=== PATIENT | male | born 1955 | race Caucasian/White ===

== ENCOUNTER 2017-08-10 14:45 | Inpatient (IN) | payer MEDICARE, MEDICAID ==
[2017-08-10 16:18] LABS: #Lymphocytes 0.5 thou/uL (1.20-3.40); #Monocytes 0.1 thou/uL (0.11-0.59); #Neutrophils 8.2 thou/uL (1.40-6.50); %Eosinophils 0.2 % (0.0-10.0); %Lymphocytes 5.6 % (21.0-51.0); %Monocytes 1.1 % (0.0-10.0); Hemoglobin 14.2 g/dL (14.0-18.0); Mean Corpuscular HGB CONC 32.6 g/dL (32.0-36.0); Mean Corpuscular Hemoglobin 26.7 pg (27.0-31.0); Mean Corpuscular Volume 81.9 fl (80.0-94.0); Mean Platelet Volume 8.1 fL (7.4-10.4); Platelet Count 175 thou/uL (130-400); RBC Distribution Width 17.2 % (11.5-14.5); Red Blood Cell (RBC) Count 5.34 mill/uL (4.70-6.10); White Blood Cell (WBC) Count 8.8 thou/uL (4.8-10.8)
--- NOTE | 2017-08-10 16:28 | RAD ---
PORTABLE AP CHEST X-RAY 08/10/17 HISTORY: Dyspnea. Chest wall pain that started yesterday at work. Pain is increased with deep breathing and ar m movement. COMPARISON: 04/23/17. FINDINGS: A loop recorder again overlies the left mid chest. The cardiac silhouette and pulmonary vasculature a re within normal limits. The lungs are clear. there has been no interval change from the prior exam. IMPRESSION: No acute cardiopulmonary process. POS: [facility]
[2017-08-10 16:37] LABS: ALT (SGPT) 23 U/L (8-55); AST (SGOT) 17 U/L (5-34); Alkaline Phosphatase 78 U/L (40-150); Anion Gap 17 mmol/L (10-20); BUN (Urea Nitrogen) 22 mg/dL (8.4-25.7); Bilirubin, Total 0.4 mg/dL (0.2-1.2); Calc. Creatinine Clearance 0 mL/min (70-130); Calcium 9.5 mg/dL (7.8-10.44); Carbon Dioxide 21 mmol/L (23-31); Chloride 103 mmol/L (98-107); Estimated GFR-MDRD 44; Globulin 2.7 g/dL (2.4-3.5); Glucose 314 mg/dL (80-115); Lipase 25 U/L (8-78); Potassium 3.7 mmol/L (3.5-5.1); Protein, Total 6.7 g/dL (5.8-8.1); Sodium 137 mmol/L (136-145)
[2017-08-10 16:42] LABS: CKMB 2.4 ng/mL (0-6.6); Troponin I 0.019 ng/mL (< 0.028)
[2017-08-10] MEDS ORDERED: HYDROcodone/Acetaminophen 10/325 mg Tablet ONE (17:46)
[2017-08-10] MEDS ORDERED: Dextrose 5% in Water 1,000 ML IV PRN (18:38)
[2017-08-10] MEDS ORDERED: Dextrose 50% Abboject 50 ML SYRINGE SLOW IVP PRN (18:38)
[2017-08-10] MEDS ORDERED: Guaifenesin DM 100-10/5 ML UDCUP PO PRN (18:38)
[2017-08-10] MEDS ORDERED: HumaLOG 300 UNITS/3 ML VIAL SC PRN (18:38)
[2017-08-10] MEDS ORDERED: cefTRIAXone\\ROCEPHIN 1 GM in Sodium Chloride 0.9% 100 ML IVPB SCH (18:38)
[2017-08-10] MEDS ORDERED: Acetaminophen 325 MG TAB PO PRN (18:38)
[2017-08-10] MEDS ORDERED: Potassium Chloride 20 MEQ TAB PO SCH (20:15)
[2017-08-10] MEDS ORDERED: Theophyllin SR 24HR 100 MG CAP PO SCH (21:00)
[2017-08-10] MEDS ORDERED: traZODone HCl 50 MG TAB PO SCH (21:00)
[2017-08-10 21:50] VITALS: BMI 51.5
[2017-08-10] MEDS: cefTRIAXone\\ROCEPHIN 1 GM, Syringe 0.4 ML in Sterile Water 9.6 ML SLOW IVP SCH (22:03)
[2017-08-10] MEDS: Furosemide 40 MG TAB PO SCH (22:07)
[2017-08-10] MEDS: Benzonatate 100 MG CAP PO SCH (22:07)
[2017-08-10] MEDS: Docusate 100 MG CAP PO SCH (22:07)
[2017-08-10] MEDS: busPIRone HCl 5 MG TAB PO SCH (22:07)
[2017-08-10] MEDS: Famotidine 20 MG TAB PO SCH (22:07)
[2017-08-10] MEDS: Sucralfate 1 GM TAB PO SCH (22:08)
[2017-08-10] MEDS: Montelukast Sodium 10 mg Tablet PO SCH (22:08)
[2017-08-10] MEDS: Polyethylene Glycol 3350 17 GM Packet PO SCH (22:08)
[2017-08-10] MEDS: Gabapentin 300 MG CAP PO SCH (22:08)
[2017-08-10] MEDS: Heparin 5,000 UNITS/ML VIAL SC SCH (22:09)
[2017-08-10] MEDS: Insulin Detemir 100 UNITS/ML 40 UNITS in Pre-Filled Syringe 1 EACH SC SCH (22:09)
[2017-08-10] MEDS: Azithromycin 500 MG in Sodium Chloride 0.9% 250 ML 250 ML IVPB SCH (22:10)
[2017-08-10] MEDS: HYDROcodone/Acetaminophen 5/325 mg Tablet PO PRN (22:37)
--- NOTE | 2017-08-10 23:08 | HP ---
REASON FOR ADMISSION: COPD exacerbation, acute respiratory failure with hypoxia. HISTORY OF PRESENTING ILLNESS: The patient gives history of having worsening cough with wheezing from last 2 days. This morning, it got worse. The home health nurse came to check on him and told him to call his qa tester, Dr. Werner. Dr. Werner was on vacation and the office told him to come to the Emergency Room. He is normally on 2 L oxygen at home. He uses CPAP at night. He has cough with expectoration of white phlegm. He has not had any fever at home. He has taken his flu shot for this year. He uses electric chair and walks with a rolling walker for minimal distences inside the house. He stays with his . He has had some chest discomfort due to coughing episodes. PAST MEDICAL AND SURGICAL HISTORY: History of chronic respiratory failure with COPD, on home oxygen; CHF with diastolic dysfunction, morbid obesity, obstructive sleep apnea, on CPAP, has a LINQ recorder, history of toxoid in the past, coronary artery disease with prior stent and PTCA done to LAD in 03/2016, diabetes mellitus type 2 requiring insulin; chronic back pain, on narcotics; severe peripheral neuropathy, the reason for him to be wheelchair bound; hypertension, history of CO in 1996, sinus surgery, cardiac cath x2. CURRENT MEDICATIONS: The patient takes Norvasc 10 mg p.o. daily, Singulair 10 mg p.o. at bedtime, DuoNebs 4 times daily, hydralazine 25 mg twice daily, aspirin 81 mg daily, glipizide 10 mg twice daily, alendronate 70 mg p.o. once weekly, MiraLax 17 g daily, Lasix 40 mg twice daily, Prozac 40 mg q.a.m., lisinopril 10 mg daily, buspirone 5 mg twice daily, potassium chloride 20 mEq twice daily, spironolactone 12.5 mg twice daily, Restoril 30 mg p.o. at bedtime , Protonix 40 mg daily, Zyrtec 10 mg p.o. daily, fluticasone nasal spray, Tessalon 100 mg 3 times daily, Lantus 27 units subcu daily, gabapentin 300 mg 3 times daily, theophylline extended release 200 mg twice daily, Ultram p.r.n. twice dairy, Advair Diskus 500/50 mcg one puff twice daily. ALLERGIES: FLOMAX AND LEVAQUIN. PERSONAL HISTORY: Quit smoking in 1996. Does not abuse alcohol or drugs. He lives with his . FAMILY HISTORY: Mom in her 70s, she of stroke and its complications. She has also had coronary artery disease. Father in his 60s, he has had COPD, heart failure, and hypertension. Had older brother who of COPD and its complications at the age of 63 years. REVIEW OF SYSTEMS: The following complete review of systems was negative, unless otherwise mentioned in the HPI or below: Constitutional: Weight loss or gain, ability to conduct usual activities. Skin: Rash, itching. Eyes: Double vision, pain. ENT/Mouth: Nose bleeding, neck stiffness, pain, tenderness. Cardiovascular: Palpitations, dyspnea on exertion, orthopnea. Respiratory: Shortness of breath, wheezing, cough, hemoptysis, fever or night sweats. Gastrointestinal: Poor appetite, abdominal pain, heartburn, nausea, vomiting, constipation, or diarrhea. Genitourinary: Urgency, frequency, dysuria, nocturia. Musculoskeletal: Pain, swelling. Neurologic/Psychiatric: Anxiety, depression. Allergy/Immunologic: Skin rash, bleeding tendency. PHYSICAL EXAMINATION: GENERAL: The patient is a 61-year-old male who is currently wheezing. VITAL SIGNS: Blood pressure 156/90, pulse 100 per minute, respiratory rate 24 per minute, temperature 98.5 degrees Fahrenheit, and saturating 96% on 3 L nasal cannula. NECK: Supple. No elevated JVD. EYES: Extraocular muscles are intact. Pupils are reacting to light. Oral cavity, mucous membranes are moist. No exudate or congestion. CARDIOVASCULAR SYSTEM: S1, S2 heard. Regular rhythm. RESPIRATORY SYSTEM: Air entry 1+ bilateral. Scattered wheezes plus bilateral. ABDOMEN: Soft, bowel sounds heard. No tenderness, rigidity or guarding. EXTREMITIES: There is 2+ peripheral edema. No calf tenderness. VASCULAR SYSTEM: Peripheral pulses 1+ bilateral. No ischemic ulcerations or gangrene. CENTRAL NERVOUS SYSTEM: No gross focal deficits seen. The patient is alert, awake, oriented well. PSYCHIATRIC SYSTEM: The patient's mood is euthymic. No hallucinations or delusions. LABORATORY DATA AND X-RAY FINDINGS: EKG done shows normal sinus rhythm at 98 beats per minute with nonspecific ST-T wave changes. White count of 8, hemoglobin and hematocrit 14 and 43, platelet count is 175, MCV is 81 with 93% neutrophils. BUN 22, creatinine 1.6, glucose 314. Serum bicarbonate 21. Liver enzymes within normal limits. BNP is 70 and troponin I is within normal limits. Lipase is 25. Influenza A and B antigens are negative. Chest x-ray done shows no acute infiltrate. CLINICAL IMPRESSION AND PLAN: The patient will be admitted to telemetry for acute on chronic obstructive pulmonary disease exacerbation, acute on chronic respiratory failure with hypoxia. He will be placed on ceftriaxone and Zithromax as the patient is allergic to LEVAQUIN. He will also be on Solu- Medrol 40 mg IV q.6 hourly and DuoNebs q.6 hourly. We will continue theophylline extended release as before. We will continue aspirin, Plavix, Lipitor, Norvasc, buspirone, Lasix with potassium, gabapentin, Singulair, MiraLax as before. His Restoril will be held in view of his lung condition at present. We will place him on Levemir 40 units subcu at bedtime for now as the patient will be on steroids. We will consult Dr. Torres who is bond trader for Dr. Werner for Pulmonology. [facility]
[2017-08-11 06:11] LABS: #Eosinphils 0.1 thou/uL (0.0-0.7); #Lymphocytes 0.6 thou/uL (1.20-3.40); #Monocytes 0.1 thou/uL (0.11-0.59); %Eosinophils 1.3 % (0.0-10.0); %Lymphocytes 6.6 % (21.0-51.0); %Monocytes 1.2 % (0.0-10.0); %Neutrophils 90.9 % (42.0-75.0); Hemoglobin 13.9 g/dL (14.0-18.0); Mean Corpuscular HGB CONC 30.4 g/dL (32.0-36.0); Mean Corpuscular Hemoglobin 25.6 pg (27.0-31.0); Mean Corpuscular Volume 84.4 fl (80.0-94.0); Mean Platelet Volume 9.4 fL (7.4-10.4); Platelet Count 218 thou/uL (130-400); RBC Distribution Width 17.5 % (11.5-14.5); Red Blood Cell (RBC) Count 5.41 mill/uL (4.70-6.10); White Blood Cell (WBC) Count 8.8 thou/uL (4.8-10.8)
[2017-08-11 06:21] LABS: ALT (SGPT) 22 U/L (8-55); AST (SGOT) 25 U/L (5-34); Albumin 3.9 g/dL (3.4-4.8); Alkaline Phosphatase 76 U/L (40-150); Anion Gap 22 mmol/L (10-20); BUN (Urea Nitrogen) 25 mg/dL (8.4-25.7); Bilirubin, Total 0.4 mg/dL (0.2-1.2); Calc. Creatinine Clearance 95 mL/min (70-130); Calcium 9.3 mg/dL (7.8-10.44); Carbon Dioxide 16 mmol/L (23-31); Chloride 104 mmol/L (98-107); Estimated GFR-MDRD 41; Globulin 3.3 g/dL (2.4-3.5); Glucose 339 mg/dL (80-115); Potassium 4.6 mmol/L (3.5-5.1); Protein, Total 7.2 g/dL (5.8-8.1); Sodium 137 mmol/L (136-145)
[2017-08-11] MEDS: Potassium Chloride 20 MEQ TAB PO SCH ×2 (07:59→17:21)
[2017-08-11] MEDS: busPIRone HCl 5 MG TAB PO SCH ×2 (08:01→21:26)
[2017-08-11] MEDS: Benzonatate 100 MG CAP PO SCH ×3 (08:01→21:24)
[2017-08-11] MEDS: Atorvastatin Calcium 20 MG TAB PO SCH (08:01)
[2017-08-11] MEDS: Amlodipine 10 MG TAB PO SCH (08:01)
[2017-08-11] MEDS: Clopidogrel Bisulfate 75 MG TAB PO SCH (08:01)
[2017-08-11] MEDS: Heparin 5,000 UNITS/ML VIAL SC SCH ×3 (08:02→22:40)
[2017-08-11] MEDS: Furosemide 40 MG TAB PO SCH ×2 (08:02→21:25)
[2017-08-11] MEDS: Docusate 100 MG CAP PO SCH ×2 (08:02→21:26)
[2017-08-11] MEDS: Famotidine 20 MG TAB PO SCH ×2 (08:02→21:26)
[2017-08-11] MEDS: FLUoxetine HCl 20 MG CAP PO SCH (08:02)
[2017-08-11] MEDS: Gabapentin 300 MG CAP PO SCH ×3 (08:02→21:26)
[2017-08-11] MEDS: HumaLOG 300 UNITS/3 ML VIAL SC PRN ×3 (08:03→17:21)
[2017-08-11] MEDS: Sucralfate 1 GM TAB PO SCH ×2 (08:03→21:25)
[2017-08-11] MEDS: THEOPHYLLINE 80 MG/15 ML PO SCH ×2 (10:13→22:40)
[2017-08-11] MEDS: UDCUP PO SCH ×2 (10:13→22:40)
[2017-08-11] MEDS: HYDROcodone/Acetaminophen 5/325 mg Tablet PO PRN (11:21)
--- NOTE | 2017-08-11 12:01 | PDOC.PN ---
- Subjective Encounter Start Date: 08/11/17 Encounter Start Time: 12:00 Mr. Hernandez says he feels much better. He says he is breathing easier, and his cough has improved. He says he had trouble sleeping, and would like his sleeping medication tonight. - Objective Resuscitation Status: Resuscitation Status FULL:Full Resuscitation MAR Reviewed: Yes Vital Signs & Weight: Vital Signs (12 hours) Temp Pulse Resp BP Pulse Ox 08/11/17 08:01 103 H 08/11/17 07:54 97.7 F 103 H 20 177/91 H 90 L 08/11/17 07:10 97 08/11/17 07:07 95 20 97 08/11/17 04:00 97.8 F 103 H 16 172/105 H 91 L 08/11/17 00:02 100 20 97 Weight Weight 329 lb I&O: 08/10/17 08/11/17 08/12/17 06:59 06:59 06:59 Intake Total 240 Output Total 1500 Balance -1260 Result Diagrams: 08/11/17 04:06 08/11/17 04:06 Additional Labs: Accuchecks 08/11/17 08/10/17 05:59 21:52 POC Glucose 276 H 385 H Phys Exam - Physical Examination HEENT: PERRLA Respiratory: no wheezing decreased air movement Cardiovascular: RRR, no significant murmur Gastrointestinal: soft, non-tender, positive bowel sounds Musculoskeletal: edema present 2+ edema, bilaterally with chronic venous stasis changes Dx/Plan (1) Acute and chronic respiratory failure with hypoxia Code(s): J96.21 - ACUTE AND CHRONIC RESPIRATORY FAILURE WITH HYPOXIA Status: Acute Comment: Continue pulmonary support, Duonebs, Spiriva, Symbicort, Solumedrol, O2, Rocephin d/c'd, Doxycycline 100mg BID (2) COPD exacerbation Code(s): J44.1 - CHRONIC OBSTRUCTIVE PULMONARY DISEASE W (ACUTE) EXACERBATION Status: Chronic Comment: See #1 (3) DM type 2 (diabetes mellitus, type 2) Status: Chronic (4) Hypertension Code(s): I10 - ESSENTIAL (PRIMARY) HYPERTENSION Status: Chronic Qualifiers: (5) Morbid obesity Code(s): E66.01 - MORBID (SEVERE) OBESITY DUE TO EXCESS CALORIES Status: Chronic - Plan * Acute on chronic respiratory failure with hypoxemia due to COPD exacerbation- improved overnight * Will change to oral steroids, and re-assess in the AM * Continue Rocephin and Azithromycin, as well as Duonebs * DM- blood glucose is elevated- likely from steroids- will re-start Glyburide * HTN- blood pressure is elevated- will re-start Hydralazine and monitor.
[2017-08-11] MEDS ORDERED: hydrALAZINE 25 MG TAB PO PRN (12:04)
--- NOTE | 2017-08-11 15:39 | EKG ---
Test Reason : Blood Pressure : / mmHG Vent. Rate : 098 BPM Atrial Rate : 098 BPM P-R Int : 122 ms QRS Dur : 092 ms QT Int : 394 ms P-R-T Axes : 033 002 024 degrees QTc Int : 503 ms Sinus rhythm with Premature atrial complexes Possible Left atrial enlargement Prolonged QT Abnormal ECG Confirmed by PEPE CROWDER, DENNY ([id number]), editor newspaper LATRICIA SWARTZ ([id number]) on 08/11/2017 3:39:04 PM Referred By: Confirmed By:DENNY CANTU MD
[2017-08-11] MEDS ORDERED: clonazePAM 1 MG TAB PO SCH (21:00)
[2017-08-11] MEDS ORDERED: traZODone HCl 50 MG TAB PO SCH (21:00)
[2017-08-11] MEDS: Montelukast Sodium 10 mg Tablet PO SCH (21:25)
[2017-08-11] MEDS: hydrALAZINE 25 MG TAB PO SCH (21:25)
[2017-08-11] MEDS: glipiZIDE 10 MG TAB PO SCH (21:25)
[2017-08-11] MEDS: Polyethylene Glycol 3350 17 GM Packet PO SCH (21:29)
[2017-08-11] MEDS: cefTRIAXone\\ROCEPHIN 1 GM, Syringe 0.4 ML in Sterile Water 9.6 ML SLOW IVP SCH (22:39)
[2017-08-11] MEDS: Azithromycin 500 MG in Sodium Chloride 0.9% 250 ML 250 ML IVPB SCH (22:40)
[2017-08-11] MEDS: Insulin Detemir 100 UNITS/ML 40 UNITS in Pre-Filled Syringe 1 EACH SC SCH (22:41)
[2017-08-12 04:42] LABS: #Lymphocytes 1.5 thou/uL (1.20-3.40); #Neutrophils 10.6 thou/uL (1.40-6.50); %Basophils 0.1 % (0.0-1.0); %Eosinophils 0.1 % (0.0-10.0); %Lymphocytes 11.6 % (21.0-51.0); %Monocytes 7.7 % (0.0-10.0); %Neutrophils 80.5 % (42.0-75.0); Hemoglobin 13.1 g/dL (14.0-18.0); Mean Corpuscular HGB CONC 31.5 g/dL (32.0-36.0); Mean Corpuscular Hemoglobin 25.9 pg (27.0-31.0); Mean Corpuscular Volume 82.4 fl (80.0-94.0); Mean Platelet Volume 7.8 fL (7.4-10.4); Platelet Count 200 thou/uL (130-400); RBC Distribution Width 17.2 % (11.5-14.5); Red Blood Cell (RBC) Count 5.05 mill/uL (4.70-6.10); White Blood Cell (WBC) Count 13.2 thou/uL (4.8-10.8)
[2017-08-12 05:01] LABS: Anion Gap 14 mmol/L (10-20); BUN (Urea Nitrogen) 30 mg/dL (8.4-25.7); Calc. Creatinine Clearance 99 mL/min (70-130); Carbon Dioxide 24 mmol/L (23-31); Chloride 106 mmol/L (98-107); Estimated GFR-MDRD 43; Glucose 142 mg/dL (80-115); Potassium 3.2 mmol/L (3.5-5.1); Sodium 141 mmol/L (136-145)
[2017-08-12 06:35] VITALS: TEMP 97.9
[2017-08-12] MEDS ORDERED: predniSONE 20 MG TAB PO SCH (08:00)
[2017-08-12] MEDS: Amlodipine 10 MG TAB PO SCH (09:26)
[2017-08-12 09:27] VITALS: BP 167/93
[2017-08-12] MEDS: Potassium Chloride 20 MEQ TAB PO SCH (09:27)
[2017-08-12] MEDS: Famotidine 20 MG TAB PO SCH (09:27)
[2017-08-12] MEDS: Furosemide 40 MG TAB PO SCH (09:27)
[2017-08-12] MEDS: Sucralfate 1 GM TAB PO SCH (09:27)
[2017-08-12] MEDS: hydrALAZINE 25 MG TAB PO SCH (09:27)
[2017-08-12] MEDS: Benzonatate 100 MG CAP PO SCH ×2 (09:28→14:31)
[2017-08-12] MEDS: Atorvastatin Calcium 20 MG TAB PO SCH (09:28)
[2017-08-12] MEDS: glipiZIDE 10 MG TAB PO SCH (09:28)
[2017-08-12] MEDS: FLUoxetine HCl 20 MG CAP PO SCH (09:28)
[2017-08-12] MEDS: Gabapentin 300 MG CAP PO SCH ×2 (09:28→14:31)
[2017-08-12] MEDS: Clopidogrel Bisulfate 75 MG TAB PO SCH (09:28)
[2017-08-12] MEDS: Docusate 100 MG CAP PO SCH (09:29)
[2017-08-12] MEDS: busPIRone HCl 5 MG TAB PO SCH (09:29)
[2017-08-12] MEDS: Heparin 5,000 UNITS/ML VIAL SC SCH ×2 (09:29→14:31)
--- NOTE | 2017-08-12 14:00 | PDOC.PN ---
- Subjective Encounter Start Date: 08/12/17 Encounter Start Time: 13:59 was seen today in follow-up of Acute on chronic respiratory failure. He says he feels much better. He feels he is at his baseline. - Objective Resuscitation Status: Resuscitation Status FULL:Full Resuscitation MAR Reviewed: Yes Vital Signs & Weight: Vital Signs (12 hours) Temp Pulse Resp BP BP Pulse Ox 08/12/17 09:27 87 167/93 H 08/12/17 09:26 87 167/93 H 08/12/17 08:00 97.9 F 87 22 H 167/93 H 96 08/12/17 04:35 97.9 F 87 20 164/102 H 94 L Weight Weight 329 lb I&O: 08/11/17 08/12/17 08/13/17 06:59 06:59 06:59 Intake Total 1720 Output Total 2200 Balance -480 Result Diagrams: 08/12/17 03:55 08/12/17 03:55 Additional Labs: Accuchecks 08/12/17 08/12/17 08/11/17 12:25 04:34 16:57 POC Glucose 117 H 130 H 280 H Phys Exam - Physical Examination HEENT: PERRLA Respiratory: no rales, wheezing present Cardiovascular: RRR, no significant murmur, no rub Gastrointestinal: soft, non-tender, positive bowel sounds Musculoskeletal: edema present trace pedal edema Dx/Plan (1) Acute and chronic respiratory failure with hypoxia Code(s): J96.21 - ACUTE AND CHRONIC RESPIRATORY FAILURE WITH HYPOXIA Status: Acute Comment: Continue pulmonary support, Duonebs, Spiriva, Symbicort, Solumedrol, O2, Rocephin d/c'd, Doxycycline 100mg BID (2) COPD exacerbation Code(s): J44.1 - CHRONIC OBSTRUCTIVE PULMONARY DISEASE W (ACUTE) EXACERBATION Status: Chronic Comment: See #1 (3) DM type 2 (diabetes mellitus, type 2) Status: Chronic (4) Hypertension Code(s): I10 - ESSENTIAL (PRIMARY) HYPERTENSION Status: Chronic Qualifiers: (5) Morbid obesity Code(s): E66.01 - MORBID (SEVERE) OBESITY DUE TO EXCESS CALORIES Status: Chronic - Plan * Acute on chronic respiratory failure- improving * DM- blood glucose is stable * He can be transitioned to oral antibiotics, and plan on discharge home today with close Outpatient Follow-up..
[2017-08-12] MEDS: THEOPHYLLINE 80 MG/15 ML PO SCH (14:29)
[2017-08-12] MEDS: UDCUP PO SCH (14:29)
--- NOTE | 2017-08-12 23:02 | DIS ---
PRIMARY CARE PHYSICIAN: Kashmir Edwards D.O. DATE OF ADMISSION: 08/10/2017 DATE OF DISCHARGE: 08/12/2017 DISCHARGE DISPOSITION: Home. PRIMARY DISCHARGE DIAGNOSES: 1. Chronic obstructive pulmonary disease exacerbation. 2. Diabetes mellitus, type 2. 3. Obstructive sleep apnea on CPAP. 4. History of coronary artery disease with stent. 5. Severe peripheral neuropathy. 6. Chronic diastolic heart failure and the patient also has history of chronic respiratory failure w ith hypoxemia on home O2. 7. Morbid obesity. CODE STATUS: FULL CODE. ALLERGIES: LEVAQUIN and FLOMAX. HOSPITAL COURSE: Mr. Hernandez is a pleasant 61-year-old gentleman who came to the emergency room with c omplaints of shortness of breath. He was found to be hypoxic. He had been trying to treat himself a t home without relief. As a result, he came to the emergency room where he was admitted with a COPD exacerbation. Chest x-ray showed no acute pulmonary process such as pneumonia. He was treated with empiric IV antibiotics as well as IV steroids and DuoNebs and cough suppressants. He was improved af ter a few days in the hospital and was subsequently able to be discharged home; however, he will need close outpatient follow up hopefully within the week as he does have a history of severe COPD and to follow up again within 1-2 days with his primary care physician.
== END 2017-08-12 16:14 | disposition home or self-care (01) | DRG 189 ==
LOC: ERS 14:45 → ERHOLD 16:51 → 2NO 21:27 → T4-A 08-11 20:40
PROVIDERS: ADMIT Internal Medicine; ATTEND Internal Medicine
DX: J96.21 Acute and chronic respiratory failure with hypoxia (principal); I11.0 Hypertensive heart disease with heart failure; I50.32 Chronic diastolic (congestive) heart failure; E66.01 Morbid (severe) obesity due to excess calories; Z99.81 Dependence on supplemental oxygen; J44.1 Chronic obstructive pulmonary disease with (acute) exacerbation; Z68.43 Body mass index [BMI] 50.0-59.9, adult; E87.5 Hyperkalemia; G62.9 Polyneuropathy, unspecified; E11.9 Type 2 diabetes mellitus without complications; G47.33 Obstructive sleep apnea (adult) (pediatric); I25.10 Atherosclerotic heart disease of native coronary artery without angina pectoris; Z95.5 Presence of coronary angioplasty implant and graft; F17.210 Nicotine dependence, cigarettes, uncomplicated
CPT/HCPCS: 36415; 36416; 71045; 80048; 80053; 82553; 83690; 83880; 84484; 85025; 87040; 87804; 93005; 94640; 99406; A4216; G8978-GP-CJ; G8979-GP-CI; J0456; J0696; J1644; J1815; J2920; J7050; J7506; J7620

== ENCOUNTER 2017-09-05 16:39 | Inpatient (IN) | payer MEDICARE, MEDICAID ==
[2017-09-05 17:14] LABS: #Basophils 0.1 thou/uL (0.0-0.2); #Eosinphils 0.1 thou/uL (0.0-0.7); #Lymphocytes 1.7 thou/uL (1.20-3.40); #Neutrophils 15.8 thou/uL (1.40-6.50); %Basophils 0.4 % (0.0-1.0); %Eosinophils 0.3 % (0.0-10.0); %Lymphocytes 9.2 % (21.0-51.0); %Monocytes 5.3 % (0.0-10.0); %Neutrophils 84.9 % (42.0-75.0); Hemoglobin 14.6 g/dL (14.0-18.0); Mean Corpuscular HGB CONC 32.5 g/dL (32.0-36.0); Mean Corpuscular Hemoglobin 27.2 pg (27.0-31.0); Mean Corpuscular Volume 83.6 fl (80.0-94.0); Mean Platelet Volume 7.7 fL (7.4-10.4); Platelet Count 195 thou/uL (130-400); RBC Distribution Width 17.8 % (11.5-14.5); Red Blood Cell (RBC) Count 5.36 mill/uL (4.70-6.10); White Blood Cell (WBC) Count 18.6 thou/uL (4.8-10.8)
[2017-09-05 17:17] LABS: PTT 30.4 SEC (22.9-36.1)
[2017-09-05 17:18] LABS: Prothrombin Time 12.9 SEC (12.0-14.7)
[2017-09-05 17:20] LABS: Actual Bicarbonate (HCO3a) 24.2 mEq/L (22-26); Base Excess (BEa) 0.1 mEq/L (0 (+/-) 2.5); CO2 Tension 37.6 mmHg (35.0-45.0); Hematocrit-ABG 47.8 % (42.0-52.0); Hemoglobin (Hb) 14.3 g/dL (14.0-18.0); O2 Tension (PaO2) 85.3 mmHg (80.0-100.0); pH, Arterial 7.43 (7.35-7.45)
[2017-09-05 17:21] LABS: Calcium, Ionized 1.2 mmol/L (1.12-1.30); Puncture Site LRA
[2017-09-05] MEDS ORDERED: Dexamethasone 4 mg/ml Vial ONE (17:23)
[2017-09-05] MEDS ORDERED: Albuterol Sulfate 2.5 mg/0.5 ml Neb ONE ×2 (17:24)
[2017-09-05] MEDS ORDERED: Magnesium 2 GM/NS 0.9% 100 ML 2 GM in Premix Bag 1 BAG IVPB SCH (17:30)
[2017-09-05 17:32] LABS: ALT (SGPT) 16 U/L (8-55); AST (SGOT) 13 U/L (5-34); Albumin 3.9 g/dL (3.4-4.8); Alkaline Phosphatase 80 U/L (40-150); Anion Gap 17 mmol/L (10-20); BUN (Urea Nitrogen) 19 mg/dL (8.4-25.7); Bilirubin, Total 0.6 mg/dL (0.2-1.2); Calc. Creatinine Clearance 0 mL/min (70-130); Calcium 9.2 mg/dL (7.8-10.44); Carbon Dioxide 23 mmol/L (23-31); Chloride 99 mmol/L (98-107); Estimated GFR-MDRD 40; Globulin 2.9 g/dL (2.4-3.5); Glucose 371 mg/dL (80-115); Potassium 3.9 mmol/L (3.5-5.1); Protein, Total 6.8 g/dL (5.8-8.1); Sodium 135 mmol/L (136-145)
[2017-09-05] MEDS ORDERED: Ondansetron HCl/PF 4 MG/2 ML Vial ONE (17:32)
[2017-09-05 17:36] LABS: CK (CPK) 255 U/L (30-200); Lipase 27 U/L (8-78)
[2017-09-05 17:38] LABS: CKMB 1.6 ng/mL (0-6.6); Troponin I 0.036 ng/mL (< 0.028)
--- NOTE | 2017-09-05 17:44 | RAD ---
PORTABLE CHEST: 09/05/17 COMPARISON: 08/10/17 study. HISTORY: Shortness of breath. FINDINGS: Heart size is within normal limits. There is some atherosclerotic changes of the aorta. The lungs dave w some chronic change without focal infiltrates. Some questionable slight blunting to the left costop hrenic angle. This could be technique related. IMPRESSION: Slight blunting to the left costophrenic angle. This could indicate a small effusion. PA and lateral chest film would be suggested if indicated. This could just be related to technique and overlap of ri bs and soft tissues. POS: [facility]
[2017-09-05] MEDS ORDERED: Azithromycin 500 MG in Sodium Chloride 0.9% 250 ML 250 ML IVPB ONE (17:45)
[2017-09-05 18:32] LABS: Bilirubin Negative (Negative); Blood, Urine Negative (Negative); Clarity CLEAR (Clear); Glucose, Urine (Dipstick) 500 mg/dL (Negative); Leukocyte Negative (Negative); Nitrite Negative (Negative); Protein, Urine (Dipstick) 30 mg/dL (Neg-Trace); Specific Gravity, Urine 1.014 (1.002-1.036); Urobilinogen 0.2 mg/dL (0.2-1.0)
[2017-09-05 18:35] LABS: Bacteria/HPF 2+ HPF (None Seen); Hyaline Casts/LPF 0-3 HYALINE CAST LPF (0-3 Hyaline); RBC/HPF None Seen HPF (0-3); Squamous Epithelial None Seen HPF (0-3); WBC/HPF 0-3 HPF (0-3)
[2017-09-05] MEDS ORDERED: Nitroglycerin 2% Ointment 1 INCH/1 GM Packet ONE (19:01)
[2017-09-05] MEDS ORDERED: Dextrose 50% Abboject 50 ML SYRINGE SLOW IVP PRN (20:28)
[2017-09-05] MEDS ORDERED: Dextrose 5% in Water 1,000 ML IV PRN (20:28)
[2017-09-05] MEDS ORDERED: Nitroglycerin 0.4 MG TAB (25 Tab Bottle) PO PRN (20:29)
[2017-09-05] MEDS ORDERED: Furosemide 100 MG in Sodium Chloride 0.9% 100 ML IVPB SCH (20:30)
[2017-09-05] MEDS ORDERED: Calcium Carbonate 500 MG ChewTAB PO PRN (20:31)
[2017-09-05] MEDS ORDERED: Ondansetron ODT 4 MG TAB PO PRN (20:31)
[2017-09-05] MEDS ORDERED: Ondansetron HCl/PF 4 MG/2 ML Vial IVP PRN (20:31)
[2017-09-05] MEDS ORDERED: Acetaminophen 325 MG TAB PO PRN (20:31)
[2017-09-05] MEDS ORDERED: Senokot 8.6 MG TAB PO PRN (20:31)
[2017-09-05] MEDS ORDERED: Bisacodyl 10 MG SUPP PR PRN (20:31)
--- NOTE | 2017-09-05 20:49 | HP ---
DATE OF ADMISSION: 09/05/2017 PRIMARY CARE PHYSICIAN: Dr. Kashmir Edwards. PRIMARY RADIO COMMUNICATION COORDINATOR: The patient has seen Dr. Katz in the past. CHIEF COMPLAINT: Shortness of breath. HISTORY OF PRESENT ILLNESS: The patient is a 61-year-old male with morbid obesity; COPD; chronic shital stolic heart failure; obstructive sleep apnea, on CPAP; chronic respiratory failure, on home O2; rubi nary artery disease, status post stent; and diabetes mellitus, type 2; presented to the emergency [facility] with above complaints. The patient was discharged from this facility approximately 3 weeks ago wit h a diagnosis of COPD exacerbation. Over the last one week, the patient has gradual worsening shortness of breath along with wheezing and productive cough. He has gained around 11 pounds in the last 10 days or so. He states that he is c ompliant with fluid restriction and his medications. He was short of breath on minimal exertion. He denies any fevers, chills, or sick contacts. No chest pain, palpitations, diaphoresis, nausea or vo miting reported. In the emergency room, his initial vital signs showed temperature 98.6, respiration of 22, pulse rate of 108 with a blood pressure of 199/106 with O2 saturation of 100% on nonrebreather. His chest x-ra y was negative for infiltrate. It showed small bilateral pleural effusion. His EKG showed sinus tac hycardia with left axis deviation and PVCs. He received IV fluids, aspirin, ceftriaxone, Decadron, D uoNebs, and nebulizer treatment along with nitro patch in the emergency room. PAST MEDICAL HISTORY: 1. Chronic diastolic heart failure. 2. Obstructive sleep apnea, on CPAP. 3. Chronic respiratory failure, on home oxygen. 4. Morbid obesity. 5. Diabetes mellitus, type 2. 6. Hypertension. 7. Dyslipidemia. 8. Coronary artery disease, status post myocardial infarction and stent placement. 9. Pulmonary hypertension. 10. Chronic obstructive pulmonary disease. 11. Peripheral neuropathy. 12. Chronic low back pain. PAST SURGICAL HISTORY: 1. Cardiac catheterization. 2. Sinus surgery. 3. Coronary stent placement in 2016. ALLERGIES: The patient is allergic to FLOMAX that causes nausea and LEVAQUIN that causes cardiac pro blems. SOCIAL HISTORY: The patient is a former smoker, quit in 1996. He is disabled, lives at home, FULL C ODE, makes his own decisions with the help of his family. FAMILY HISTORY: Positive for father with heart disease and mother with stroke. REVIEW OF SYSTEMS: The following complete review of systems was negative, unless otherwise mentioned in the HPI or below: Constitutional: Weight loss or gain, ability to conduct usual activities. Skin: Rash, itching. Eyes: Double vision, pain. ENT/Mouth: Nose bleeding, neck stiffness, pain, tenderness. Cardiovascular: Palpitations, dyspnea on exertion, orthopnea. Respiratory: Shortness of breath, wheezing, cough, hemoptysis, fever or night sweats. Gastrointestinal: Poor appetite, abdominal pain, heartburn, nausea, vomiting, constipation, or diarr hea. Genitourinary: Urgency, frequency, dysuria, nocturia. Musculoskeletal: Pain, swelling. Neurologic/Psychiatric: Anxiety, depression. Allergy/Immunologic: Skin rash, bleeding tendency. HOME MEDICATIONS: The patient is unable to recall any of his home medications. Family to bring accu rate list of medications later today. PHYSICAL EXAMINATION: VITAL SIGNS: As discussed above. GENERAL: A 61-year-old male, morbidly obese, in mild respiratory distress, able to complete short ph rases. HEENT: Head atraumatic, normocephalic. Sclerae are anicteric. Moist mucous membrane, no oral lesio n. NECK: Supple. JVD cannot be appreciated due to body habitus. LUNGS: Showed scattered wheezing with bibasilar rales. HEART: S1, S2 present. Regular rate and rhythm, tachycardic, no heaves or pulsation. ABDOMEN: Obese, soft. Bowel sounds present. EXTREMITIES: 4+ edema in bilateral lower extremities with some calf tenderness. SKIN: Warm and dry. LYMPH NODES: No palpable lymph nodes in the neck. PERIPHERAL VASCULAR: Radial pulses palpable bilaterally. MUSCULOSKELETAL: No joint swelling or tenderness. NEUROLOGIC: Grossly nonfocal, moves all four extremities. PSYCHIATRY: Alert, awake, oriented x3. LABORATORY AND X-RAY FINDINGS: 1. CBC showed WBC 18.6 with a platelet count of 195, hemoglobin 14.6. 2. PT, INR, PTT are in normal range. 3. Blood gases showed pH 7.43 with pCO2 of 37.6, pO2 85.3. 4. Chemistries showed sodium 135, potassium 3.9, chloride 99, bicarbonate 23, BUN 19, creatinine 1.7 5, glucose 371. Lactic acid 3.2. 5. Troponin of 0.036. 6. CK was 255, lipase was normal. 7. Influenza testing was negative. 8. Chest x-ray and EKG by my review as discussed above. IMPRESSION: 1. Acute on chronic diastolic heart failure. 2. Chronic obstructive pulmonary disease exacerbation. 3. Sepsis secondary to suspected pneumonia, questionable pneumococcal. 4. Hypertension. 5. Obstructive sleep apnea, on CPAP. 6. Morbid obesity. 7. Diabetes mellitus, type 2. 8. Chronic respiratory failure, on home oxygen. 9. Coronary artery disease, status post stent placement. 10. Diabetic neuropathy. 11. Chronic pain syndrome. 12. Hyponatremia. 13. Chronic kidney disease, stage 3. 14. Elevated troponins, probably secondary to congestive heart failure. PLAN: The patient will be monitored in the telemetry unit. The patient has elevated lactic acid. H e is intravascularly depleted and has third spacing. He will probably benefit from gentle diuresis w ith Lasix drip. We will also continue nebulizer treatment with low dose steroids. Cardiology will b e consulted. His last echocardiogram was in March of last year. His last cardiac catheterization w as in 03/2016. He had LAD stent placement at that time. We will get serial cardiac enzymes. Repeat lactic acid in a.m. Due to bilateral lower extremity swelling and pain, we will rule out deep venou s thrombosis. We will continue aspirin and Plavix. Insulin sliding scale. Resume home CPAP. Monit or renal function closely. Resume his home pain regimen once confirmed. Plan of care was discussed with the patient in detail. He stated understanding.
[2017-09-05] MEDS ORDERED: Sodium Chloride 0.9% 10 ML ONE (21:29)
[2017-09-05] MEDS ORDERED: Furosemide 20 MG/2 ML VIAL SLOW IVP SCH (21:30)
[2017-09-05] MEDS: Insulin Detemir 100 UNITS/ML 15 UNITS in Pre-Filled Syringe SC SCH (21:39)
[2017-09-05] MEDS: Docusate 100 MG CAP PO SCH (21:39)
[2017-09-05] MEDS: Famotidine 20 MG TAB PO SCH (21:39)
[2017-09-05] MEDS: Insulin Regular 300 UNITS/3 ML VIAL SC PRN (22:01)
[2017-09-05 22:06] LABS: Lactic Acid 2.6 mmol/L (0.5-2.2)
[2017-09-05 22:15] LABS: Troponin I 0.039 ng/mL (< 0.028)
[2017-09-05 22:57] VITALS: BMI 52.2
[2017-09-06 00:01] LABS: Troponin I 0.033 ng/mL (< 0.028)
[2017-09-06] MEDS: Insulin Regular 300 UNITS/3 ML VIAL SC PRN ×5 (02:46→20:43)
[2017-09-06 05:06] LABS: #Lymphocytes 0.7 thou/uL (1.20-3.40); #Monocytes 0.3 thou/uL (0.11-0.59); #Neutrophils 15.4 thou/uL (1.40-6.50); %Eosinophils 0.2 % (0.0-10.0); %Lymphocytes 4.4 % (21.0-51.0); %Monocytes 1.9 % (0.0-10.0); %Neutrophils 93.5 % (42.0-75.0); Hemoglobin 13.7 g/dL (14.0-18.0); Mean Corpuscular Volume 84.4 fl (80.0-94.0); Mean Platelet Volume 8.1 fL (7.4-10.4); Platelet Count 174 thou/uL (130-400); RBC Distribution Width 17.4 % (11.5-14.5); Red Blood Cell (RBC) Count 5.06 mill/uL (4.70-6.10); White Blood Cell (WBC) Count 16.5 thou/uL (4.8-10.8)
[2017-09-06 05:29] LABS: Albumin 3.7 g/dL (3.4-4.8); Anion Gap 16 mmol/L (10-20); BUN (Urea Nitrogen) 21 mg/dL (8.4-25.7); Calc. Creatinine Clearance 92 mL/min (70-130); Calcium 8.9 mg/dL (7.8-10.44); Carbon Dioxide 22 mmol/L (23-31); Chloride 102 mmol/L (98-107); Estimated GFR-MDRD 39; Glucose 422 mg/dL (80-115); Magnesium 2.2 mg/dL (1.6-2.6); Phosphorus 3.2 mg/dL (2.3-4.7); Sodium 136 mmol/L (136-145)
--- NOTE | 2017-09-06 07:52 | ULT ---
BILATERAL LOWER EXTREMITY VENOUS DOPPLER ULTRASOUND: Date: 09/06/17 HISTORY: Bilateral lower extremity edema, pain, and redness. TECHNIQUE: Katz scale ultrasound with color flow and spectral Doppler imaging of the deep venous systems of the lower extremities was performed bilaterally. FINDINGS: There is good flow, compression, and augmentation noted in the common femoral, femoral, deep femoral, popliteal, posterior tibial, and greater saphenous veins on either side. IMPRESSION: No evidence of deep venous thrombosis in either lower extremity. POS: [facility]
[2017-09-06] MEDS ORDERED: predniSONE 20 MG TAB PO SCH (08:00)
[2017-09-06] MEDS: Aspirin 81 mg Enteric Coated Tablet PO SCH (08:09)
[2017-09-06] MEDS: Enoxaparin Sodium 40 MG/0.4 ML SYRINGE SC SCH (08:10)
[2017-09-06] MEDS: Cefdinir 300 MG CAP PO SCH (08:10)
[2017-09-06] MEDS: Docusate 100 MG CAP PO SCH ×2 (08:10→20:41)
[2017-09-06] MEDS: Clopidogrel Bisulfate 75 MG TAB PO SCH (08:10)
[2017-09-06] MEDS ORDERED: Insulin Detemir 100 UNITS/ML 15 UNITS in Pre-Filled Syringe SC SCH (09:00)
[2017-09-06] MEDS: Insulin Detemir 100 UNITS/ML 25 UNITS in Pre-Filled Syringe 1 EACH SC SCH (10:08)
[2017-09-06] MEDS ORDERED: Furosemide 100 MG/10 ML VIAL SLOW IVP SCH (14:00)
--- NOTE | 2017-09-06 14:19 | CON ---
DATE OF CONSULTATION: 09/06/2017 REASON FOR CONSULTATION: Shortness of breath. HISTORY OF PRESENT ILLNESS: Mr. Hernandez is a pleasant 61-year-old white gentleman who comes to the [facility] for increased shortness of breath. He has a history of COPD and he is on chronic home O2 at 2 liters. He had been followed by Dr. Katz in the past for diastolic heart failure. He also has coron tia artery disease status post stenting to his LAD. He has got 2 stents there, placed in 2014. He c omes in for the last 1-2 weeks he has been noticing increased shortness of breath, slowly getting wor se. He also noticed increased leg swelling as well as abdominal distention, now slowly getting worse . He got to the point where he could not lay down on his back and he felt really short of breath wit h doing any activity. He decided to come in for evaluation. Here, he was admitted and started on IV Lasix. He is actually on Lasix drip right now at 5 mg per hour and has diuresed some and he already feels much better. He was discharged about 3 weeks ago from this facility for COPD exacerbation. PAST MEDICAL HISTORY: 1. Chronic diastolic heart failure. 2. Obstructive sleep apnea, on CPAP at home. 3. Chronic respiratory insufficiency, on home O2. 4. Chronic obstructive pulmonary disease. 5. Morbid obesity. 6. Type 2 diabetes. 7. Hypertension. 8. Hyperlipidemia. 9. Coronary artery disease, status post stenting to the LAD. 10. Pulmonary hypertension. 11. Peripheral neuropathy. 12. Chronic low back pain. PAST SURGICAL HISTORY: 1. Cardiac catheterization with stenting as above. 2. Sinus surgery. ALLERGIES: FLOMAX, causes nausea; LEVAQUIN, causes heart issues in the past. OUTPATIENT MEDICATIONS: Include, 1. Albuterol inhaler. 2. DuoNeb. 3. Advair. 4. Tessalon Perles. 5. Trazodone 100 mg at bedtime. 6. Tramadol p.r.n. 7. Levemir 42 units subcutaneously at bedtime. 8. Insulin Humalog KwikPen 14 units subcu before each meal. 9. Ferrous sulfate. 10. Singulair. 11. Hydralazine 25 mg p.o. b.i.d. 12. Glipizide 10 mg b.i.d. 13. Gabapentin 300 mg t.i.d. 14. Lasix 40 mg p.o. b.i.d. 15. Prozac 50 mg daily. 16. Potassium chloride 40 mEq t.i.d. 17. Protonix 40 mg a day. 18. Klonopin 1 mg at bedtime. 19. BuSpar 5 mg b.i.d. 20. Plavix 75 mg a day. 21. Benzonatate. 22. Atorvastatin 20 mg at bedtime. 23. Aspirin 81 daily. 24. Amlodipine 10 mg daily. 25. Theophylline 1 capsule b.i.d. 26. Aldactone 12.5 mg p.o. b.i.d. 27. Prednisone 20 mg q.a.m. SOCIAL HISTORY: Former smoker, quit in 1996. No alcohol, tobacco, or drugs currently. FAMILY HISTORY: Positive for heart disease in father, mother with a stroke, otherwise noncontributor y. REVIEW OF SYSTEMS: A 12-point review of systems was done and is all negative unless stated in the h istory of present illness. PHYSICAL EXAMINATION: VITAL SIGNS: Temperature 98.2, pulse 91, respiratory rate 18, satting 91% on 2 liters, blood pressur e 158/86. GENERAL: Awake, alert, oriented x3, in no distress. HEENT: Normocephalic and atraumatic. NECK: Supple, JVD cannot be assessed due to patient's body habitus. LUNGS: Have reduced breath sounds bilaterally. CARDIOVASCULAR: Distant heart sounds, but S1, S2, no S3 or S4, regular. ABDOMEN: Distended but nontender. He states it is better than yesterday. EXTREMITIES: 2+ edema. SKIN: Warm and dry. LABORATORY WORK: Reviewed. White count of 18,000 on arrival, down to 16; hemoglobin 14; hematocrit 44; platelet count 195. Coags were normal. ABG was unremarkable. Chemistry was reviewed. Creatini ne 1.7, GFR 39, glucose in the 300. Lactic acid was 2.6, troponin has been indeterminate range 0.03, 0.03, 0.03 and normal CK-MB. BNP was 26, lipase of 27. UA with 2+ bacteria and 500 glucose, 30 pro tein, no nitrites. EKG is reviewed. Chest x-ray was reviewed and shows slight blunting of the left costophrenic angle, which could indica te a small effusion, atherosclerotic changes of the aorta and chronic lung changes without focal infi ltrates. Lower extremity venous ultrasound shows no evidence of DVT. ASSESSMENT AND PLAN: 1. Acute on chronic diastolic heart failure. 2. Right ventricular dysfunction. 3. Pulmonary hypertension. 4. Chronic obstructive pulmonary disease. 5. Severe sleep apnea. 6. Coronary artery disease, stable. No acute coronary syndrome at this time. PLAN: Agreed with diuresis. I think he has accumulated fluid both in his abdomen and his lower extr emities. He is already feeling much better after diuresis and his creatinine has remained stable. W e will switch him to Lasix just 2 doses a day instead of his drip, but we will do this tomorrow. We will stop the drip sometime later this evening. We will put him on 60 IV b.i.d. starting tomorrow mo rning. Otherwise, he is most likely intravascularly depleted with most of the fluid stuck on the rig ht side of his heart and hopefully will be able to get it moved on to the other side and diurese. Thank you for letting us to participate in the care of your patient. We will follow.
[2017-09-06 17:34] LABS: Anion Gap 16 mmol/L (10-20); BUN (Urea Nitrogen) 24 mg/dL (8.4-25.7); Calc. Creatinine Clearance 97 mL/min (70-130); Carbon Dioxide 27 mmol/L (23-31); Chloride 100 mmol/L (98-107); Estimated GFR-MDRD 41; Glucose 314 mg/dL (80-115); Potassium 3.5 mmol/L (3.5-5.1); Sodium 139 mmol/L (136-145)
[2017-09-06] MEDS: HYDROcodone/Acetaminophen 5/325 mg Tablet PO PRN (18:01)
[2017-09-06] MEDS: Famotidine 20 MG TAB PO SCH (20:41)
[2017-09-06] MEDS: Insulin Detemir 100 UNITS/ML 15 UNITS in Pre-Filled Syringe SC SCH (20:41)
--- NOTE | 2017-09-06 21:22 | PDOC.PN ---
- Subjective Encounter Start Date: 09/06/17 Encounter Start Time: 11:00 Patient seen and examined. SOB improving. Dry cough. No fever. No overnight events - Objective Resuscitation Status: Resuscitation Status FULL:Full Resuscitation MAR Reviewed: Yes Vital Signs & Weight: Vital Signs (12 hours) Temp Pulse Resp BP Pulse Ox 09/06/17 20:00 98.9 F 102 H 18 139/78 95 09/06/17 18:51 99 09/06/17 18:49 99 16 95 09/06/17 16:00 98.2 F 95 20 167/103 H 94 L 09/06/17 14:16 88 16 96 09/06/17 12:00 97.5 F L 89 18 165/90 H 98 09/06/17 10:35 91 18 91 L Weight Weight 332 lb 4.8 oz I&O: 09/05/17 09/06/17 09/07/17 06:59 06:59 06:59 Intake Total 694.5 1030 Output Total 2425 2700 Balance -1730.5 -1670 Result Diagrams: 09/06/17 04:44 09/06/17 17:05 Additional Labs: Accuchecks 09/06/17 09/06/17 09/06/17 20:03 18:05 11:32 POC Glucose 236 H 282 H 307 H 09/06/17 09/06/17 09/05/17 05:39 02:12 21:15 POC Glucose 389 H 373 H 301 H EKG Reviewed by me: Yes (Tele SR) Phys Exam - Physical Examination Constitutional: NAD Respiratory: no wheezing, no rhonchi Scat rales at bases, No accessory muscle use, Trachea midline Cardiovascular: RRR, no rub no heaves/pulsations Gastrointestinal: soft, non-tender, no distention, positive bowel sounds Musculoskeletal: edema present (improving) Neurological: moves all 4 limbs Psychiatric: A&O x 3 Dx/Plan - Plan continue antibiotics, out of bed/ambulate, DVT proph w/lovenox, DVT proph w/SCDs IMPRESSION: 1. Acute on chronic diastolic heart failure. 2. Chronic obstructive pulmonary disease exacerbation. 3. Sepsis secondary to suspected pneumonia, questionable pneumococcal. 4. Hypertension. 5. Obstructive sleep apnea, on CPAP. 6. Morbid obesity BMI 52 7. Diabetes mellitus, type 2. 8. Chronic respiratory failure, on home oxygen. 9. Coronary artery disease, status post stent placement. 10. Diabetic neuropathy. 11. Chronic pain syndrome. 12. Hyponatremia. 13. Chronic kidney disease, stage 3. 14. Elevated troponins, probably secondary to congestive heart failure. PLAN: * Change IV Lasix drip to 60 mg BID in AM * Cardio following * AM labs * Add Potassium * Cont to monitor * Cardiac Rehab * Cont fluid rest Review of Systems - Review of Systems Cardiovascular: edema. negative: chest pain, palpitations, orthopnea, paroxysmal nocturnal dyspnea, light headedness, other Gastrointestinal: negative: Nausea, Vomiting, Abdominal Pain, Diarrhea, Constipation, Melena, Hematochezia - Medications/Allergies Allergies/Adverse Reactions: Allergies Allergy/AdvReac Type Severity Reaction Status Date / Time levofloxacin [From Levaquin] Allergy Verified 09/05/17 23:55 tamsulosin [From Flomax] Allergy Verified 09/05/17 23:55 Medications: Current Medications Acetaminophen (Tylenol) 650 mg PO Q4H PRN PRN Reason: Headache/Fever or Pain Hydrocodone Bitart/Acetaminophen (Bartow 5/325) 1 tab PO BIDPRN PRN PRN Reason: Pain Last Admin: 09/06/17 18:01 Dose: 1 tab Albuterol/Ipratropium (Duoneb) 3 ml NEB [id number] [facility] Last Admin: 09/06/17 18:49 Dose: 3 ml Albuterol/Ipratropium (Duoneb) 3 ml NEB [id number] PRN PRN Reason: SOB &/or Wheezing Aspirin (Ecotrin) 81 mg PO DAILY [facility] Last Admin: 09/06/17 08:09 Dose: 81 mg Bisacodyl (Dulcolax) 10 mg [place] Q24H PRN PRN Reason: Constipation Calcium Carbonate (Tums) 1,000 mg PO Q4H PRN PRN Reason: Heartburn or Indigestion Cefdinir (Omnicef) 300 mg PO DAILY [facility] Last Admin: 09/06/17 08:10 Dose: 300 mg Clopidogrel Bisulfate (Plavix) 75 mg PO QAM [facility] Last Admin: 09/06/17 08:10 Dose: 75 mg Dextrose/Water (Dextrose 50%) 25 gm SLOW IVP PRN PRN PRN Reason: Hypoglycemia Docusate Sodium (Colace) 100 mg PO BID [facility] Last Admin: 09/06/17 20:41 Dose: 100 mg Enoxaparin Sodium (Lovenox) 40 mg SC 0900 [facility] Last Admin: 09/06/17 08:10 Dose: 40 mg Famotidine (Pepcid) 20 mg PO QPM [facility] Last Admin: 09/06/17 20:41 Dose: 20 mg Furosemide (Lasix) 60 mg SLOW IVP 0600,1400 [facility] Glucagon (Glucagon) 1 mg IM PRN PRN PRN Reason: Hypoglycemia Dextrose/Water (D5w) 1,000 mls @ 0 mls/hr IV .Q0M PRN; As Directed PRN Reason: Hypoglycemia Insulin Detemir 15 units/ (Miscellaneous Medication) 0.15 mls @ 0 mls/hr SC HS [facility] Last Admin: 09/06/17 20:41 Dose: 0.15 mls Insulin Detemir 25 units/ (Miscellaneous Medication) 0.25 mls @ 0 mls/hr SC QAM [facility] Last Admin: 09/06/17 10:08 Dose: 0.25 mls Insulin Human Regular (Humulin R) 0 units SC .BEDTIME SLIDING SC PRN PRN Reason: Bedtime Correctional Scale Last Admin: 09/06/17 20:43 Dose: 2 unit Insulin Human Regular (Humulin R) 0 units SC .AGGRESSIVE SLIDING PRN PRN Reason: Aggressive Sliding Scale Last Admin: 09/06/17 18:04 Dose: 9 unit Nitroglycerin (Nitrostat) 0.4 mg PO Q5MIN PRN PRN Reason: Chest Pain Ondansetron HCl (Zofran Odt) 4 mg PO Q6H PRN PRN Reason: Nausea/Vomiting Ondansetron HCl (Zofran) 4 mg IVP Q6H PRN PRN Reason: Nausea/Vomiting Potassium Chloride (K-Dur) 20 meq PO TID-WM [facility] Potassium Chloride (K-Dur) 20 meq PO ONE [facility] Prednisone (Prednisone) 10 mg PO QAM-[facility] Senna (Senokot) 2 tab PO HSPRN PRN PRN Reason: Constipation Sodium Chloride (Flush - Normal Saline) 10 ml IVF Q12HR [facility] Last Admin: 09/06/17 20:42 Dose: 10 ml Sodium Chloride (Flush - Normal Saline) 10 ml IVF PRN PRN PRN Reason: Saline Flush
[2017-09-06] MEDS ORDERED: Potassium Chloride 20 MEQ TAB PO SCH (21:30)
[2017-09-07] MEDS: HYDROcodone/Acetaminophen 5/325 mg Tablet PO PRN ×2 (00:49→05:19)
[2017-09-07] MEDS: Furosemide 100 MG/10 ML VIAL SLOW IVP SCH ×2 (05:24→14:42)
[2017-09-07 05:35] LABS: Albumin 3.6 g/dL (3.4-4.8); Anion Gap 16 mmol/L (10-20); BUN (Urea Nitrogen) 23 mg/dL (8.4-25.7); BUN/Creatinine Ratio 15.75; Calc. Creatinine Clearance 112 mL/min (70-130); Calcium 8.5 mg/dL (7.8-10.44); Carbon Dioxide 22 mmol/L (23-31); Chloride 105 mmol/L (98-107); Estimated GFR-MDRD 49; Glucose 143 mg/dL (80-115); Magnesium 2.3 mg/dL (1.6-2.6); Phosphorus 3.3 mg/dL (2.3-4.7); Potassium 3.4 mmol/L (3.5-5.1); Sodium 140 mmol/L (136-145)
[2017-09-07] MEDS ORDERED: Furosemide 40 MG/4 ML VIAL SLOW IVP SCH (06:00)
[2017-09-07] MEDS ORDERED: predniSONE 20 MG TAB PO SCH ×2 (08:00→16:00)
[2017-09-07] MEDS ORDERED: Potassium Chloride 20 MEQ TAB PO SCH (08:00)
[2017-09-07] MEDS: Aspirin 81 mg Enteric Coated Tablet PO SCH (08:49)
[2017-09-07] MEDS: Clopidogrel Bisulfate 75 MG TAB PO SCH (08:49)
[2017-09-07] MEDS: Potassium Chloride 20 MEQ TAB PO SCH ×2 (08:49→16:37)
[2017-09-07] MEDS: Enoxaparin Sodium 40 MG/0.4 ML SYRINGE SC SCH (08:50)
[2017-09-07] MEDS: Docusate 100 MG CAP PO SCH ×2 (08:50→22:38)
[2017-09-07] MEDS: Cefdinir 300 MG CAP PO SCH (08:50)
[2017-09-07] MEDS: Insulin Detemir 100 UNITS/ML 25 UNITS in Pre-Filled Syringe 1 EACH SC SCH (10:16)
[2017-09-07] MEDS ORDERED: Dicyclomine 10 MG CAP PO PRN (10:36)
--- NOTE | 2017-09-07 11:18 | PDOC.CTH ---
Cardiology Progress Note - Subjective He is doing much better today. He has diuresed well. His breathing is much better and his abdomen feels much less bloated. - Objective Vital Signs Temp Pulse Resp BP Pulse Ox 09/07/17 08:00 97.4 F L 92 19 169/99 H 95 09/07/17 06:15 97.8 F 78 18 175/89 H 98 09/07/17 02:37 99 09/07/17 02:36 94 L 09/07/17 00:00 20 09/06/17 23:24 95 Weight 330 lb 1.6 oz 09/06/17 09/07/17 09/08/17 06:59 06:59 06:59 Intake Total 694.5 1546 Output Total 2425 3600 Balance -1730.5 -2053 - Physical Examination General/Neuro: alert & oriented x3, NAD Neck: no JVD present Lungs: CTA, unlabored respirations Heart: RRR Abdomen: NT/ND Extremities: + edema B (1+ improved.) - Telemetry Telemetry Rhythm: NSR - Labs Result Diagrams: 09/06/17 04:44 09/07/17 04:52 Troponin/CKMB CK-MB (CK-2) 1.6 ng/mL (0-6.6) 09/05/17 16:56 Troponin I 0.033 ng/mL (< 0.028) H 09/05/17 23:27 - Assessment/Plan 1. Acute on chronic diastolic heart failure 2. RV failure 3. COPD 4. Morbid obesity 5. Severe sleep apnea PLAN: - Continue IV diuresis. - Replace K - Creatinine continues to improve with diuresis. - Echocardiogram pending.
--- NOTE | 2017-09-07 11:26 | RAD ---
KUB: DATE: 09/07/17. PROVIDED CLINICAL HISTORY: Abdominal pain. FINDINGS: There is nonspecific conspicuous gaseous distention of transverse colon. The abdominal bowel gas pat tern is otherwise nonspecific. The visualized lung bases appear clear. The supine nature of this st udy limits sensitivity for detection of pneumoperitoneum. No suspicious calcifications are evident. IMPRESSION: Conspicuous gaseous distention of colon. If there is concern for obstruction, consider CT. POS: [facility]
[2017-09-07] MEDS: Calcium Carbonate + Vit D 1 TAB PO SCH (16:37)
[2017-09-07] MEDS: Insulin Regular 300 UNITS/3 ML VIAL SC PRN (16:37)
[2017-09-07] MEDS: traMADol HCl 50 MG TAB PO PRN ×2 (16:38→22:42)
--- NOTE | 2017-09-07 20:59 | PDOC.PN ---
- Subjective Encounter Start Date: 09/07/17 Encounter Start Time: 14:30 Patient seen and examined. Abd discomfort +, No N/V. No overnight events - Objective Resuscitation Status: Resuscitation Status FULL:Full Resuscitation MAR Reviewed: Yes Vital Signs & Weight: Vital Signs (12 hours) Temp Pulse Resp BP Pulse Ox 09/07/17 20:20 98.5 F 93 20 165/95 H 95 09/07/17 18:46 85 16 95 09/07/17 16:00 98.2 F 93 19 160/92 H 95 09/07/17 15:33 93 16 09/07/17 12:00 98.4 F 90 20 160/89 H 96 09/07/17 11:34 93 16 Weight Weight 330 lb 1.6 oz I&O: 09/06/17 09/07/17 09/08/17 06:59 06:59 06:59 Intake Total 694.5 1546 860 Output Total 2425 3600 3100 Balance -1730.5 -0742 -2920 Result Diagrams: 09/06/17 04:44 09/07/17 04:52 Additional Labs: Accuchecks 09/07/17 09/07/17 09/07/17 20:08 15:59 06:07 POC Glucose 219 H 183 H 156 H 09/07/17 09/06/17 02:27 20:03 POC Glucose 175 H 236 H Radiology Reviewed by me: Yes (KUB - ?ileus) EKG Reviewed by me: Yes (Tele SR) Phys Exam - Physical Examination Constitutional: NAD Respiratory: no wheezing, no rhonchi Symmetrical, no accessory muscle use Cardiovascular: RRR, no rub no heaves or pulsations Gastrointestinal: soft, positive bowel sounds mild gen tenderness, no rebound/guarding Musculoskeletal: edema present Neurological: moves all 4 limbs Psychiatric: A&O x 3 Dx/Plan - Plan mills catheter, out of bed/ambulate, DVT proph w/lovenox, DVT proph w/SCDs IMPRESSION: 1. Acute on chronic diastolic heart failure. improving 2. Chronic obstructive pulmonary disease exacerbation. 3. Sepsis secondary to suspected pneumonia, questionable pneumococcal. 4. Hypertension. 5. Obstructive sleep apnea, on CPAP. 6. New onset Abd pain ? Ileus 7. Diabetes mellitus, type 2. 8. Chronic respiratory failure, on home oxygen. 9. Coronary artery disease, status post stent placement. 10. Diabetic neuropathy. 11. Chronic pain syndrome. 12. Hyponatremia. 13. Chronic kidney disease, stage 3. 14. Elevated troponins, probably secondary to congestive heart failure./ Morbid obesity BMI 52 /hypokalemia PLAN: * KUB done * Consult GI * DC Hydrocodone * Repeat KUB in AM * Cont IV Lasix 60 mg BID * Cardio following * AM labs * Replace Potassium * Cont to monitor * Cardiac Rehab * Cont fluid rest * Confirm home meds - family to bring accurate list - Pt unsure if he takes Theophylline and other meds Review of Systems - Review of Systems Respiratory: SOB with Excertion. negative: Cough, Dry, Shortness of Breath, Hemoptysis, Pleuritic Pain, Sputum, Wheezing Cardiovascular: edema. negative: chest pain, palpitations, orthopnea, paroxysmal nocturnal dyspnea, light headedness - Medications/Allergies Allergies/Adverse Reactions: Allergies Allergy/AdvReac Type Severity Reaction Status Date / Time levofloxacin [From Levaquin] Allergy Verified 09/05/17 23:55 tamsulosin [From Flomax] Allergy Verified 09/05/17 23:55 Medications: Current Medications Acetaminophen (Tylenol) 650 mg PO Q4H PRN PRN Reason: Headache/Fever or Pain Albuterol/Ipratropium (Duoneb) 3 ml NEB [id number] Last Admin: 09/07/17 18:46 Dose: 3 ml Albuterol/Ipratropium (Duoneb) 3 ml NEB [id number] PRN PRN Reason: SOB &/or Wheezing Aspirin (Ecotrin) 81 mg PO DAILY [facility] Last Admin: 09/07/17 08:49 Dose: 81 mg Atorvastatin Calcium (Lipitor) [address] [facility] Bisacodyl (Dulcolax) 10 mg [place] Q24H PRN PRN Reason: Constipation Calcium Carbonate (Tums) 1,000 mg PO Q4H PRN PRN Reason: Heartburn or Indigestion Last Admin: 09/07/17 05:24 Dose: 1,000 mg Calcium/Vitamin D (Caltrate 600 + Vit D) 1 tab PO BID-[facility] Last Admin: 09/07/17 16:37 Dose: 1 tab Cefdinir (Omnicef) 300 mg PO DAILY [facility] Last Admin: 09/07/17 08:50 Dose: 300 mg Clopidogrel Bisulfate (Plavix) 75 mg PO QAM [facility] Last Admin: 09/07/17 08:49 Dose: 75 mg Dextrose/Water (Dextrose 50%) 25 gm SLOW IVP PRN PRN PRN Reason: Hypoglycemia Docusate Sodium (Colace) 100 mg PO BID [facility] Last Admin: 09/07/17 08:50 Dose: Not Given Enoxaparin Sodium (Lovenox) 40 mg SC 0900 [facility] Last Admin: 09/07/17 08:50 Dose: 40 mg Furosemide (Lasix) 60 mg SLOW IVP 0600,1400 [facility] Last Admin: 09/07/17 14:42 Dose: 60 mg Glucagon (Glucagon) 1 mg IM PRN PRN PRN Reason: Hypoglycemia Dextrose/Water (D5w) 1,000 mls @ 0 mls/hr IV .Q0M PRN; As Directed PRN Reason: Hypoglycemia Insulin Detemir 15 units/ (Miscellaneous Medication) 0.15 mls @ 0 mls/hr SC [facility] Last Admin: 09/06/17 20:41 Dose: 0.15 mls Insulin Detemir 25 units/ (Miscellaneous Medication) 0.25 mls @ 0 mls/[facility] Last Admin: 09/07/17 10:16 Dose: 0.25 mls Insulin Human Regular (Humulin R) 0 units SC .BEDTIME SLIDING SC PRN PRN Reason: Bedtime Correctional Scale Last Admin: 09/06/17 20:43 Dose: 2 unit Insulin Human Regular (Humulin R) 0 units SC .AGGRESSIVE SLIDING PRN PRN Reason: Aggressive Sliding Scale Last Admin: 09/07/17 16:37 Dose: 3 unit Nitroglycerin (Nitrostat) 0.4 mg PO Q5MIN PRN PRN Reason: Chest Pain Nystatin (Mycostatin Powder) 0 gm TOP BID [facility] Ondansetron HCl (Zofran Odt) 4 mg PO Q6H PRN PRN Reason: Nausea/Vomiting Ondansetron HCl (Zofran) 4 mg IVP Q6H PRN PRN Reason: Nausea/Vomiting Last Admin: 09/07/17 10:14 Dose: 4 mg Pantoprazole Sodium (Protonix) 40 mg PO DAILY [facility] Potassium Chloride (K-Dur) 40 meq PO BID-[facility] Last Admin: 09/07/17 16:37 Dose: 40 meq Prednisone (Prednisone) 20 mg PO QAM-[facility] Senna (Senokot) 2 tab PO HSPRN PRN PRN Reason: Constipation Sodium Chloride (Flush - Normal Saline) 10 ml IVF Q12HR [facility] Last Admin: 09/07/17 08:50 Dose: 10 ml Sodium Chloride (Flush - Normal Saline) 10 ml IVF PRN PRN PRN Reason: Saline Flush Tramadol HCl (Ultram) 50 mg PO Q4H PRN PRN Reason: Moderate Pain (4-6) Last Admin: 09/07/17 16:38 Dose: 50 mg
[2017-09-07] MEDS: Atorvastatin Calcium 20 MG TAB PO SCH (22:38)
[2017-09-07] MEDS: Insulin Detemir 100 UNITS/ML 15 UNITS in Pre-Filled Syringe SC SCH (22:39)
[2017-09-07] MEDS: Nystatin Powder 15 GM BOT TOP SCH (22:45)
[2017-09-07] MEDS ORDERED: Polyethylene Glycol 3350 17 GM Packet PO SCH (23:15)
[2017-09-07] MEDS ORDERED: clonazePAM 1 MG TAB PO SCH (23:45)
--- NOTE | 2017-09-08 01:07 | CON ---
DATE OF CONSULTATION: 09/07/2017 CHIEF COMPLAINT: Abdominal pain. HISTORY OF PRESENT ILLNESS: Mr. Hernandez is a 61-year-old man who presented to the hospital day before yesterday with shortness of breath and exacerbation of COPD. Yesterday, he developed increased abdom inal distention and tightness and diffuse pressure type pain. He has been having bowel movements, bu t they have been small. He develops the pain, he goes to the bathroom and has a small bowel movement and the pain resolves temporarily until the air pressure builds back up in his bowel again and he ag ain has have a bowel movement to feel better. He has had some form soft stools without blood in the stool. He has been taking MiraLax at home daily, which he states helps with this, but has been off h is MiraLax for the last couple of days. He did have some dry heaves this morning, but that has resol niecy. No ongoing nausea, vomiting. He had an x-ray that showed some distention of the colon with air . PAST MEDICAL HISTORY: Obstructive sleep apnea and chronic respiratory failure on home oxygen, chroni c diastolic heart failure, diabetes mellitus type 2, hypertension, dyslipidemia, coronary artery dise ase status post stent placement and [place], and morbid obesity. PAST SURGICAL HISTORY: Cardiac stent placement. FAMILY HISTORY: Negative for GI malignancy. SOCIAL HISTORY: Quit smoking in 1996. No drugs, no alcohol. ALLERGIES: FLOMAX and LEVAQUIN. CURRENT INPATIENT MEDICATIONS: Aspirin 81 mg daily, cefdinir, clopidogrel, calcium with vitamin D, d ocusate, enoxaparin, furosemide, insulin, pantoprazole. REVIEW OF SYSTEMS: Negative x10 systems reviewed except as stated in the history of present illness. PHYSICAL EXAMINATION: VITAL SIGNS: Temperature 98.5, pulse 93, blood pressure 165/95. GENERAL: He is in no acute distress, but he is tachypneic. HEENT: His eyes have no scleral icterus. Oropharynx is clear without lesions. NECK: No cervical or supraclavicular lymphadenopathy. LUNGS: Have little airflow to auscultation. HEART: Regular rate and rhythm. ABDOMEN: Distended and obese. His bowel sounds are active. He is minimally tender now. EXTREMITIES: 2+ pitting lower extremity edema. LABORATORY DATA: White blood cell count 6.5, hemoglobin 13.7, platelets 174. INR 1.0. Creatinine 1 .46, bilirubin 0.6, AST 13, ALT 16. IMPRESSION: 1. Chronic obstructive pulmonary disease exacerbation. 2. Obesity. 3. Sleep apnea. 4. Diastolic heart failure. 5. Abdominal distention. He might have a mild colonic ileus; however, he is passing bowel movements multiple times today and yesterday with temporary relief when he does pass the stools. He is only p assing small bowel movements with soft formed stool. He has been on MiraLax daily at home, which he states helps and he feels like he could tolerate this currently. He does not feel like he needs supp ositories at this time. RECOMMENDATIONS: We will restart the MiraLax tonight.
[2017-09-08] MEDS: Polyethylene Glycol 3350 17 GM Packet PO SCH ×2 (01:49→08:03)
[2017-09-08] MEDS: Furosemide 100 MG/10 ML VIAL SLOW IVP SCH ×2 (05:02→14:05)
[2017-09-08 05:20] LABS: #Lymphocytes 1.6 thou/uL (1.20-3.40); #Monocytes 0.8 thou/uL (0.11-0.59); #Neutrophils 6.9 thou/uL (1.40-6.50); %Basophils 0.1 % (0.0-1.0); %Eosinophils 0.5 % (0.0-10.0); %Lymphocytes 17.1 % (21.0-51.0); %Monocytes 8.6 % (0.0-10.0); %Neutrophils 73.7 % (42.0-75.0); Hemoglobin 13.7 g/dL (14.0-18.0); Mean Corpuscular HGB CONC 31.8 g/dL (32.0-36.0); Mean Corpuscular Hemoglobin 26.9 pg (27.0-31.0); Mean Corpuscular Volume 84.6 fl (80.0-94.0); Mean Platelet Volume 7.6 fL (7.4-10.4); Platelet Count 209 thou/uL (130-400); RBC Distribution Width 17.3 % (11.5-14.5); White Blood Cell (WBC) Count 9.4 thou/uL (4.8-10.8)
[2017-09-08 05:52] LABS: Albumin 3.4 g/dL (3.4-4.8); Anion Gap 16 mmol/L (10-20); BUN (Urea Nitrogen) 21 mg/dL (8.4-25.7); BUN/Creatinine Ratio 15.67; Calc. Creatinine Clearance 119 mL/min (70-130); Calcium 8.6 mg/dL (7.8-10.44); Carbon Dioxide 22 mmol/L (23-31); Chloride 105 mmol/L (98-107); Estimated GFR-MDRD 54; Glucose 153 mg/dL (80-115); Magnesium 2.3 mg/dL (1.6-2.6); Phosphorus 2.8 mg/dL (2.3-4.7); Potassium 3.4 mmol/L (3.5-5.1); Sodium 140 mmol/L (136-145)
[2017-09-08] MEDS: Calcium Carbonate + Vit D 1 TAB PO SCH ×2 (08:02→16:51)
[2017-09-08] MEDS: Cefdinir 300 MG CAP PO SCH (08:02)
[2017-09-08] MEDS: Potassium Chloride 20 MEQ TAB PO SCH ×3 (08:02→16:50)
[2017-09-08] MEDS: Docusate 100 MG CAP PO SCH ×2 (08:03→21:09)
[2017-09-08] MEDS: Aspirin 81 mg Enteric Coated Tablet PO SCH (08:03)
[2017-09-08] MEDS: Enoxaparin Sodium 40 MG/0.4 ML SYRINGE SC SCH (08:03)
[2017-09-08] MEDS: predniSONE 20 MG TAB PO SCH (08:03)
[2017-09-08] MEDS: Clopidogrel Bisulfate 75 MG TAB PO SCH (08:03)
[2017-09-08] MEDS: Nystatin Powder 15 GM BOT TOP SCH ×2 (08:04→21:10)
[2017-09-08] MEDS: traMADol HCl 50 MG TAB PO PRN ×3 (08:08→21:17)
[2017-09-08] MEDS: Insulin Detemir 100 UNITS/ML 25 UNITS in Pre-Filled Syringe 1 EACH SC SCH (10:40)
[2017-09-08] MEDS ORDERED: Losartan 25 MG TAB PO SCH (11:00)
--- NOTE | 2017-09-08 11:24 | RAD ---
ABDOMEN 2 VIEWS: HISTORY: A 61-year-old male for followup ileus. COMPARISON: 09/07/17. FINDINGS: There are bilateral pleural effusions and some vascular congestion. There is no evidence for free in traperitoneal air. There is some persistent mild colonic dilatation with air and fluid levels as wel l as some air and fluid levels in essentially nondilated small bowel. Overall appearance is stable f rom the prior study. IMPRESSION: Some persistent air fluid levels within borderline dilated colon and nondilated small bowel. No new findings. No free intraperitoneal air. POS: [facility]
[2017-09-08 11:38] LABS: Anion Gap 14 mmol/L (10-20); BUN (Urea Nitrogen) 22 mg/dL (8.4-25.7); Calc. Creatinine Clearance 104 mL/min (70-130); Calcium 8.7 mg/dL (7.8-10.44); Carbon Dioxide 29 mmol/L (23-31); Chloride 102 mmol/L (98-107); Estimated GFR-MDRD 46; Glucose 169 mg/dL (80-115); Potassium 3.4 mmol/L (3.5-5.1); Sodium 142 mmol/L (136-145)
--- NOTE | 2017-09-08 12:09 | EKG ---
Test Reason : SOB Blood Pressure : / mmHG Vent. Rate : 107 BPM Atrial Rate : 107 BPM P-R Int : 124 ms QRS Dur : 092 ms QT Int : 370 ms P-R-T Axes : 033 001 025 degrees QTc Int : 493 ms Sinus tachycardia with Premature ventricular complexes or Fusion complexes Possible Left atrial enlargement Cannot rule out Anterior infarct , age undetermined Abnormal ECG Confirmed by YEHUDA CROWDER, BALJIT ([id number]), development editor LATRICIA SWARTZ ([id number]) on 09/08/2017 12:09:16 PM Referred By: Confirmed By:BALJIT BLACKMAN MD
[2017-09-08] MEDS ORDERED: Benzonatate 100 MG CAP PO PRN (12:14)
[2017-09-08] MEDS: Gabapentin 300 MG CAP PO SCH ×2 (14:05→21:09)
--- NOTE | 2017-09-08 15:17 | PDOC.PN ---
- Subjective Encounter Start Date: 09/08/17 Encounter Start Time: 12:30 Patient seen and examined. No new complaints. No overnight events. SOB improving. No CP. - Objective Resuscitation Status: Resuscitation Status FULL:Full Resuscitation MAR Reviewed: Yes Vital Signs & Weight: Vital Signs (12 hours) Temp Pulse Resp BP Pulse Ox 09/08/17 12:00 139/96 H 09/08/17 11:33 97.8 F 84 20 98 09/08/17 11:29 86 16 09/08/17 08:00 97.9 F 84 19 09/08/17 07:58 95 09/08/17 07:57 84 16 09/08/17 07:55 97.9 F 84 19 142/90 H 95 09/08/17 05:08 98.3 F 85 20 165/94 H 93 L Weight Weight 325 lb 1.6 oz I&O: 09/07/17 09/08/17 09/09/17 06:59 06:59 06:59 Intake Total 1546 1360 Output Total 3600 5350 Balance -2385 -8352 Result Diagrams: 09/08/17 04:59 09/08/17 11:05 Additional Labs: Accuchecks 09/08/17 09/08/17 09/07/17 11:39 05:59 20:08 POC Glucose 158 H 128 H 219 H 09/07/17 09/07/17 15:59 11:48 POC Glucose 183 H 158 H Radiology Reviewed by me: Yes (KUB - no sig change) EKG Reviewed by me: Yes (Tele SR) Phys Exam - Physical Examination Constitutional: NAD Respiratory: no wheezing, no rhonchi Scat rales at bases Cardiovascular: RRR, no rub Gastrointestinal: soft, positive bowel sounds Musculoskeletal: edema present Neurological: moves all 4 limbs Dx/Plan - Plan DVT proph w/lovenox, DVT proph w/SCDs IMPRESSION: 1. Acute on chronic diastolic heart failure. on IV Lasix 2. Chronic obstructive pulmonary disease exacerbation. on Nebs/steroids/Atbx 3. Sepsis secondary to suspected pneumonia, questionable pneumococcal. 4. Hypertension. 5. Obstructive sleep apnea, on CPAP. 6. New onset Abd pain - due to mild Ileus 7. Diabetes mellitus, type 2. on sliding scale with Levemir 8. Chronic respiratory failure, on home oxygen. 9. Coronary artery disease, status post stent placement. 10. Diabetic neuropathy. 11. Chronic pain syndrome. 12. Hyponatremia. 13. Chronic kidney disease, stage 3. 14. Elevated troponins, probably secondary to congestive heart failure./ Morbid obesity BMI 52 /hypokalemia PLAN: * Losartan added today per Cardiology * Resume selected home mes * Cont IV Lasix 60 mg BID * Replace Potassium * AM labs * Cont to monitor * Cont fluid rest * BMP in AM * Cont Miralax Review of Systems - Review of Systems Respiratory: negative: Cough, Dry, Shortness of Breath, Hemoptysis, SOB with Excertion, Pleuritic Pain, Sputum, Wheezing Cardiovascular: negative: chest pain, palpitations, orthopnea, paroxysmal nocturnal dyspnea, edema, light headedness - Medications/Allergies Allergies/Adverse Reactions: Allergies Allergy/AdvReac Type Severity Reaction Status Date / Time levofloxacin [From Levaquin] Allergy Verified 09/05/17 23:55 tamsulosin [From Flomax] Allergy Verified 09/05/17 23:55 Medications: Current Medications Acetaminophen (Tylenol) 650 mg PO Q4H PRN PRN Reason: Headache/Fever or Pain Albuterol/Ipratropium (Duoneb) 3 ml NEB [id number] [facility] Last Admin: 09/08/17 11:29 Dose: 3 ml Albuterol/Ipratropium (Duoneb) 3 ml NEB [id number] PRN PRN Reason: SOB &/or Wheezing Aspirin (Ecotrin) 81 mg PO DAILY [facility] Last Admin: 09/08/17 08:03 Dose: 81 mg Atorvastatin Calcium (Lipitor) 20 mg PO HS [facility] Last Admin: 09/07/17 22:38 Dose: 20 mg Benzonatate (Tessalon) 100 mg PO TID PRN PRN Reason: Cough Bisacodyl (Dulcolax) 10 mg [place] Q24H PRN PRN Reason: Constipation Buspirone HCl (Buspar) 5 mg PO BID [facility] Calcium Carbonate (Tums) 1,000 mg PO Q4H PRN PRN Reason: Heartburn or Indigestion Last Admin: 09/07/17 05:24 Dose: 1,000 mg Calcium/Vitamin D (Caltrate 600 + Vit D) 1 tab PO BID-[facility] Last Admin: 09/08/17 08:02 Dose: 1 tab Cefdinir (Omnicef) 300 mg PO DAILY [facility] Last Admin: 09/08/17 08:02 Dose: 300 mg Clonazepam (Klonopin) 2 mg PO HS [facility] Clopidogrel Bisulfate (Plavix) 75 mg PO QAM [facility] Last Admin: 09/08/17 08:03 Dose: 75 mg Dextrose/Water (Dextrose 50%) 25 gm SLOW IVP PRN PRN PRN Reason: Hypoglycemia Docusate Sodium (Colace) 100 mg PO BID [facility] Last Admin: 09/08/17 08:03 Dose: Not Given Enoxaparin Sodium (Lovenox) 40 mg SC 0900 [facility] Last Admin: 09/08/17 08:03 Dose: 40 mg Fluoxetine HCl (Prozac) 50 mg PO DAILY [facility] Furosemide (Lasix) 60 mg SLOW IVP 0600,1400 [facility] Last Admin: 09/08/17 14:05 Dose: 60 mg Gabapentin (Neurontin) 300 mg PO TID [facility] Last Admin: 09/08/17 14:05 Dose: 300 mg Glipizide (Glucotrol) 5 mg PO BID-[facility] Glucagon (Glucagon) 1 mg IM PRN PRN PRN Reason: Hypoglycemia Dextrose/Water (D5w) 1,000 mls @ 0 mls/hr IV .Q0M PRN; As Directed PRN Reason: Hypoglycemia Insulin Detemir 15 units/ (Miscellaneous Medication) 0.15 mls @ 0 mls/hr SC [facility] Last Admin: 09/07/17 22:39 Dose: 0.15 mls Insulin Detemir 25 units/ (Miscellaneous Medication) 0.25 mls @ 0 mls/[facility] [place] [facility] Last Admin: 09/08/17 10:40 Dose: 0.25 mls Insulin Human Regular (Humulin R) 0 units SC .BEDTIME SLIDING SC PRN PRN Reason: Bedtime Correctional Scale Last Admin: 09/06/17 20:43 Dose: 2 unit Insulin Human Regular (Humulin R) 0 units SC .AGGRESSIVE SLIDING PRN PRN Reason: Aggressive Sliding Scale Last Admin: 09/07/17 16:37 Dose: 3 unit Losartan Potassium (Cozaar) 25 mg PO BID [facility] Mometasone Furoate/Formoterol Fumar (Dulera 200 Mcg/5 Mcg Inhaler) 2 puff INH BID-RT [facility] Montelukast Sodium (Singulair) 10 mg PO [facility] Nebivolol (Bystolic) 2.5 mg PO DAILY [facility] Nitroglycerin (Nitrostat) 0.4 mg PO Q5MIN PRN PRN Reason: Chest Pain Nystatin (Mycostatin Powder) 0 gm TOP BID [facility] Last Admin: 09/08/17 08:04 Dose: 1 applic Ondansetron HCl (Zofran Odt) 4 mg PO Q6H PRN PRN Reason: Nausea/Vomiting Ondansetron HCl (Zofran) 4 mg IVP Q6H PRN PRN Reason: Nausea/Vomiting Last Admin: 09/07/17 10:14 Dose: 4 mg Pantoprazole Sodium (Protonix) 40 mg PO DAILY [facility] Last Admin: 09/08/17 08:02 Dose: 40 mg Polyethylene Glycol (Miralax) 17 gm PO DAILY [facility] Last Admin: 09/08/17 08:03 Dose: 17 gm Potassium Chloride (K-Dur) 40 meq PO TID-WM [facility] Last Admin: 09/08/17 11:47 Dose: 40 meq Prednisone (Prednisone) 20 mg PO QAM-[facility] Last Admin: 09/08/17 08:03 Dose: 20 mg Senna (Senokot) 2 tab PO HSPRN PRN PRN Reason: Constipation Sodium Chloride (Flush - Normal Saline) 10 ml IVF Q12HR [facility] Last Admin: 09/08/17 08:04 Dose: 10 ml Sodium Chloride (Flush - Normal Saline) 10 ml IVF PRN PRN PRN Reason: Saline Flush Theophylline (Theophylline Sr) 200 mg PO BID [facility] Tramadol HCl (Ultram) 50 mg PO Q4H PRN PRN Reason: Moderate Pain (4-6) Last Admin: 09/08/17 14:10 Dose: 50 mg
--- NOTE | 2017-09-08 16:11 | PRG ---
DATE OF SERVICE: 09/08/2017 SUBJECTIVE: Mr. Hernandez feels better today. He took his MiraLax last night and he had a better bowel movement today. His abdomen feels less distended to him and he reports he is back tender insulation board to his base line. OBJECTIVE: VITAL SIGNS: Temperature 97.8, pulse 87, blood pressure 139/96. GENERAL: He is in no acute distress. He is awake and alert. LUNGS: Clear to auscultation bilaterally. HEART: Regular rate and rhythm. ABDOMEN: Still distended, but his bowel sounds are active and he is nontender. EXTREMITIES: Have lower extremity edema. IMPRESSION: Abdominal distention and chronic constipation. He might have had a mild ileus, triggere d by exacerbation of COPD. He seems to be doing better now that he is passing bowel movements more r egularly. RECOMMENDATIONS: 1. Continue MiraLax daily. 2. I will sign off for now. Please call if GI can be of assistance.
[2017-09-08] MEDS: glipiZIDE 5 MG TAB PO SCH (16:50)
[2017-09-08] MEDS: Mometasone/Formoterol 120 PUFF INHALER INH SCH (18:49)
[2017-09-08] MEDS ORDERED: glipiZIDE 10 MG TAB PO SCH (21:00)
[2017-09-08] MEDS: busPIRone HCl 5 MG TAB PO SCH (21:08)
[2017-09-08] MEDS: Insulin Detemir 100 UNITS/ML 15 UNITS in Pre-Filled Syringe SC SCH (21:09)
[2017-09-08] MEDS: Losartan 25 MG TAB PO SCH (21:09)
[2017-09-08] MEDS: Atorvastatin Calcium 20 MG TAB PO SCH (21:09)
[2017-09-08] MEDS: Montelukast Sodium 10 mg Tablet PO SCH (21:09)
[2017-09-08] MEDS: clonazePAM 1 MG TAB PO SCH (21:09)
[2017-09-09 05:36] LABS: Anion Gap 14 mmol/L (10-20); BUN (Urea Nitrogen) 22 mg/dL (8.4-25.7); Calc. Creatinine Clearance 114 mL/min (70-130); Calcium 8.8 mg/dL (7.8-10.44); Carbon Dioxide 24 mmol/L (23-31); Chloride 104 mmol/L (98-107); Estimated GFR-MDRD 52; Glucose 130 mg/dL (80-115); Potassium 3.3 mmol/L (3.5-5.1); Sodium 139 mmol/L (136-145)
[2017-09-09] MEDS: Furosemide 100 MG/10 ML VIAL SLOW IVP SCH ×2 (05:43→13:25)
[2017-09-09] MEDS: Mometasone/Formoterol 120 PUFF INHALER INH SCH ×2 (08:25→19:07)
[2017-09-09] MEDS: glipiZIDE 5 MG TAB PO SCH (08:59)
[2017-09-09] MEDS ORDERED: Metolazone 2.5 MG TAB PO SCH (10:00)
[2017-09-09] MEDS: Calcium Carbonate + Vit D 1 TAB PO SCH ×2 (10:42→16:06)
[2017-09-09] MEDS: Aspirin 81 mg Enteric Coated Tablet PO SCH (10:43)
[2017-09-09] MEDS: Potassium Chloride 20 MEQ TAB PO SCH ×3 (10:43→16:06)
[2017-09-09] MEDS: predniSONE 20 MG TAB PO SCH (10:43)
[2017-09-09] MEDS: Clopidogrel Bisulfate 75 MG TAB PO SCH (10:43)
[2017-09-09] MEDS: busPIRone HCl 5 MG TAB PO SCH ×2 (10:43→21:30)
[2017-09-09] MEDS: Cefdinir 300 MG CAP PO SCH (10:43)
[2017-09-09] MEDS: Docusate 100 MG CAP PO SCH ×2 (10:44→21:29)
[2017-09-09] MEDS: Enoxaparin Sodium 40 MG/0.4 ML SYRINGE SC SCH (10:44)
[2017-09-09] MEDS: Gabapentin 300 MG CAP PO SCH ×3 (10:45→21:30)
[2017-09-09] MEDS: Losartan 25 MG TAB PO SCH ×2 (10:45→21:29)
[2017-09-09] MEDS: FLUoxetine HCl 10 MG CAP PO SCH (10:45)
[2017-09-09] MEDS: Polyethylene Glycol 3350 17 GM Packet PO SCH (10:46)
[2017-09-09] MEDS: Nystatin Powder 15 GM BOT TOP SCH ×2 (10:46→21:31)
[2017-09-09] MEDS: Nebivolol HCl 2.5 MG TAB PO SCH (10:46)
[2017-09-09] MEDS: Insulin Detemir 100 UNITS/ML 25 UNITS in Pre-Filled Syringe 1 EACH SC SCH (11:03)
--- NOTE | 2017-09-09 18:22 | PDOC.PN ---
- Subjective Encounter Start Date: 09/09/17 Encounter Start Time: 09:30 Patient seen and examined. No new complaints. No overnight events. SOB improving - Objective Resuscitation Status: Resuscitation Status FULL:Full Resuscitation MAR Reviewed: Yes Vital Signs & Weight: Vital Signs (12 hours) Temp Pulse Resp BP Pulse Ox 09/09/17 16:02 97.9 F 77 19 153/84 H 93 L 09/09/17 15:06 89 16 09/09/17 13:00 97.9 F 81 18 154/90 H 94 L 09/09/17 11:23 81 16 09/09/17 09:10 97.9 F 81 18 132/60 93 L 09/09/17 08:25 71 16 09/09/17 08:16 96 09/09/17 08:15 71 16 Weight Weight 322 lb 3.2 oz I&O: 09/08/17 09/09/17 09/10/17 06:59 06:59 06:59 Intake Total 1360 1486 Output Total 5350 3300 Balance -3990 -1814 Result Diagrams: 09/08/17 04:59 09/09/17 04:41 Additional Labs: Accuchecks 09/09/17 09/09/17 09/09/17 17:35 11:05 06:03 POC Glucose 150 H 116 H 112 H 09/09/17 09/09/17 09/08/17 01:54 00:24 20:11 POC Glucose 123 H 71 117 H EKG Reviewed by me: Yes (Tele SR) Phys Exam - Physical Examination Constitutional: NAD Respiratory: no wheezing, no rhonchi Cardiovascular: RRR, no rub Gastrointestinal: soft, positive bowel sounds Musculoskeletal: edema present (improving) Neurological: moves all 4 limbs Dx/Plan - Plan continue antibiotics, DVT proph w/lovenox, DVT proph w/SCDs IMPRESSION: 1. Acute on chronic diastolic heart failure. on IV Lasix 2. Chronic obstructive pulmonary disease exacerbation. on Nebs/steroids/Atbx 3. Sepsis secondary to suspected pneumonia, questionable pneumococcal. 4. Hypertension. 5. Obstructive sleep apnea, on CPAP. 6. New onset Abd pain - due to mild Ileus. improved 7. Diabetes mellitus, type 2. on sliding scale with Levemir 8. Chronic respiratory failure, on home oxygen. 9. Coronary artery disease, status post stent placement. 10. Diabetic neuropathy. 11. Chronic pain syndrome. 12. Hyponatremia. 13. Chronic kidney disease, stage 3. 14. Elevated troponins, probably secondary to congestive heart failure./ Morbid obesity BMI 52 /hypokalemia PLAN: * Cont Losartan per Cardiology * Cont IV Lasix 60 mg BID with fluid rest * Replace Potassium * AM labs * Cont to monitor * BMP in AM * Cont Miralax * Cardiology following * DC Glipizide * Reduce PM Levemir to 10 units HS Review of Systems - Review of Systems Respiratory: SOB with Excertion. negative: Cough, Dry, Shortness of Breath, Hemoptysis, Pleuritic Pain, Sputum, Wheezing Cardiovascular: negative: chest pain, palpitations, orthopnea, paroxysmal nocturnal dyspnea, edema, light headedness, other Gastrointestinal: negative: Nausea, Vomiting, Abdominal Pain, Diarrhea, Constipation, Melena, Hematochezia - Medications/Allergies Allergies/Adverse Reactions: Allergies Allergy/AdvReac Type Severity Reaction Status Date / Time levofloxacin [From Levaquin] Allergy Verified 09/05/17 23:55 tamsulosin [From Flomax] Allergy Verified 09/05/17 23:55 Medications: Current Medications Acetaminophen (Tylenol) 650 mg PO Q4H PRN PRN Reason: Headache/Fever or Pain Albuterol/Ipratropium (Duoneb) 3 ml NEB [id number] [facility] Last Admin: 09/09/17 15:06 Dose: 3 ml Albuterol/Ipratropium (Duoneb) 3 ml NEB [id number] PRN PRN Reason: SOB &/or Wheezing Aspirin (Ecotrin) 81 mg PO DAILY [facility] Last Admin: 09/09/17 10:43 Dose: 81 mg Atorvastatin Calcium (Lipitor) 20 mg PO [facility] Last Admin: 09/08/17 21:09 Dose: 20 mg Benzonatate (Tessalon) 100 mg PO TID PRN PRN Reason: Cough Bisacodyl (Dulcolax) 10 mg [place] Q24H PRN PRN Reason: Constipation Buspirone HCl (Buspar) 5 mg PO BID [facility] Last Admin: 09/09/17 10:43 Dose: 5 mg Calcium Carbonate (Tums) 1,000 mg PO Q4H PRN PRN Reason: Heartburn or Indigestion Last Admin: 09/07/17 05:24 Dose: 1,000 mg Calcium/Vitamin D (Caltrate 600 + Vit D) 1 tab PO BID-[facility] Last Admin: 09/09/17 16:06 Dose: 1 tab Cefdinir (Omnicef) 300 mg PO DAILY [facility] Last Admin: 09/09/17 10:43 Dose: 300 mg Clonazepam (Klonopin) 2 mg PO [facility] Last Admin: 09/08/17 21:09 Dose: 2 mg Clopidogrel [facility]ate (Plavix) [facility] Last Admin: 09/09/17 10:43 Dose: 75 mg Dextrose/Water (Dextrose 50%) 25 gm SLOW IVP PRN PRN PRN Reason: Hypoglycemia Docusate Sodium (Colace) 100 mg PO BID [facility] Last Admin: 09/09/17 10:44 Dose: Not Given Enoxaparin Sodium (Lovenox) 40 mg SC 0900 [facility] Last Admin: 09/09/17 10:44 Dose: 40 mg Fluoxetine HCl (Prozac) 50 mg PO DAILY [facility] Last Admin: 09/09/17 10:45 Dose: 50 mg Furosemide (Lasix) 60 mg SLOW IVP 0600,1400 [facility] Last Admin: 09/09/17 13:25 Dose: 60 mg Gabapentin (Neurontin) 300 mg PO TID [facility] Last Admin: 09/09/17 16:06 Dose: 300 mg Glucagon (Glucagon) 1 mg IM PRN PRN PRN Reason: Hypoglycemia Dextrose/Water (D5w) 1,000 mls @ 0 mls/hr IV .Q0M PRN; As Directed PRN Reason: Hypoglycemia Insulin Detemir 25 units/ (Miscellaneous Medication) 0.25 mls @ 0 mls/hr SC [facility] Last Admin: 09/09/17 11:03 Dose: 0.25 mls Insulin Detemir 10 units/ (Miscellaneous Medication) 0.1 mls @ 0 mls/hr SC [facility] Insulin Human Regular (Humulin R) 0 units SC .BEDTIME SLIDING SC PRN PRN Reason: Bedtime Correctional Scale Last Admin: 09/06/17 20:43 Dose: 2 unit Insulin Human Regular (Humulin R) 0 units SC .AGGRESSIVE SLIDING PRN PRN Reason: Aggressive Sliding Scale Last Admin: 09/07/17 16:37 Dose: 3 unit Losartan Potassium (Cozaar) 25 mg PO BID [facility] Last Admin: 09/09/17 10:45 Dose: 25 mg Metolazone (Zaroxolyn) 2.5 mg PO 0830 [facility] Mometasone Furoate/Formoterol Fumar (Dulera 200 Mcg/5 Mcg Inhaler) 2 puff INH BID-RT [facility] Last Admin: 09/09/17 08:25 Dose: 2 puff Montelukast Sodium (Singulair) 10 mg PO HS [facility] Last Admin: 09/08/17 21:09 Dose: 10 mg Nebivolol (Bystolic) 2.5 mg PO DAILY [facility] Last Admin: 09/09/17 10:46 Dose: 2.5 mg Nitroglycerin (Nitrostat) 0.4 mg PO Q5MIN PRN PRN Reason: Chest Pain Nystatin (Mycostatin Powder) 0 gm TOP BID [facility] Last Admin: 09/09/17 10:46 Dose: 1 applic Ondansetron HCl (Zofran Odt) 4 mg PO Q6H PRN PRN Reason: Nausea/Vomiting Last Admin: 09/09/17 00:30 Dose: 4 mg Ondansetron HCl (Zofran) 4 mg IVP Q6H PRN PRN Reason: Nausea/Vomiting Last Admin: 09/07/17 10:14 Dose: 4 mg Pantoprazole Sodium (Protonix) 40 mg PO DAILY [facility] Last Admin: 09/09/17 10:46 Dose: 40 mg Polyethylene Glycol (Miralax) 17 gm PO DAILY [facility] Last Admin: 09/09/17 10:46 Dose: 17 gm Potassium Chloride (K-Dur) 40 meq PO TID-[facility] Last Admin: 09/09/17 16:06 Dose: 40 meq Prednisone (Prednisone) 20 mg PO QAM-[facility] Last Admin: 09/09/17 10:43 Dose: 20 mg Senna (Senokot) 2 tab PO HSPRN PRN PRN Reason: Constipation Sodium Chloride (Flush - Normal Saline) 10 ml IVF Q12HR [facility] Last Admin: 09/09/17 10:59 Dose: 10 ml Sodium Chloride (Flush - Normal Saline) 10 ml IVF PRN PRN PRN Reason: Saline Flush Last Admin: 09/09/17 05:43 Dose: 10 ml Theophylline (Theophylline Sr) 200 mg PO BID [facility] Last Admin: 09/09/17 10:46 Dose: 200 mg Tramadol HCl (Ultram) 50 mg PO Q4H PRN PRN Reason: Moderate Pain (4-6) Last Admin: 09/08/17 21:17 Dose: 50 mg
[2017-09-09] MEDS: Atorvastatin Calcium 20 MG TAB PO SCH (21:29)
[2017-09-09] MEDS: Montelukast Sodium 10 mg Tablet PO SCH (21:30)
[2017-09-09] MEDS: clonazePAM 1 MG TAB PO SCH (21:30)
[2017-09-09] MEDS: Insulin Detemir 100 UNITS/ML 10 UNITS in Pre-Filled Syringe 1 EACH SC SCH (21:35)
[2017-09-10 05:14] LABS: Hemoglobin 14.9 g/dL (14.0-18.0); Platelet Count 190 thou/uL (130-400)
[2017-09-10] MEDS: Furosemide 100 MG/10 ML VIAL SLOW IVP SCH (05:23)
[2017-09-10 05:48] LABS: Albumin 3.4 g/dL (3.4-4.8); Anion Gap 15 mmol/L (10-20); BUN (Urea Nitrogen) 21 mg/dL (8.4-25.7); BUN/Creatinine Ratio 14.09; Calc. Creatinine Clearance 106 mL/min (70-130); Carbon Dioxide 22 mmol/L (23-31); Chloride 102 mmol/L (98-107); Estimated GFR-MDRD 48; Glucose 156 mg/dL (80-115); Magnesium 2.3 mg/dL (1.6-2.6); Phosphorus 3.7 mg/dL (2.3-4.7); Potassium 3.2 mmol/L (3.5-5.1); Sodium 136 mmol/L (136-145)
[2017-09-10] MEDS: Mometasone/Formoterol 120 PUFF INHALER INH SCH ×2 (07:40→20:06)
[2017-09-10] MEDS ORDERED: Metolazone 2.5 MG TAB PO SCH ×2 (08:30→13:30)
[2017-09-10] MEDS: Polyethylene Glycol 3350 17 GM Packet PO SCH (09:06)
[2017-09-10] MEDS: Losartan 25 MG TAB PO SCH ×2 (09:07→21:42)
[2017-09-10] MEDS: Enoxaparin Sodium 40 MG/0.4 ML SYRINGE SC SCH (09:07)
[2017-09-10] MEDS: Nebivolol HCl 2.5 MG TAB PO SCH (09:08)
[2017-09-10] MEDS: Cefdinir 300 MG CAP PO SCH (09:08)
[2017-09-10] MEDS: Calcium Carbonate + Vit D 1 TAB PO SCH ×2 (09:09→17:00)
[2017-09-10] MEDS: Gabapentin 300 MG CAP PO SCH ×3 (09:09→21:41)
[2017-09-10] MEDS: FLUoxetine HCl 10 MG CAP PO SCH (09:09)
[2017-09-10] MEDS: busPIRone HCl 5 MG TAB PO SCH ×2 (09:09→21:41)
[2017-09-10] MEDS: predniSONE 20 MG TAB PO SCH (09:10)
[2017-09-10] MEDS: Nystatin Powder 15 GM BOT TOP SCH ×2 (09:10→21:44)
[2017-09-10] MEDS: Clopidogrel Bisulfate 75 MG TAB PO SCH (09:10)
[2017-09-10] MEDS: Docusate 100 MG CAP PO SCH ×2 (09:10→21:41)
[2017-09-10] MEDS: Aspirin 81 mg Enteric Coated Tablet PO SCH (09:10)
[2017-09-10] MEDS ORDERED: Spironolactone 25 MG TAB PO SCH (09:45)
[2017-09-10] MEDS: Potassium Chloride 20 MEQ TAB PO SCH ×4 (09:58→21:43)
[2017-09-10] MEDS: Insulin Detemir 100 UNITS/ML 25 UNITS in Pre-Filled Syringe 1 EACH SC SCH (13:21)
--- NOTE | 2017-09-10 15:59 | PDOC.PN ---
- Subjective Encounter Start Date: 09/10/17 Encounter Start Time: 13:00 Patient seen and examined. No new complaints. No overnight events. SOB improving. - Objective Resuscitation Status: Resuscitation Status FULL:Full Resuscitation MAR Reviewed: Yes Vital Signs & Weight: Vital Signs (12 hours) Temp Pulse Resp BP Pulse Ox 09/10/17 14:22 75 16 93 L 09/10/17 11:39 97.9 F 75 18 132/80 94 L 09/10/17 10:21 74 16 94 L 09/10/17 07:50 97.4 F L 63 16 134/78 96 09/10/17 07:40 82 18 94 L 09/10/17 04:10 92 L 09/10/17 04:00 97.3 F L 71 18 126/70 92 L Weight Weight 320 lb 9.6 oz I&O: 09/09/17 09/10/17 09/11/17 06:59 06:59 06:59 Intake Total 1486 266 Output Total 3300 6900 Balance -2868 -8027 Result Diagrams: 09/10/17 04:45 09/10/17 04:45 Additional Labs: Accuchecks 09/10/17 09/10/17 09/09/17 06:08 01:47 19:57 POC Glucose 148 H 163 H 242 H 09/09/17 17:35 POC Glucose 150 H Phys Exam - Physical Examination Constitutional: NAD Respiratory: no wheezing, no rhonchi Cardiovascular: RRR, no rub Gastrointestinal: soft, non-tender, positive bowel sounds Musculoskeletal: edema present (improving) Neurological: moves all 4 limbs Dx/Plan - Plan DVT proph w/lovenox IMPRESSION: 1. Acute on chronic diastolic heart failure. improving 2. Chronic obstructive pulmonary disease exacerbation. on Nebs/steroids/Atbx 3. Sepsis secondary to suspected pneumonia, questionable pneumococcal. 4. Hypertension. 5. Obstructive sleep apnea, on CPAP. 6. New onset Abd pain - due to mild Ileus. improved 7. Diabetes mellitus, type 2. on sliding scale with Levemir 8. Chronic respiratory failure, on home oxygen. 9. Coronary artery disease, status post stent placement. 10. Diabetic neuropathy. 11. Chronic pain syndrome. 12. Hyponatremia. 13. Chronic kidney disease, stage 3. 14. Elevated troponins, probably secondary to congestive heart failure./ Morbid obesity BMI 52 /hypokalemia PLAN: * Cont Losartan per Cardiology * Lasix changed to PO * Replace Potassium * AM labs * DC Metolazone * Cont to monitor * Cont Miralax * Cardiology following * DC in AM if stable Review of Systems - Review of Systems Respiratory: negative: Cough, Dry, Shortness of Breath, Hemoptysis, SOB with Excertion, Pleuritic Pain, Sputum, Wheezing Cardiovascular: negative: chest pain, palpitations, orthopnea, paroxysmal nocturnal dyspnea, edema, light headedness - Medications/Allergies Allergies/Adverse Reactions: Allergies Allergy/AdvReac Type Severity Reaction Status Date / Time levofloxacin [From Levaquin] Allergy Verified 09/05/17 23:55 tamsulosin [From Flomax] Allergy Verified 09/05/17 23:55 Medications: Current Medications Acetaminophen (Tylenol) 650 mg PO Q4H PRN PRN Reason: Headache/Fever or Pain Albuterol/Ipratropium (Duoneb) 3 ml NEB [id number] [facility] Last Admin: 09/10/17 14:22 Dose: 3 ml Albuterol/Ipratropium (Duoneb) 3 ml NEB [id number] PRN PRN Reason: SOB &/or Wheezing Aspirin (Ecotrin) 81 mg PO DAILY [facility] Last Admin: 09/10/17 09:10 Dose: 81 mg Atorvastatin Calcium (Lipitor) 20 mg PO [facility] Last Admin: 09/09/17 21:29 Dose: 20 mg Benzonatate (Tessalon) 100 mg PO TID PRN PRN Reason: Cough Bisacodyl (Dulcolax) 10 mg [place] Q24H PRN PRN Reason: Constipation Buspirone HCl (Buspar) 5 mg PO BID [facility] [place] Last Admin: 09/10/17 09:09 Dose: 5 mg Calcium Carbonate (Tums) 1,000 mg PO Q4H PRN PRN Reason: Heartburn or Indigestion Last Admin: 09/07/17 05:24 Dose: 1,000 mg Calcium/Vitamin D (Caltrate 600 + Vit D) 1 tab PO BID-[facility] Last Admin: 09/10/17 09:09 Dose: 1 tab Cefdinir (Omnicef) 300 mg PO DAILY [facility] Last Admin: 09/10/17 09:08 Dose: 300 mg Clonazepam (Klonopin) 2 mg PO [facility] Last Admin: 09/09/17 21:30 Dose: 2 mg [facility]opidogrel [facility] ([facility]ix) [facility] Last Admin: 09/10/17 09:10 Dose: 75 mg Dextrose/Water (Dextrose 50%) 25 gm SLOW IVP PRN PRN PRN Reason: Hypoglycemia Docusate Sodium (Colace) 100 mg PO BID [facility] Last Admin: 09/10/17 09:10 Dose: Not Given Enoxaparin Sodium (Lovenox) 40 mg SC 0900 [facility] [place] Last Admin: 09/10/17 09:07 Dose: 40 mg Fluoxetine HCl (Prozac) 50 mg PO DAILY [facility] [place] Last Admin: 09/10/17 09:09 Dose: 50 mg Furosemide (Lasix) 40 mg PO DAILY-AC [facility] [place] Gabapentin (Neurontin) 300 mg PO TID [facility] [place] Last Admin: 09/10/17 14:33 Dose: 300 mg Glucagon (Glucagon) 1 mg IM PRN PRN PRN Reason: Hypoglycemia Dextrose/Water (D5w) 1,000 mls @ 0 mls/hr IV .Q0M PRN; As Directed PRN Reason: Hypoglycemia Insulin Detemir 25 units/ (Miscellaneous Medication) 0.25 mls @ 0 mls/hr SC [facility] Last Admin: 09/10/17 13:21 Dose: 0.25 mls Insulin Detemir 10 units/ (Miscellaneous Medication) 0.1 mls @ 0 mls/hr SC [facility] Last Admin: 09/09/17 21:35 Dose: 0.1 mls Insulin Human Regular (Humulin R) 0 units SC .BEDTIME SLIDING SC PRN PRN Reason: Bedtime Correctional Scale Last Admin: 09/06/17 20:43 Dose: 2 unit Insulin Human Regular (Humulin R) 0 units SC .AGGRESSIVE SLIDING PRN PRN Reason: Aggressive Sliding Scale Last Admin: 09/07/17 16:37 Dose: 3 unit Losartan Potassium (Cozaar) 25 mg PO BID [facility] Last Admin: 09/10/17 09:07 Dose: 25 mg Mometasone Furoate/Formoterol Fumar (Dulera 200 Mcg/5 Mcg Inhaler) 2 puff INH BID-RT [facility] Last Admin: 09/10/17 07:40 Dose: 2 puff Montelukast Sodium (Singulair) 10 mg PO [facility] Last Admin: 09/09/17 21:30 Dose: 10 mg Nebivolol (Bystolic) 2.5 mg PO DAILY [facility] Last Admin: 09/10/17 09:08 Dose: 2.5 mg Nitroglycerin (Nitrostat) 0.4 mg PO Q5MIN PRN PRN Reason: Chest Pain Nystatin (Mycostatin Powder) 0 gm TOP BID [facility] [place] Last Admin: 09/10/17 09:10 Dose: 1 applic Ondansetron HCl (Zofran Odt) 4 mg PO Q6H PRN PRN Reason: Nausea/Vomiting Last Admin: 09/09/17 00:30 Dose: 4 mg Ondansetron HCl (Zofran) 4 mg IVP Q6H PRN PRN Reason: Nausea/Vomiting Last Admin: 09/07/17 10:14 Dose: 4 mg Pantoprazole Sodium (Protonix) 40 mg PO DAILY [facility] [place] Last Admin: 09/10/17 09:10 Dose: 40 mg Polyethylene Glycol (Miralax) 17 gm PO DAILY [facility] [place] Last Admin: 09/10/17 09:06 Dose: 17 gm Potassium Chloride (K-Dur) 40 meq PO QID-WM [facility] Last Admin: 09/10/17 11:43 Dose: 40 meq Prednisone (Prednisone) 20 mg PO QAM-WM [facility] Last Admin: 09/10/17 09:10 Dose: 20 mg Senna (Senokot) 2 tab PO HSPRN PRN PRN Reason: Constipation Sodium Chloride (Flush - Normal Saline) 10 ml IVF Q12HR [facility] [place] Last Admin: 09/10/17 09:10 Dose: 10 ml Sodium Chloride (Flush - Normal Saline) 10 ml IVF PRN PRN PRN Reason: Saline Flush Last Admin: 09/10/17 05:24 Dose: 10 ml Spironolactone (Aldactone) 12.5 mg PO QAM-WM [facility] [place] Theophylline (Theophylline Sr) 200 mg PO BID [facility] [place] Last Admin: 09/10/17 09:08 Dose: 200 mg Tramadol HCl (Ultram) 50 mg PO Q4H PRN PRN Reason: Moderate Pain (4-6) Last Admin: 09/08/17 21:17 Dose: 50 mg
--- NOTE | 2017-09-10 18:19 | PDOC.CTH ---
Cardiology Progress Note - Subjective He has diuresed a total of 16L so far. He feels great. - Objective Vital Signs Temp Pulse Resp BP Pulse Ox 09/10/17 16:56 98.4 F 92 20 151/82 H 93 L 09/10/17 14:22 75 16 93 L 09/10/17 11:39 97.9 F 75 18 132/80 94 L 09/10/17 10:21 74 16 94 L 09/10/17 07:50 97.4 F L 63 16 134/78 96 09/10/17 07:40 82 18 94 L Weight 320 lb 9.6 oz 09/09/17 09/10/17 09/11/17 06:59 06:59 06:59 Intake Total 1486 266 Output Total 3300 6900 Balance -9894 -6172 - Physical Examination General/Neuro: alert & oriented x3, NAD Neck: no JVD present Lungs: unlabored respirations Heart: RRR Abdomen: NT/ND Extremities: + edema B (no edema.) - Telemetry Telemetry Rhythm: NSR - Labs Result Diagrams: 09/10/17 04:45 09/10/17 04:45 Troponin/CKMB CK-MB (CK-2) 1.6 ng/mL (0-6.6) 09/05/17 16:56 Troponin I 0.033 ng/mL (< 0.028) H 09/05/17 23:27 - Assessment/Plan 1. Acute on chronic diastolic heart failure 2. RV failure 3. COPD 4. Morbid obesity 5. Severe sleep apnea PLAN: - Switch IV Lasix to PO. - Replace K - Will send home on a daily 40 mg PO Lasix AM dose scheduled. I gave instructions to him to weigh himself daily and if he gains 3 pounds or more in one day he will double up on the Lasix to twice a day for 2 or 3 days until he looses those extra pounds. - He may be discharged home at any time from cardiac perspective. - Continue aldactone, ARB, will increase nebivolol to 5 mg daily. - Follow up in the office in 1 month.
[2017-09-10] MEDS: Insulin Regular 300 UNITS/3 ML VIAL SC PRN (18:32)
[2017-09-10] MEDS: Atorvastatin Calcium 20 MG TAB PO SCH (21:41)
[2017-09-10] MEDS: clonazePAM 1 MG TAB PO SCH (21:41)
[2017-09-10] MEDS: Montelukast Sodium 10 mg Tablet PO SCH (21:42)
[2017-09-10] MEDS: Insulin Detemir 100 UNITS/ML 10 UNITS in Pre-Filled Syringe 1 EACH SC SCH (21:42)
[2017-09-11 05:49] LABS: Albumin 3.6 g/dL (3.4-4.8); Anion Gap 15 mmol/L (10-20); BUN (Urea Nitrogen) 25 mg/dL (8.4-25.7); BUN/Creatinine Ratio 14.45; Calc. Creatinine Clearance 91 mL/min (70-130); Calcium 9.9 mg/dL (7.8-10.44); Carbon Dioxide 24 mmol/L (23-31); Chloride 102 mmol/L (98-107); Estimated GFR-MDRD 40; Glucose 134 mg/dL (80-115); Magnesium 2.2 mg/dL (1.6-2.6); Phosphorus 3.8 mg/dL (2.3-4.7); Potassium 3.5 mmol/L (3.5-5.1); Sodium 137 mmol/L (136-145)
[2017-09-11] MEDS ORDERED: Furosemide 40 MG TAB PO SCH (07:30)
[2017-09-11] MEDS ORDERED: Spironolactone 25 MG TAB PO SCH (08:00)
[2017-09-11] MEDS: Mometasone/Formoterol 120 PUFF INHALER INH SCH (08:04)
[2017-09-11] MEDS: FLUoxetine HCl 10 MG CAP PO SCH (08:42)
[2017-09-11] MEDS: busPIRone HCl 5 MG TAB PO SCH (08:43)
[2017-09-11] MEDS: Potassium Chloride 20 MEQ TAB PO SCH ×2 (08:43→11:54)
[2017-09-11] MEDS: Aspirin 81 mg Enteric Coated Tablet PO SCH (08:43)
[2017-09-11] MEDS: Calcium Carbonate + Vit D 1 TAB PO SCH (08:44)
[2017-09-11] MEDS: Losartan 25 MG TAB PO SCH (08:44)
[2017-09-11] MEDS: Clopidogrel Bisulfate 75 MG TAB PO SCH (08:44)
[2017-09-11] MEDS: predniSONE 20 MG TAB PO SCH (08:44)
[2017-09-11] MEDS: Docusate 100 MG CAP PO SCH (08:44)
[2017-09-11] MEDS: Cefdinir 300 MG CAP PO SCH (08:44)
[2017-09-11] MEDS: Gabapentin 300 MG CAP PO SCH (08:45)
[2017-09-11] MEDS: Nystatin Powder 15 GM BOT TOP SCH (08:45)
[2017-09-11] MEDS: Polyethylene Glycol 3350 17 GM Packet PO SCH (08:46)
[2017-09-11] MEDS ORDERED: Nebivolol HCl 5 MG TAB PO SCH (09:00)
[2017-09-11] MEDS ORDERED: Sodium Chloride 0.9% 1,000 ML IV SCH (09:00)
[2017-09-11] MEDS: traMADol HCl 50 MG TAB PO PRN (09:14)
[2017-09-11 12:07] VITALS: BP 103/54; TEMP 98
[2017-09-11] MEDS: Insulin Detemir 100 UNITS/ML 25 UNITS in Pre-Filled Syringe 1 EACH SC SCH (12:25)
--- NOTE | 2017-09-11 12:50 | PDOC.CTH ---
Cardiology Progress Note - Subjective he is doing well. No chest bolanos, lightheadedness, syncope presyncope. - Objective Vital Signs Temp Pulse Resp BP Pulse Ox 09/11/17 11:25 98.0 F 68 20 103/54 L 93 L 09/11/17 10:27 64 16 95 09/11/17 08:40 96.6 F L 65 20 92 L 09/11/17 08:39 96.6 F L 65 20 119/60 92 L 09/11/17 08:06 60 16 09/11/17 04:38 93 L 09/11/17 04:00 97.6 F 71 18 142/65 H 93 L Weight 319 lb 11.2 oz 09/10/17 09/11/17 09/12/17 06:59 06:59 06:59 Intake Total 266 1440 Output Total 6900 2450 1250 Balance -6634 -1010 -1250 - Physical Examination General/Neuro: alert & oriented x3, NAD Neck: no JVD present Lungs: unlabored respirations Heart: RRR Abdomen: NT/ND Extremities: + edema B (trace) - Telemetry Telemetry Rhythm: NSR - Labs Result Diagrams: 09/10/17 04:45 09/11/17 04:58 Troponin/CKMB CK-MB (CK-2) 1.6 ng/mL (0-6.6) 09/05/17 16:56 Troponin I 0.033 ng/mL (< 0.028) H 09/05/17 23:27 - Assessment/Plan 1. Acute on chronic diastolic heart failure 2. RV failure 3. COPD 4. Morbid obesity 5. Severe sleep apnea PLAN: - Creatinine bumped up a little today. Will give back some fluid. 500 ml IV bolus. - Continue other meds. - May discharge home with BMP in 2-3 days. - Will follow up in the office in 1 month.
--- NOTE | 2017-09-11 19:22 | DIS ---
DATE OF DISCHARGE: 09/11/2017 DISCHARGE DISPOSITION: Home with [facility]. FOLLOWUP: Follow up with Dr. Kashmir Edwards in 1 week. ALLERGIES: The patient is allergic to LEVAQUIN and FLOMAX. The patient was seen and examined on the day of discharge. Denies any new complaints. No chest pain , shortness of breath, palpitations. His weight on the day of discharge is 319 pounds compared to 33 3 pounds on admission. DISCHARGE MEDICATIONS: 1. Omnicef 300 mg daily. 2. Lasix 40 mg daily. He was advised to take an extra dose if weight gain of 3 pounds. 3. Cozaar 25 mg b.i.d. 4. Aldactone dose has been reduced to 12.5 mg daily. 5. Bystolic 5 mg daily. 6. MiraLax daily. 7. Other home medications were resumed. INPATIENT CONSULTANTS: Cardiology, Dr. Bocanegra. BRIEF HOSPITAL COURSE: Patient is a 61-year-old male with chronic diastolic heart failure, obstructi ve sleep apnea on CPAP, chronic respiratory failure, on home oxygen, COPD on chronic steroids, presen ben to the hospital with worsening shortness of breath. Please note that patient had gained 11 pound s in the last 10 days or so. Please refer to the history and physical for further details. The patient was admitted to the hospital with a diagnosis of congestive heart failure exacerbation. He was started on Lasix drip that was changed to IV push. He showed good response with diuretics. H is weight on discharge is 319 pounds compared to 333 pounds on admission. He was extensively loan counselor ed on congestive heart failure as well as fluid restriction. He has been started on losartan as well as Bystolic. Aldactone dose has been reduced. Lasix dose has been reduced to once a day. He would need repeat labs later this week. His creatinine on the day of discharge was 1.73 compared 1.75 on admission. His lowest creatinine this admission was 1.34. He has been cleared by Cardiology for dis charge. There was a possible concern for pneumonia on admission for which he was placed on antibioti cs. He will continue Omnicef for another 3 days. FINAL DIAGNOSES: 1. Acute on chronic diastolic heart failure exacerbation, improved. 2. Chronic obstructive pulmonary disease exacerbation. 3. Sepsis with suspected pneumonia. Questionable pneumococcal. 4. Hypertension. 5. Obstructive sleep apnea on CPAP. 6. Abdominal pain on the second day of admission. KUB was consistent with mild ileus. MiraLax was recommended by Gastroenterology. 7. Diabetes mellitus type 2. 8. Chronic respiratory failure, on home oxygen. 9. Chronic obstructive pulmonary disease on chronic steroids at 20 mg daily per patient's. 10. Elevated troponins, probably secondary to congestive heart failure. 11. Morbid obesity with a BMI of 52. 12. Hypokalemia. 13. Chronic kidney disease stage 3. 14. Hyponatremia. 15. Chronic pain syndrome. 16. Diabetic neuropathy. 17. Chronic respiratory failure, on home oxygen. 18. Coronary artery disease, status post stent placement. Plan of care was discussed with the patient and the family in detail. They stated understanding.
== END 2017-09-11 14:08 | disposition home health service (06) | DRG 871 ==
LOC: ERS 16:39 → 2NO 18:10
PROVIDERS: ADMIT Internal Medicine; ATTEND Internal Medicine
DX: A40.3 Sepsis due to Streptococcus pneumoniae (principal); J13 Pneumonia due to Streptococcus pneumoniae; I50.33 Acute on chronic diastolic (congestive) heart failure; J96.10 Chronic respiratory failure, unspecified whether with hypoxia or hypercapnia; E11.22 Type 2 diabetes mellitus with diabetic chronic kidney disease; E11.40 Type 2 diabetes mellitus with diabetic neuropathy, unspecified; E66.01 Morbid (severe) obesity due to excess calories; I27.20 Pulmonary hypertension, unspecified; I13.0 Hypertensive heart and chronic kidney disease with heart failure and stage 1 through stage 4 chronic kidney disease, or unspecified chronic kidney disease; J44.1 Chronic obstructive pulmonary disease with (acute) exacerbation; K56.7 Ileus, unspecified; E87.1 Hypo-osmolality and hyponatremia; Z68.43 Body mass index [BMI] 50.0-59.9, adult; Z99.81 Dependence on supplemental oxygen; G47.33 Obstructive sleep apnea (adult) (pediatric); I25.10 Atherosclerotic heart disease of native coronary artery without angina pectoris; G89.4 Chronic pain syndrome; E87.6 Hypokalemia; N18.3 Chronic kidney disease, stage 3 (moderate); Z87.891 Personal history of nicotine dependence; M54.9 Dorsalgia, unspecified; Z95.5 Presence of coronary angioplasty implant and graft; K59.09 Other constipation
CPT/HCPCS: 36415; 36416; 71045; 74018; 74019; 80048; 80053; 80069; 81003; 81015; 82553; 82805; 83605; 83690; 83735; 83880; 84484; 85014; 85018; 85025; 85049; 85610; 85730; 87040; 93005; 93306; 93798; 93970; 94640; 94644; 94760; 96365; 96367; 96375; A4216; J0456; J0696; J1100; J1650; J1815; J1940; J2405; J3475; J7050; J7506; J7611; J7620; Q0162

== ENCOUNTER 2017-09-26 12:27 | Emergency (ER) | payer MEDICARE, OTHER ==
[2017-09-26 13:29] LABS: INR-International Normal Ratio 0.9; PTT 28.5 SEC (22.9-36.1); Prothrombin Time 12.6 SEC (12.0-14.7)
[2017-09-26 13:38] LABS: #Eosinphils 0.4 thou/uL (0.0-0.7); #Lymphocytes 2.2 thou/uL (1.20-3.40); #Monocytes 0.9 thou/uL (0.11-0.59); #Neutrophils 6.6 thou/uL (1.40-6.50); %Basophils 0.4 % (0.0-1.0); %Eosinophils 4.1 % (0.0-10.0); %Lymphocytes 21.2 % (21.0-51.0); %Monocytes 8.7 % (0.0-10.0); %Neutrophils 65.5 % (42.0-75.0); Hemoglobin 14.1 g/dL (14.0-18.0); Mean Corpuscular HGB CONC 32.1 g/dL (32.0-36.0); Mean Corpuscular Hemoglobin 27.1 pg (27.0-31.0); Mean Corpuscular Volume 84.4 fl (80.0-94.0); Mean Platelet Volume 8.5 fL (7.4-10.4); Platelet Count 178 thou/uL (130-400); RBC Distribution Width 16.8 % (11.5-14.5); Red Blood Cell (RBC) Count 5.19 mill/uL (4.70-6.10); White Blood Cell (WBC) Count 10.1 thou/uL (4.8-10.8)
[2017-09-26 13:44] LABS: ALT (SGPT) 18 U/L (8-55); AST (SGOT) 15 U/L (5-34); Albumin 3.7 g/dL (3.4-4.8); Alkaline Phosphatase 82 U/L (40-150); Anion Gap 15 mmol/L (10-20); BUN (Urea Nitrogen) 29 mg/dL (8.4-25.7); Bilirubin, Total 0.3 mg/dL (0.2-1.2); CK (CPK) 270 U/L (30-200); Calc. Creatinine Clearance 0 mL/min (70-130); Calcium 9.3 mg/dL (7.8-10.44); Carbon Dioxide 19 mmol/L (23-31); Chloride 107 mmol/L (98-107); Estimated GFR-MDRD 39; Globulin 2.5 g/dL (2.4-3.5); Glucose 209 mg/dL (80-115); Lipase 63 U/L (8-78); Potassium 3.9 mmol/L (3.5-5.1); Protein, Total 6.2 g/dL (5.8-8.1); Sodium 137 mmol/L (136-145)
[2017-09-26 13:50] LABS: CKMB 3.6 ng/mL (0-6.6); Troponin I 0.017 ng/mL (< 0.028)
--- NOTE | 2017-09-26 14:18 | RAD ---
PORTABLE CHEST ONE VIEW: Date: 09-26-17 Time: 1:46 p.m. History: Dyspnea. FINDINGS/IMPRESSION: Comparison is made with the exam of 09-05-17. The heart size is borderline. The lungs are well expanded with mild pulmonary vascular congestion. No focal areas of consolidation, pneumothorax, or large effusions are seen. POS: [facility]
[2017-09-26] MEDS ORDERED: Potassium Chloride 20 MEQ TAB ONE (15:28)
[2017-09-26] MEDS ORDERED: Furosemide 40 MG/4 ML VIAL ONE (15:28)
[2017-09-26] MEDS ORDERED: Furosemide 20 MG/2 ML VIAL ONE (15:28)
[2017-09-26] MEDS ORDERED: HYDROcodone/Acetaminophen 5/325 mg Tablet ONE (15:30)
[2017-09-26 15:56] LABS: Actual Bicarbonate (HCO3a) 22.8 mEq/L (22-26); Base Excess (BEa) -2.2 mEq/L (0 (+/-) 2.5); CO2 Tension 40.3 mmHg (35.0-45.0); pH, Arterial 7.37 (7.35-7.45)
[2017-09-26 15:57] LABS: ALV-art Gradient 54.865 (0-20); Analyzer IN Cardio ER; Calcium, Ionized 1.2 mmol/L (1.12-1.30); Hematocrit-ABG 44.1 % (42.0-52.0); Puncture Site RRA
[2017-09-26] MEDS ORDERED: predniSONE 20 MG TAB ONE (17:28)
[2017-09-26 18:05] LABS: Troponin I 0.025 ng/mL (< 0.028)
== END 2017-09-26 18:30 | disposition home or self-care (01) ==
LOC: ERS 12:27
DX: J44.1 Chronic obstructive pulmonary disease with (acute) exacerbation (principal); I25.2 Old myocardial infarction; E11.9 Type 2 diabetes mellitus without complications; I11.0 Hypertensive heart disease with heart failure; I50.9 Heart failure, unspecified; F32.9 Major depressive disorder, single episode, unspecified; F17.220 Nicotine dependence, chewing tobacco, uncomplicated
CPT/HCPCS: 36415; 71045; 80053; 82553; 82805; 83690; 83880; 84484; 85025; 85610; 85730; 93005; 94640; J1940; J7506; J7620

== ENCOUNTER 2017-10-15 10:09 | Inpatient (IN) | payer MEDICARE, MEDICAID ==
[2017-10-15 10:53] LABS: #Eosinphils 0.2 thou/uL (0.0-0.7); #Lymphocytes 1.7 thou/uL (1.20-3.40); #Monocytes 0.9 thou/uL (0.11-0.59); #Neutrophils 12.5 thou/uL (1.40-6.50); %Basophils 0.1 % (0.0-1.0); %Eosinophils 1.2 % (0.0-10.0); %Lymphocytes 10.8 % (21.0-51.0); %Monocytes 5.9 % (0.0-10.0); %Neutrophils 81.9 % (42.0-75.0); Hemoglobin 14.8 g/dL (14.0-18.0); Mean Corpuscular HGB CONC 32.2 g/dL (32.0-36.0); Mean Corpuscular Volume 86.9 fl (80.0-94.0); Mean Platelet Volume 7.4 fL (7.4-10.4); Platelet Count 231 thou/uL (130-400); RBC Distribution Width 16.7 % (11.5-14.5); Red Blood Cell (RBC) Count 5.28 mill/uL (4.70-6.10); White Blood Cell (WBC) Count 15.2 thou/uL (4.8-10.8)
--- NOTE | 2017-10-15 11:00 | RAD ---
AP VIEW CHEST: Date: 10/15/17 HISTORY: Chest pain. FINDINGS: Comparison made to previous exam of 09/26/17. AP view of chest demonstrates the lungs to demonstrate some mild pulmonary vascular congestion. Some areas of pleural scarring are seen in the left lung base. No significant interval change is seen. No acute intrathoracic abnormality is seen. No evidence of effusions seen. IMPRESSION: No evidence of acute intrathoracic abnormality seen. POS: [facility]
[2017-10-15 11:16] LABS: ALT (SGPT) 13 U/L (8-55); AST (SGOT) 12 U/L (5-34); Albumin 4.1 g/dL (3.4-4.8); Alkaline Phosphatase 63 U/L (40-150); Anion Gap 18 mmol/L (10-20); BUN (Urea Nitrogen) 32 mg/dL (8.4-25.7); Bilirubin, Total 0.6 mg/dL (0.2-1.2); CK (CPK) 161 U/L (30-200); Calc. Creatinine Clearance 0 mL/min (70-130); Calcium 10.4 mg/dL (7.8-10.44); Carbon Dioxide 28 mmol/L (23-31); Chloride 94 mmol/L (98-107); Estimated GFR-MDRD 30; Globulin 2.9 g/dL (2.4-3.5); Glucose 210 mg/dL (80-115); Sodium 137 mmol/L (136-145)
[2017-10-15 11:18] LABS: CKMB 1.8 ng/mL (0-6.6); Troponin I 0.014 ng/mL (< 0.028)
[2017-10-15 13:22] LABS: Bilirubin Negative (Negative); Blood, Urine Negative (Negative); Clarity CLEAR (Clear); Glucose, Urine (Dipstick) Negative (Negative); Leukocyte Negative (Negative); Nitrite Negative (Negative); Protein, Urine (Dipstick) Negative (Neg-Trace); Specific Gravity, Urine 1.012 (1.002-1.036); Urobilinogen 0.2 mg/dL (0.2-1.0); pH, Urine 7.5 (5.0-9.0)
[2017-10-15] MEDS ORDERED: Potassium Chloride 20 MEQ TAB PO SCH (15:30)
[2017-10-15] MEDS ORDERED: Azithromycin 500 MG in Sodium Chloride 0.9% 250 ML 250 ML IVPB SCH (16:00)
[2017-10-15] MEDS ORDERED: Dextrose 50% Abboject 50 ML SYRINGE SLOW IVP PRN (16:14)
[2017-10-15] MEDS ORDERED: Dextrose 5% in Water 1,000 ML IV PRN (16:14)
--- NOTE | 2017-10-15 16:55 | HP ---
PRIMARY CARE PHYSICIAN: Kashmir Edwards D.O. CHIEF COMPLAINT: Fall/weakness. HISTORY OF PRESENT ILLNESS: The patient is a very pleasant 61-year-old male with significant past me dical history, who presents to the hospital with complaints of fall and generalized weakness. The pa anival states that for the past 3 to 4 days, he has not been feeling well, has been having some upper respiratory symptoms including cough with mild sputum production and some congestion. The patient st ates that he has not been eating or drinking as much either. The patient states that he has been narciso ping an eye on his weight and has not gained any weight; however, has lost weight. The patient state s that this morning, he got up and was trying to get out of the chair to go to the bathroom when his legs gave out and he fell. The patient stated that he did mildly hit his right side of his forehead; however, stated that it was just a minor head injury. The patient denies any fevers or chills. The patient denies any diarrhea, abdominal pain, nausea, or vomiting. The patient states that he did mendoza ve abdominal pain about a week ago, which has resolved. PAST MEDICAL HISTORY: Significant for: 1. Chronic diastolic heart failure. 2. Obstructive sleep apnea, on CPAP. 3. Morbid obesity. 4. Diabetes type 2. 5. Hypertension. 6. Dyslipidemia. 7. Coronary artery disease, status post myocardial infarction, stent placement in 2016. 8. Pulmonary hypertension. 9. Chronic obstructive pulmonary disease. 10. Peripheral neuropathy. PAST SURGICAL HISTORY: Cardiac catheterization, sinus surgery, coronary stent placement in 2016. ALLERGIES: The patient is allergic to FLOMAX that causes nausea and LEVAQUIN that causes cardiac pro blems. SOCIAL HISTORY: The patient is a heavy former smoker, quit in 1996. Denies any alcohol or drug use. FAMILY HISTORY: Positive for father having heart disease and mother having stroke. REVIEW OF SYSTEMS: Except for the ones mentioned in the HPI, a 10-point review of system is negative : Constitutional: Weight loss or gain, ability to conduct usual activities. Skin: Rash, itching. Eyes: Double vision, pain. ENT/Mouth: Nose bleeding, neck stiffness, pain, tenderness. Cardiovascular: Palpitations, dyspnea on exertion, orthopnea. Respiratory: Shortness of breath, wheezing, cough, hemoptysis, fever or night sweats. Gastrointestinal: Poor appetite, abdominal pain, heartburn, nausea, vomiting, constipation, or diarr hea. Genitourinary: Urgency, frequency, dysuria, nocturia. Musculoskeletal: Pain, swelling. Neurologic/Psychiatric: Anxiety, depression. Allergy/Immunologic: Skin rash, bleeding tendency. HOME MEDICATIONS: This is per the record. He does not remember all his home medications, they are a s the following: Trazodone 100 mg p.o. at bedtime p.r.n., prednisone 20 mg daily, Klonopin 1 mg p.o. at bedtime, buspirone 5 mg b.i.d., Protonix 40 mg daily, Bystolic 5 mg daily, Singulair 10 mg p.o. at bedtime, Levemir 40 units subcu at bedtime, hydrocodone 1 tablet p.o. b.i.d. p.r.n., Fluticasone/ salmeterol 2 puffs inhalation q.12 hours, ferrous sulfate 325 daily, Prozac 50 mg daily, clopidogrel 75 mg daily, atorvastatin 20 mg at bedtime, aspirin 81 mg daily, tramadol 50 mg p.o. b.i.d. p.r.n., glipizide 10 mg p.o. b.i.d., theophylline 1 capsule p.o. b.i.d., spironolactone (Aldactone) 12.5 mg p .o. q.a.m., potassium chloride 40 mEq t.i.d., MiraLax 17 grams p.o. daily, Cozaar 25 mg b.i.d., DuoNe b 3 mL nebs q.i.d. p.r.n., gabapentin 300 mg t.i.d., Lasix 40 mg b.i.d., lispro insulin 14 units t.i. d., Topamax 100 mg p.o. b.i.d. p.r.n., and albuterol 1 puff q.i.d. p.r.n. PHYSICAL EXAMINATION: VITAL SIGNS: The patient is afebrile, temperature 98.7, respirations of 20, pulse 95, blood pressure is 100/68. The patient is currently on 3 liters of oxygen, satting 95%. GENERAL: The patient is awake, alert, oriented x3, does not appear in acute distress; however, appea rs to be congested. CARDIOVASCULAR: S1, S2 present. No murmurs, rubs or gallops. Rate is regular. RESPIRATORY: The patient has mild expiratory wheezing: Diminished breath sounds all over, mild crac kles in the bilateral lower bases. ABDOMEN: Obese. Bowel sounds are present x2. No pain upon palpation of the abdomen. EXTREMITIES: The patient has +1 lower extremity edema. He does have a small scab to his left loen. Warm to touch. Pedal pulses are present. LABORATORY DATA: WBCs are 15.2, hemoglobin 14.8, hematocrit 45.9, platelets of 231. Chemistry: Sod ium of 137, potassium of 3.0, chloride of 94, bicarbonate of 28, BUN of 32, creatinine of 2.2. Initi al lactic was 4 then was reduced to 2, magnesium is 1.8. LFTs are normal. Troponin is negative. BN P is 23.3. IMAGING: Chest x-ray on my interpretation, no focal area of possible infiltrate noted. ASSESSMENT AND PLAN: The patient is a very pleasant 61-year-old male with significant medical histor y, who presents to the hospital with fall. 1. Fall secondary to either infectious versus dehydration versus cardiac. In terms of the infectiou s process, UA is completely normal. The patient does have a little bit of which appears to be an upp er respiratory tract infection, could be mild bronchitis. We will check a procalcitonin level. Ches t x-ray does not show any acute lung processes. We will check influenza. Dehydration is definitely a possibility. The patient has been having this congestion for the past 3 to 4 days, has not been ea ting or drinking and has been taking all his medications which he is on several medications. The pat ient was hydrated with 1 liter in the ER. We will continue to monitor. We will not hydrate the mis ent anymore; however, we will just allow the patient to eat a diabetic diet. In terms of cardiac, tr oponins are negative. No significant EKG changes. The patient denies any chest pain. BNP is comple tely normal in the setting of an elevated creatinine. However, that could be abnormal given the mis ent's obesity. 2. Acute kidney injury. The patient's baseline creatinine of 1.6 to 1.8. We will continue to monit or. This is most likely secondary to dehydration. 3. Hypokalemia. We will replace potassium. 4. Mild elevated lactic acidosis at 4; however, was improved by 2. 5. History of chronic obstructive pulmonary disease. We will continue the patient's home medication . Continue DuoNebs. Also, based on the procalcitonin, we may consider antibiotic. 6. Sleep apnea. We will start the patient on a CPAP.
[2017-10-15] MEDS: Insulin Regular 300 UNITS/3 ML VIAL SC PRN (17:28)
[2017-10-15] MEDS ORDERED: FLU VACC QS2017-18 36 mo. & older 0.5 ML SYRINGE IM ONE (18:15)
[2017-10-15] MEDS: Mometasone/Formoterol 120 PUFF INHALER INH SCH (18:54)
[2017-10-15] MEDS ORDERED: Insulin Detemir 100 UNITS/ML 22 UNITS in Pre-Filled Syringe 1 EACH SC SCH (21:00)
[2017-10-15] MEDS ORDERED: traZODone HCl 50 MG TAB PO PRN (21:00)
[2017-10-15] MEDS: busPIRone HCl 10 MG TAB PO SCH (21:08)
[2017-10-15] MEDS: Atorvastatin Calcium 20 MG TAB PO SCH (21:08)
[2017-10-15] MEDS: Docusate 100 MG CAP PO SCH (21:09)
[2017-10-15] MEDS: clonazePAM 1 MG TAB PO SCH (21:09)
[2017-10-15] MEDS: Heparin 5,000 UNITS/ML VIAL SC SCH (21:10)
[2017-10-15] MEDS: PRE FILLED SC SCH (21:10)
[2017-10-15] MEDS: INSULIN DETEMIR SC SCH (21:10)
[2017-10-15] MEDS: Montelukast Sodium 10 mg Tablet PO SCH (21:11)
[2017-10-16 05:13] LABS: ALT (SGPT) 12 U/L (8-55); AST (SGOT) 11 U/L (5-34); Albumin 3.8 g/dL (3.4-4.8); Alkaline Phosphatase 56 U/L (40-150); Anion Gap 16 mmol/L (10-20); BUN (Urea Nitrogen) 34 mg/dL (8.4-25.7); Bilirubin, Total 0.5 mg/dL (0.2-1.2); Calc. Creatinine Clearance 69 mL/min (70-130); Calcium 9.7 mg/dL (7.8-10.44); Carbon Dioxide 32 mmol/L (23-31); Chloride 97 mmol/L (98-107); Estimated GFR-MDRD 30; Globulin 2.7 g/dL (2.4-3.5); Glucose 129 mg/dL (80-115); Protein, Total 6.5 g/dL (5.8-8.1); Sodium 142 mmol/L (136-145)
[2017-10-16 05:16] LABS: Mean Corpuscular HGB CONC 32.8 g/dL (32.0-36.0); Mean Corpuscular Hemoglobin 27.8 pg (27.0-31.0); Mean Corpuscular Volume 84.9 fl (80.0-94.0); Mean Platelet Volume 7.1 fL (7.4-10.4); Platelet Count 212 thou/uL (130-400); RBC Distribution Width 16.4 % (11.5-14.5); Red Blood Cell (RBC) Count 5.02 mill/uL (4.70-6.10); White Blood Cell (WBC) Count 11.8 thou/uL (4.8-10.8)
[2017-10-16 05:17] LABS: Band 3 % (5-11); Eosinophils 3 % (0-10); Lymphocytes 19 % (21-51); MDiff Complete? YES; Metamyelocyte 1 % (0-0); Monocytes 12 % (0-10); Neutrophil 57 % (42-75); PLT Morphology Comment Appears Adequate; RBC Morphology Normal; Reactive Lymphocytes 5 % (0-10)
[2017-10-16 05:18] LABS: Potassium 2.7 mmol/L (3.5-5.1)
[2017-10-16] MEDS: Mometasone/Formoterol 120 PUFF INHALER INH SCH ×2 (06:36→18:51)
[2017-10-16] MEDS ORDERED: Potassium Chloride 40 MEQ in Sodium Chloride 0.9% 250 ML 250 ML IVPB SCH (07:15)
[2017-10-16] MEDS ORDERED: Potassium Chloride 20 MEQ TAB PO SCH ×2 (07:15→18:45)
[2017-10-16] MEDS ORDERED: cefTRIAXone Sodium 1 MG in Syringe 0 ML IVPB SCH (09:00)
[2017-10-16] MEDS: FLUoxetine HCl 10 MG CAP PO SCH (09:04)
[2017-10-16] MEDS: predniSONE 20 MG TAB PO SCH (09:06)
[2017-10-16] MEDS: Nebivolol HCl 5 MG TAB PO SCH (09:06)
[2017-10-16] MEDS: Ferrous Sulfate 325 MG TAB PO SCH (09:06)
[2017-10-16] MEDS: Clopidogrel Bisulfate 75 MG TAB PO SCH (09:07)
[2017-10-16] MEDS: Aspirin 81 mg Enteric Coated Tablet PO SCH (09:07)
[2017-10-16] MEDS: busPIRone HCl 10 MG TAB PO SCH ×2 (09:07→20:25)
[2017-10-16] MEDS: Docusate 100 MG CAP PO SCH ×2 (09:08→20:25)
[2017-10-16] MEDS: Heparin 5,000 UNITS/ML VIAL SC SCH ×3 (09:08→20:26)
[2017-10-16] MEDS: HYDROcodone/Acetaminophen 5/325 mg Tablet PO PRN ×2 (10:44→23:49)
[2017-10-16 11:17] LABS: Anion Gap 17 mmol/L (10-20); BUN (Urea Nitrogen) 33 mg/dL (8.4-25.7); Calc. Creatinine Clearance 73 mL/min (70-130); Calcium 9.6 mg/dL (7.8-10.44); Carbon Dioxide 29 mmol/L (23-31); Chloride 97 mmol/L (98-107); Estimated GFR-MDRD 32; Glucose 206 mg/dL (80-115); Sodium 140 mmol/L (136-145)
[2017-10-16 11:23] LABS: Potassium 2.5 mmol/L (3.5-5.1)
[2017-10-16 11:58] VITALS: BMI 49.1
[2017-10-16] MEDS: Doxycycline 100 MG CAP PO SCH ×2 (12:57→20:26)
[2017-10-16] MEDS: Insulin Regular 300 UNITS/3 ML VIAL SC PRN ×2 (13:13→16:43)
[2017-10-16] MEDS: cefTRIAXone\\ROCEPHIN 1 GM, Syringe 0.4 ML in Sterile Water 9.6 ML SLOW IVP SCH (14:15)
[2017-10-16 18:03] LABS: Anion Gap 17 mmol/L (10-20); BUN (Urea Nitrogen) 34 mg/dL (8.4-25.7); Calc. Creatinine Clearance 72 mL/min (70-130); Calcium 9.7 mg/dL (7.8-10.44); Carbon Dioxide 29 mmol/L (23-31); Chloride 97 mmol/L (98-107); Estimated GFR-MDRD 31; Glucose 318 mg/dL (80-115); Sodium 140 mmol/L (136-145)
[2017-10-16 18:07] LABS: Potassium 2.8 mmol/L (3.5-5.1)
[2017-10-16] MEDS: Montelukast Sodium 10 mg Tablet PO SCH (20:25)
[2017-10-16] MEDS: clonazePAM 1 MG TAB PO SCH (20:25)
[2017-10-16] MEDS: Atorvastatin Calcium 20 MG TAB PO SCH (20:25)
[2017-10-16] MEDS: Furosemide 40 MG TAB PO SCH (20:25)
[2017-10-16] MEDS: PRE FILLED SC SCH (20:26)
[2017-10-16] MEDS: INSULIN DETEMIR SC SCH (20:26)
--- NOTE | 2017-10-16 21:10 | PDOC.PN ---
- Subjective Encounter Start Date: 10/16/17 Encounter Start Time: 11:00 Subjective: pt up in bed feels much better - Objective Resuscitation Status: Resuscitation Status FULL:Full Resuscitation Vital Signs & Weight: Vital Signs (12 hours) Temp Pulse Resp BP BP Pulse Ox Pulse Ox 10/16/17 20:00 98.3 F 72 18 170/91 H 92 L 10/16/17 18:12 72 16 92 L 10/16/17 16:16 97.8 F 78 20 157/90 H 92 L 10/16/17 12:26 91 L 10/16/17 12:00 97.6 F 80 22 H 156/92 H 2 L 10/16/17 10:17 153/81 H 93 L Pulse Ox 10/16/17 20:00 10/16/17 18:12 10/16/17 16:16 10/16/17 12:26 93 L 10/16/17 12:00 10/16/17 10:17 Weight Admit Weight 313 lb 15.012 oz Weight 313 lb 15.012 oz Result Diagrams: 10/16/17 04:33 10/17/17 17:02 Additional Labs: Accuchecks 10/16/17 10/16/17 10/16/17 20:26 16:17 11:49 POC Glucose 205 H 289 H 259 H 10/16/17 05:17 POC Glucose 112 H Phys Exam - Physical Examination HEENT: PERRLA Neck: no nodes, no JVD Respiratory: no wheezing, no rales mild rhonchi to upper lungs Cardiovascular: RRR, no significant murmur Gastrointestinal: soft, non-tender Musculoskeletal: no edema Neurological: non-focal Dx/Plan - Plan 1) generalized weakness 2) fall mechanical 3) copd on home oxygen 4) URI 5) dehydration 6) darren 7) hypokalemia plan: pt's weakness could be secondary to dehydration. pt's diuretics held will monitor. pt on abx, will continue duonebs for now. will monitor darren most likley prerenal. will replace K. * . Review of Systems - Review of Systems Eyes: negative: Pain, Vision Change, Conjunctivae Inflammation, Eyelid Inflammation, Redness, Other ENT: negative: Ear Pain, Ear Discharge, Nose Pain, Nose Discharge, Nose Congestion, Mouth Pain, Mouth Swelling, Throat Pain, Throat Swelling, Other Respiratory: negative: Cough, Dry, Shortness of Breath, Hemoptysis, SOB with Excertion, Pleuritic Pain, Sputum, Wheezing Cardiovascular: negative: chest pain, palpitations, orthopnea, paroxysmal nocturnal dyspnea, edema, light headedness, other - Medications/Allergies Allergies/Adverse Reactions: Allergies Allergy/AdvReac Type Severity Reaction Status Date / Time levofloxacin [From Levaquin] Allergy Verified 09/05/17 23:55 tamsulosin [From Flomax] Allergy Verified 09/05/17 23:55 Medications: Current Medications Acetaminophen (Tylenol) 650 mg PO Q6H PRN PRN Reason: Pain Last Admin: 10/17/17 16:00 Dose: 650 mg Hydrocodone Bitart/Acetaminophen ([place] 5/325) 1 tab PO BID PRN PRN Reason: Pain Last Admin: 10/17/17 21:31 Dose: 1 tab Albuterol/Ipratropium (Duoneb) 3 ml NEB [id number] [facility] Last Admin: 10/17/17 18:48 Dose: 3 ml Aspirin (Ecotrin) 81 mg PO DAILY [facility] Last Admin: 10/17/17 08:41 Dose: 81 mg Atorvastatin Calcium (Lipitor) 20 mg PO HS [facility] Last Admin: 10/17/17 20:06 Dose: 20 mg Buspirone HCl (Buspar) 5 mg PO BID [facility] Last Admin: 10/17/17 20:06 Dose: 5 mg Clonazepam (Klonopin) 1 mg PO HS [facility] Last Admin: 10/17/17 20:07 Dose: 1 mg Clopidogrel Bisulfate (Plavix) 75 mg PO DAILY [facility] Last Admin: 10/17/17 08:41 Dose: 75 mg Dextrose/Water (Dextrose 50%) 25 gm SLOW IVP PRN PRN PRN Reason: Hypoglycemia Docusate Sodium (Colace) 100 mg PO BID [facility] Last Admin: 10/17/17 20:07 Dose: Not Given Doxycycline Hyclate (Vibramycin) 100 mg PO BID [facility] Last Admin: 10/17/17 20:06 Dose: 100 mg Ferrous Sulfate (Feosol) 325 mg PO QA-[facility] Last Admin: 10/17/17 08:41 Dose: 325 mg Fluoxetine HCl (Prozac) 50 mg PO DAILY [facility] Last Admin: 10/17/17 11:17 Dose: 50 mg Furosemide (Lasix) 40 mg PO BID [facility] Last Admin: 10/17/17 20:08 Dose: 40 mg Glucagon (Glucagon) 1 mg IM PRN PRN PRN Reason: Hypoglycemia Guaifenesin (Mucinex) 600 mg PO Q12HR [facility] Last Admin: 10/17/17 20:06 Dose: 600 mg Heparin Sodium (Porcine) (Heparin) 5,000 units SC TID [facility] Last Admin: 10/17/17 20:08 Dose: Not Given Dextrose/Water (D5w) 1,000 mls @ 0 mls/hr IV .Q0M PRN; As Directed PRN Reason: Hypoglycemia Insulin Detemir 42 units/ (Miscellaneous Medication) 0.42 mls @ 0 mls/hr SC [facility] Last Admin: 10/17/17 20:08 Dose: 0.42 mls Ceftriaxone Sodium 1 gm/ (Syringe 0.4 ml/ Sterile Water) 10 mls @ 120 mls/hr SLOW IVP 1500 [facility] Last Admin: 10/17/17 15:26 Dose: 10 mls Insulin Human Regular (Humulin R) 0 units SC .MILD SLIDING SCALE PRN PRN Reason: Mild Correctional Scale Last Admin: 10/17/17 20:54 Dose: 3 unit Mometasone Furoate/Formoterol Fumar (Dulera 200 Mcg/5 Mcg Inhaler) 2 puff INH BID-RT [facility] Last Admin: 10/17/17 18:50 Dose: 2 puff Montelukast Sodium (Singulair) 10 mg PO [facility] Last Admin: 10/17/17 20:06 Dose: 10 mg Nebivolol (Bystolic) 5 mg PO DAILY [facility] Last Admin: 10/17/17 08:41 Dose: 5 mg Pantoprazole Sodium (Protonix) 40 mg PO 2100 [facility] Last Admin: 10/17/17 20:07 Dose: 40 mg Potassium Chloride (Klor-Con 10) 40 meq PO TID [facility] Last Admin: 10/17/17 20:08 Dose: 40 meq Prednisone (Prednisone) 20 mg PO QAM-WM [facility] Last Admin: 10/17/17 08:41 Dose: 20 mg Sodium Chloride (Flush - Normal Saline) 10 ml IVF Q12HR [facility] Last Admin: 10/17/17 20:09 Dose: 10 ml Sodium Chloride (Flush - Normal Saline) 10 ml IVF PRN PRN PRN Reason: Saline Flush Trazodone HCl (Desyrel) 100 mg PO HS PRN PRN Reason: Insomnia Zolpidem Tartrate (Ambien) 5 mg PO HSPRN PRN PRN Reason: Insomnia Last Admin: 10/17/17 21:31 Dose: 5 mg
[2017-10-16] MEDS ORDERED: Potassium Chloride 20 MEQ/100 ML PREMIX BAG IVPB SCH (22:00)
[2017-10-17] MEDS ORDERED: Potassium Chloride 20 MEQ TAB PO SCH (01:15)
[2017-10-17 08:14] LABS: Anion Gap 18 mmol/L (10-20); BUN (Urea Nitrogen) 29 mg/dL (8.4-25.7); Calc. Creatinine Clearance 82 mL/min (70-130); Calcium 9.6 mg/dL (7.8-10.44); Carbon Dioxide 27 mmol/L (23-31); Chloride 100 mmol/L (98-107); Estimated GFR-MDRD 37; Glucose 108 mg/dL (80-115); Sodium 142 mmol/L (136-145)
[2017-10-17 08:19] LABS: Potassium 2.6 mmol/L (3.5-5.1)
[2017-10-17] MEDS: HYDROcodone/Acetaminophen 5/325 mg Tablet PO PRN ×2 (08:40→21:31)
[2017-10-17] MEDS: busPIRone HCl 10 MG TAB PO SCH ×2 (08:41→20:06)
[2017-10-17] MEDS: Docusate 100 MG CAP PO SCH ×2 (08:41→20:07)
[2017-10-17] MEDS: predniSONE 20 MG TAB PO SCH (08:41)
[2017-10-17] MEDS: Clopidogrel Bisulfate 75 MG TAB PO SCH (08:41)
[2017-10-17] MEDS: Ferrous Sulfate 325 MG TAB PO SCH (08:41)
[2017-10-17] MEDS: Furosemide 40 MG TAB PO SCH ×2 (08:41→20:08)
[2017-10-17] MEDS: Aspirin 81 mg Enteric Coated Tablet PO SCH (08:41)
[2017-10-17] MEDS: Nebivolol HCl 5 MG TAB PO SCH (08:41)
[2017-10-17] MEDS: Doxycycline 100 MG CAP PO SCH ×2 (08:41→20:06)
[2017-10-17] MEDS: Heparin 5,000 UNITS/ML VIAL SC SCH ×3 (08:44→20:08)
[2017-10-17] MEDS: Mometasone/Formoterol 120 PUFF INHALER INH SCH ×2 (08:51→18:50)
[2017-10-17] MEDS ORDERED: Potassium Chloride 20 MEQ TAB PO ONE (09:15)
[2017-10-17] MEDS ORDERED: Potassium Chloride 10 MEQ TAB PO SCH (09:30)
[2017-10-17] MEDS: FLUoxetine HCl 10 MG CAP PO SCH (11:17)
[2017-10-17] MEDS: Potassium Chloride 10 MEQ TAB PO SCH ×2 (15:25→20:08)
[2017-10-17] MEDS: cefTRIAXone\\ROCEPHIN 1 GM, Syringe 0.4 ML in Sterile Water 9.6 ML SLOW IVP SCH (15:26)
[2017-10-17] MEDS ORDERED: Acetaminophen 325 MG TAB PO PRN (15:31)
[2017-10-17] MEDS ORDERED: Zolpidem Tartrate 5 MG TAB PO PRN (15:32)
[2017-10-17 17:43] LABS: Potassium 3.2 mmol/L (3.5-5.1)
[2017-10-17] MEDS: Insulin Regular 300 UNITS/3 ML VIAL SC PRN ×2 (18:24→20:54)
[2017-10-17] MEDS: Montelukast Sodium 10 mg Tablet PO SCH (20:06)
[2017-10-17] MEDS: guaiFENesin ER 600 MG TAB PO SCH (20:06)
[2017-10-17] MEDS: Atorvastatin Calcium 20 MG TAB PO SCH (20:06)
[2017-10-17] MEDS: clonazePAM 1 MG TAB PO SCH (20:07)
[2017-10-17] MEDS: PRE FILLED SC SCH (20:08)
[2017-10-17] MEDS: INSULIN DETEMIR SC SCH (20:08)
--- NOTE | 2017-10-17 21:43 | PDOC.PN ---
- Subjective Encounter Start Date: 10/17/17 Encounter Start Time: 13:00 Subjective: pt up in bed states he has not slept much last night - Objective Resuscitation Status: Resuscitation Status FULL:Full Resuscitation Vital Signs & Weight: Vital Signs (12 hours) Temp Pulse Resp BP Pulse Ox 10/17/17 20:13 98.0 F 74 22 H 199/102 H 95 10/17/17 20:00 98.0 F 74 22 H 95 10/17/17 18:50 67 20 97 10/17/17 18:48 67 20 96 10/17/17 16:00 97.8 F 71 22 H 122/79 95 10/17/17 12:12 98.0 F 77 22 H 174/78 H 94 L 10/17/17 10:54 88 24 H Weight Admit Weight 313 lb 15.012 oz Weight 313 lb 15.012 oz I&O: 10/16/17 10/17/17 10/18/17 06:59 06:59 06:59 Intake Total 530 Balance 530 Result Diagrams: 10/16/17 04:33 10/17/17 17:02 Additional Labs: Accuchecks 10/17/17 10/17/17 10/17/17 20:54 16:11 11:48 POC Glucose 250 H 281 H 173 H 10/17/17 05:34 POC Glucose 103 Phys Exam - Physical Examination Neck: no nodes Respiratory: wheezing present Cardiovascular: RRR, no significant murmur Gastrointestinal: soft, non-tender Musculoskeletal: edema present lower ext Neurological: non-focal Lymphatic: no nodes Dx/Plan - Plan * . 1) generalized weakness 2) fall mechanical 3) copd on home oxygen 4) URI 5) dehydration 6) darren 7) hypokalemia plan: pt's weakness could be secondary to dehydration. pt's diuretics held will monitor. pt on abx, will continue duonebs for now. will monitor darren most likley prerenal. will replace K. pt on home steroids, will add one additional dose of steroids iv. pt's k is still low will replace. * . Review of Systems - Review of Systems Eyes: negative: Pain, Vision Change, Conjunctivae Inflammation, Eyelid Inflammation, Redness, Other ENT: negative: Ear Pain, Ear Discharge, Nose Pain, Nose Discharge, Nose Congestion, Mouth Pain, Mouth Swelling, Throat Pain, Throat Swelling, Other Respiratory: negative: Cough, Dry, Shortness of Breath, Hemoptysis, SOB with Excertion, Pleuritic Pain, Sputum, Wheezing Cardiovascular: negative: chest pain, palpitations, orthopnea, paroxysmal nocturnal dyspnea, edema, light headedness, other - Medications/Allergies Allergies/Adverse Reactions: Allergies Allergy/AdvReac Type Severity Reaction Status Date / Time levofloxacin [From Levaquin] Allergy Verified 09/05/17 23:55 tamsulosin [From Flomax] Allergy Verified 09/05/17 23:55 Medications: Current Medications Acetaminophen (Tylenol) 650 mg PO Q6H PRN PRN Reason: Pain Last Admin: 10/17/17 16:00 Dose: 650 mg Hydrocodone Bitart/Acetaminophen ([place] 5/325) 1 tab PO BID PRN PRN Reason: Pain Last Admin: 10/17/17 21:31 Dose: 1 tab Albuterol/Ipratropium (Duoneb) 3 ml NEB [id number] [facility] Last Admin: 10/17/17 18:48 Dose: 3 ml Aspirin (Ecotrin) 81 mg PO DAILY [facility] Last Admin: 10/17/17 08:41 Dose: 81 mg Atorvastatin Calcium (Lipitor) 20 mg PO HS [facility] Last Admin: 10/17/17 20:06 Dose: 20 mg Buspirone HCl (Buspar) 5 mg PO BID [facility] Last Admin: 10/17/17 20:06 Dose: 5 mg Clonazepam (Klonopin) 1 mg PO HS [facility] Last Admin: 10/17/17 20:07 Dose: 1 mg Clopidogrel Bisulfate (Plavix) 75 mg PO DAILY [facility] Last Admin: 10/17/17 08:41 Dose: 75 mg Dextrose/Water (Dextrose 50%) 25 gm SLOW IVP PRN PRN PRN Reason: Hypoglycemia Docusate Sodium (Colace) 100 mg PO BID [facility] Last Admin: 10/17/17 20:07 Dose: Not Given Doxycycline Hyclate (Vibramycin) 100 mg PO BID [facility] Last Admin: 10/17/17 20:06 Dose: 100 mg Ferrous Sulfate (Feosol) 325 mg PO QA-[facility] Last Admin: 10/17/17 08:41 Dose: 325 mg Fluoxetine HCl (Prozac) 50 mg PO DAILY [facility] Last Admin: 10/17/17 11:17 Dose: 50 mg Furosemide (Lasix) 40 mg PO BID [facility] Last Admin: 10/17/17 20:08 Dose: 40 mg Glucagon (Glucagon) 1 mg IM PRN PRN PRN Reason: Hypoglycemia Guaifenesin (Mucinex) 600 mg PO Q12HR [facility] Last Admin: 10/17/17 20:06 Dose: 600 mg Heparin Sodium (Porcine) (Heparin) 5,000 units SC TID [facility] Last Admin: 10/17/17 20:08 Dose: Not Given Dextrose/Water (D5w) 1,000 mls @ 0 mls/hr IV .Q0M PRN; As Directed PRN Reason: Hypoglycemia Insulin Detemir 42 units/ (Miscellaneous Medication) 0.42 mls @ 0 mls/hr SC [facility] Last Admin: 10/17/17 20:08 Dose: 0.42 mls Ceftriaxone Sodium 1 gm/ (Syringe 0.4 ml/ Sterile Water) 10 mls @ 120 mls/hr SLOW IVP 1500 [facility] Last Admin: 10/17/17 15:26 Dose: 10 mls Insulin Human Regular (Humulin R) 0 units SC .MILD SLIDING SCALE PRN PRN Reason: Mild Correctional Scale Last Admin: 10/17/17 20:54 Dose: 3 unit Mometasone Furoate/Formoterol Fumar (Dulera 200 Mcg/5 Mcg Inhaler) 2 puff INH BID-RT [facility] Last Admin: 10/17/17 18:50 Dose: 2 puff Montelukast Sodium (Singulair) 10 mg PO HS [facility] Last Admin: 10/17/17 20:06 Dose: 10 mg Nebivolol (Bystolic) 5 mg PO DAILY [facility] Last Admin: 10/17/17 08:41 Dose: 5 mg Pantoprazole Sodium (Protonix) 40 mg PO 2100 [facility] Last Admin: 10/17/17 20:07 Dose: 40 mg Potassium Chloride (Klor-Con 10) 40 meq PO TID [facility] Last Admin: 10/17/17 20:08 Dose: 40 meq Prednisone (Prednisone) 20 mg PO QAM-WM [facility] Last Admin: 10/17/17 08:41 Dose: 20 mg Sodium Chloride (Flush - Normal Saline) 10 ml IVF Q12HR [facility] Last Admin: 10/17/17 20:09 Dose: 10 ml Sodium Chloride (Flush - Normal Saline) 10 ml IVF PRN PRN PRN Reason: Saline Flush Trazodone HCl (Desyrel) 100 mg PO HS PRN PRN Reason: Insomnia Zolpidem Tartrate (Ambien) 5 mg PO HSPRN PRN PRN Reason: Insomnia Last Admin: 10/17/17 21:31 Dose: 5 mg
[2017-10-18 05:14] LABS: #Lymphocytes 1.4 thou/uL (1.20-3.40); #Monocytes 0.7 thou/uL (0.11-0.59); %Eosinophils 0.3 % (0.0-10.0); %Lymphocytes 15.5 % (21.0-51.0); %Monocytes 7.3 % (0.0-10.0); Hemoglobin 14.5 g/dL (14.0-18.0); Mean Corpuscular HGB CONC 32.4 g/dL (32.0-36.0); Mean Corpuscular Hemoglobin 27.5 pg (27.0-31.0); Mean Corpuscular Volume 84.6 fl (80.0-94.0); Mean Platelet Volume 7.1 fL (7.4-10.4); Platelet Count 234 thou/uL (130-400); RBC Distribution Width 16.2 % (11.5-14.5); Red Blood Cell (RBC) Count 5.28 mill/uL (4.70-6.10); White Blood Cell (WBC) Count 9.1 thou/uL (4.8-10.8)
[2017-10-18 05:32] LABS: Anion Gap 18 mmol/L (10-20); BUN (Urea Nitrogen) 31 mg/dL (8.4-25.7); Calc. Creatinine Clearance 81 mL/min (70-130); Calcium 9.2 mg/dL (7.8-10.44); Carbon Dioxide 24 mmol/L (23-31); Chloride 101 mmol/L (98-107); Estimated GFR-MDRD 36; Glucose 222 mg/dL (80-115); Magnesium 2.1 mg/dL (1.6-2.6); Sodium 140 mmol/L (136-145)
[2017-10-18 05:54] VITALS: TEMP 97.9
[2017-10-18 06:44] LABS: Band 6 % (5-11); Hemoglobin 14.7 g/dL (14.0-18.0); Lymphocytes 8 % (21-51); MDiff Complete? YES; Mean Corpuscular Hemoglobin 27.9 pg (27.0-31.0); Mean Corpuscular Volume 84.7 fl (80.0-94.0); Mean Platelet Volume 7.1 fL (7.4-10.4); Monocytes 9 % (0-10); Neutrophil 77 % (42-75); Platelet Count 232 thou/uL (130-400); RBC Distribution Width 16.1 % (11.5-14.5); Red Blood Cell (RBC) Count 5.27 mill/uL (4.70-6.10); White Blood Cell (WBC) Count 9.2 thou/uL (4.8-10.8)
[2017-10-18] MEDS ORDERED: Potassium Chloride 20 MEQ TAB PO SCH (09:00)
[2017-10-18] MEDS: HYDROcodone/Acetaminophen 5/325 mg Tablet PO PRN (09:05)
[2017-10-18] MEDS: Potassium Chloride 10 MEQ TAB PO SCH ×2 (09:06→14:00)
[2017-10-18] MEDS: predniSONE 20 MG TAB PO SCH (09:07)
[2017-10-18] MEDS: Furosemide 40 MG TAB PO SCH (09:07)
[2017-10-18] MEDS: Clopidogrel Bisulfate 75 MG TAB PO SCH (09:07)
[2017-10-18] MEDS: Ferrous Sulfate 325 MG TAB PO SCH (09:07)
[2017-10-18] MEDS: Nebivolol HCl 5 MG TAB PO SCH (09:07)
[2017-10-18] MEDS: busPIRone HCl 10 MG TAB PO SCH (09:07)
[2017-10-18] MEDS: guaiFENesin ER 600 MG TAB PO SCH (09:07)
[2017-10-18] MEDS: Aspirin 81 mg Enteric Coated Tablet PO SCH (09:07)
[2017-10-18] MEDS: FLUoxetine HCl 10 MG CAP PO SCH (09:08)
[2017-10-18] MEDS: Docusate 100 MG CAP PO SCH (09:08)
[2017-10-18] MEDS: Doxycycline 100 MG CAP PO SCH (09:08)
[2017-10-18] MEDS: Heparin 5,000 UNITS/ML VIAL SC SCH ×2 (09:09→14:02)
[2017-10-18] MEDS: Mometasone/Formoterol 120 PUFF INHALER INH SCH (09:26)
[2017-10-18 09:31] VITALS: BP 155/98
[2017-10-18] MEDS: cefTRIAXone\\ROCEPHIN 1 GM, Syringe 0.4 ML in Sterile Water 9.6 ML SLOW IVP SCH (14:00)
--- NOTE | 2017-10-18 14:53 | PDOC.PN ---
- Subjective Encounter Start Date: 10/18/17 Encounter Start Time: 11:30 Subjective: pt up in bed no complains - Objective Resuscitation Status: Resuscitation Status FULL:Full Resuscitation Vital Signs & Weight: Vital Signs (12 hours) Temp Pulse Resp BP Pulse Ox 10/18/17 09:26 71 18 95 10/18/17 09:24 71 18 95 10/18/17 08:00 97.9 F 71 18 155/98 H 94 L 10/18/17 05:53 97.9 F 64 20 169/74 H 98 Weight Admit Weight 313 lb 15.012 oz Weight 313 lb 15.012 oz I&O: 10/17/17 10/18/17 10/19/17 06:59 06:59 06:59 Intake Total 530 Balance 530 Result Diagrams: 10/18/17 04:08 10/18/17 04:08 Additional Labs: Accuchecks 10/18/17 10/17/17 10/17/17 10:52 20:54 16:11 POC Glucose 144 H 250 H 281 H Phys Exam - Physical Examination HEENT: PERRLA Neck: no nodes, no JVD Respiratory: no wheezing, no rales Cardiovascular: RRR, no significant murmur Gastrointestinal: soft, non-tender Musculoskeletal: no edema Dx/Plan - Plan * . 1) generalized weakness 2) fall mechanical 3) copd on home oxygen 4) URI 5) dehydration 6) darren 7) hypokalemia plan: pt's weakness could be secondary to dehydration. pt's diuretics held will monitor. pt on abx, will continue duonebs for now. will monitor darren most likley prerenal. will replace K. pt on home steroids, will add one additional dose of steroids iv. pt's k is still low will replace. will discharge pt home today
--- NOTE | 2017-10-18 19:07 | DIS ---
DATE OF ADMISSION: 10/15/2017 DATE OF DISCHARGE: 10/18/2017 DISCHARGE DIAGNOSES: 1. Generalized weakness. 2. Possible upper respiratory tract infection. 3. Acute kidney injury. 4. Hypokalemia. HISTORY OF PRESENT ILLNESS: The patient is a very pleasant 61-year-old male who initially presented to the hospital with generalized weakness. The patient at that time was found to have acute kidney i njury and also possible signs of upper respiratory tract infection. The patient was given some gentl e hydration. Creatinine continued to improve throughout the hospital stay. The patient does have a history of chronic kidney disease. This was acute on chronic kidney disease. The patient's creatini ne on discharge was 1.9. This hospital stay was complicated with hypokalemia. Patient normally take s 40 mEq of potassium 3 times a day. The patient was given significant amount of potassium and potas sium was 3.0 on discharge. Patient was advised to continue taking his home potassium. He was also a sked to eat a banana daily. Also, he will be given a slip to check his BMP next week. Patient jonathan bustos was started on some IV antibiotics, which was changed to oral antibiotics for possible upper res piratory tract infection. DISCHARGE MEDICATIONS: Are the following: Trazodone 100 mg p.o. at bedtime, prednisone 20 mg daily, Klonopin 1 p.o. at bedtime, Protonix 40 mg daily, Bystolic 5 mg daily, Tussionex 100 mg p.o. t.i.d. p.r.n., atorvastatin 20 mg at bedtime, Lasix 40 mg p.o. b.i.d., Levemir 45 units at bedtime, ferrous sulfate 325 p.o. daily, tramadol 50 b.i.d. p.r.n., glipizide 10 mg p.o. b.i.d., Singulair 10 mg p.o. at bedtime, DuoNebs q.i.d. p.r.n., Neurontin 300 mg p.o. t.i.d., Plavix 75 mg p.o. daily, Humalog 4 0 units t.i.d., Advair two puffs q.12 h., aspirin 81 mg daily, buspirone 5 mg p.o. b.i.d., potassium chloride 40 mEq p.o. t.i.d., fluoxetine 50 mg p.o. daily, theophylline 1 cap p.o. b.i.d. spironolact one 12.5 mg p.o. q.a.m., MiraLax 17 grams p.o. daily, Mucinex 600 mg q.12 h., this is new, only for 3 days and doxycycline 100 mg p.o. b.i.d. for 3 days also. The patient upon discharge was able to up and ambulate and states he feels a lot better. He will continue to take his CPAP at night. He is on chronic 2 liters of oxygen. Patient will follow up with his PCP in 1 week and also with Nephrology.
== END 2017-10-18 16:15 | disposition home health service (06) | DRG 683 ==
LOC: ERS 10:09 → T4-A 14:58
PROVIDERS: ADMIT Internal Medicine; ATTEND Internal Medicine
DX: N17.9 Acute kidney failure, unspecified (principal); I13.0 Hypertensive heart and chronic kidney disease with heart failure and stage 1 through stage 4 chronic kidney disease, or unspecified chronic kidney disease; E11.22 Type 2 diabetes mellitus with diabetic chronic kidney disease; E87.2 Acidosis; I50.32 Chronic diastolic (congestive) heart failure; Z68.42 Body mass index [BMI] 45.0-49.9, adult; J44.9 Chronic obstructive pulmonary disease, unspecified; E66.01 Morbid (severe) obesity due to excess calories; Z99.81 Dependence on supplemental oxygen; J06.9 Acute upper respiratory infection, unspecified; E86.0 Dehydration; E87.6 Hypokalemia; I25.2 Old myocardial infarction; Z85.828 Personal history of other malignant neoplasm of skin; Z72.0 Tobacco use; G47.33 Obstructive sleep apnea (adult) (pediatric); E78.5 Hyperlipidemia, unspecified; I25.10 Atherosclerotic heart disease of native coronary artery without angina pectoris; N18.9 Chronic kidney disease, unspecified
CPT/HCPCS: 36415; 36416; 51701; 71045; 80048; 80053; 81003; 82550; 82553; 83605; 83735; 83880; 84145; 84484; 85007; 85025; 85027; 87040; 87070; 87149; 87205; 87804; 93005; 94640; 96374; A4216; G8978-GP-CM; G8979-GP-CK; G8987-GO-CJ; G8988-GO-CI; J0696; J1644; J1815; J2920; J3480; J7050; J7506; J7620

== ENCOUNTER 2017-12-10 06:01 | Inpatient (IN) | payer MEDICARE, MEDICAID ==
[2017-12-10] MEDS ORDERED: Furosemide 40 MG/4 ML VIAL ONE (06:24)
[2017-12-10] MEDS ORDERED: methylPREDNISolone Sod Succ/PF 125 MG/2 ML VIAL ONE (06:24)
[2017-12-10 06:29] LABS: Actual Bicarbonate (HCO3a) 22.6 mEq/L (22-26); Base Excess (BEa) -0.9 mEq/L (0 (+/-) 2.5); CO2 Tension 34.1 mmHg (35.0-45.0); Hematocrit-ABG 44.5 % (42.0-52.0); Hemoglobin (Hb) 14.6 g/dL (14.0-18.0); O2 Tension (PaO2) 92.1 mmHg (80.0-100.0); pH, Arterial 7.44 (7.35-7.45)
[2017-12-10 06:30] LABS: ALV-art Gradient 63.795 (0-20); Analyzer IN Cardio ER; Calcium, Ionized 1.2 mmol/L (1.12-1.30); Puncture Site LRA
[2017-12-10 07:20] LABS: #Eosinphils 0.1 thou/uL (0.0-0.7); #Lymphocytes 0.7 thou/uL (1.20-3.40); #Monocytes 0.6 thou/uL (0.11-0.59); %Basophils 0.2 % (0.0-1.0); %Eosinophils 1.1 % (0.0-10.0); %Lymphocytes 6.7 % (21.0-51.0); Mean Corpuscular Hemoglobin 32.6 pg (27.0-31.0); Mean Corpuscular Volume 90.5 fl (80.0-94.0); Mean Platelet Volume 7.4 fL (7.4-10.4); Platelet Count 138 thou/uL (130-400); RBC Distribution Width 14.5 % (11.5-14.5); Red Blood Cell (RBC) Count 4.62 mill/uL (4.70-6.10); White Blood Cell (WBC) Count 10.5 thou/uL (4.8-10.8)
[2017-12-10 07:40] LABS: ALT (SGPT) 16 U/L (8-55); AST (SGOT) 13 U/L (5-34); Albumin 4.1 g/dL (3.4-4.8); Alkaline Phosphatase 75 U/L (40-150); Anion Gap 17 mmol/L (10-20); BUN (Urea Nitrogen) 22 mg/dL (8.4-25.7); Bilirubin, Total 0.7 mg/dL (0.2-1.2); CK (CPK) 137 U/L (30-200); Calc. Creatinine Clearance 0 mL/min (70-130); Calcium 9.3 mg/dL (7.8-10.44); Carbon Dioxide 23 mmol/L (23-31); Chloride 102 mmol/L (98-107); Estimated GFR-MDRD 39; Globulin 2.4 g/dL (2.4-3.5); Glucose 192 mg/dL (80-115); Potassium 4.4 mmol/L (3.5-5.1); Protein, Total 6.5 g/dL (5.8-8.1); Sodium 138 mmol/L (136-145)
--- NOTE | 2017-12-10 08:10 | RAD ---
CHEST 1 VIEW: Date: 12/10/17 HISTORY: Difficulty breathing. Pneumonia. COPD. CHF. COMPARISON: 10/15/17. FINDINGS: Portable upright chest demonstrates a normal cardiac silhouette. Pulmonary vessels are slightly promi nent. Patchy interstitial opacities, without consolidation or mass. No pneumothorax or osseous abnorm alities. IMPRESSION: Patchy pulmonary vascular prominence. Correlate for volume overload. POS: [facility]
[2017-12-10 08:23] LABS: CKMB 1.3 ng/mL (0-6.6); Troponin I 0.016 ng/mL (< 0.028)
[2017-12-10] MEDS ORDERED: traMADol HCl 50 MG TAB ONE (09:35)
[2017-12-10] MEDS ORDERED: Piperacillin/Tazobactam 4.5 GM VIAL ONE (10:03)
[2017-12-10] MEDS ORDERED: SODIUM CHLORIDE 0.9% IVPB ONE (11:15)
[2017-12-10] MEDS ORDERED: VANCOMYCIN HCL IVPB ONE (11:15)
[2017-12-10] MEDS ORDERED: ADMIXTURE FEE CHEMO IVPB ONE (11:15)
[2017-12-10] MEDS ORDERED: Gentamicin Sulfate 490 MG in Sodium Chloride 0.9% 100 ML IVPB ONE (11:45)
--- NOTE | 2017-12-10 12:46 | CON ---
DATE OF CONSULTATION: 12/10/2017 CONSULTING PHYSICIAN: Dr. Prabhakar from the emergency room. REASON FOR CONSULTATION: Pneumonia with acute respiratory failure. HISTORY OF PRESENT ILLNESS: Mr. Hernandez is a 62-year-old, who is well known to me from previous visits to the office related to chronic obstructive pulmonary disease and sleep apnea. He routinely follows with Dr. Edwards as an outpatient, but was previously seeing Dr. Cuellar before he retired. The patient came to the hospital today after waking up at 4:30 this morning extremely short of breath. Apparently, had a temperature just above 100. He has been coughing. He has not been wheezing. He has not had any chest pain. He says he has been faithfully taking his medications at home. PAST MEDICAL HISTORY: 1. Severe chronic obstructive pulmonary disease, requiring chronic prednisone and chronic home oxygen. 2. Nasal polyps. 3. Coronary artery disease. 4. Severe ERLIN. 5. Morbid obesity. 6. Diabetes mellitus type 2. 7. Chronic back pain. 8. Hypertension. PAST SURGICAL HISTORY: 1. He has had several nasal polypectomies. 2. Cardiac catheterization with PTCA and stent. ALLERGIES: None. SOCIAL HISTORY: Quit smoking about 16 years ago. Lives at home with his . Does not use alcohol. MEDICATIONS PRIOR TO ADMISSION: Based on his last discharge medications 2 months ago: He is taking trazodone 100 mg nightly; prednisone 20 mg daily; Klonopin 1 mg nightly; Protonix 40 mg daily; Bystolic 5 mg daily; Tessalon perles 100 mg t.i.d. as needed; atorvastatin 20 mg daily; Lasix 40 mg twice daily; Levemir insulin 45 units at night; iron sulfate 325 mg daily; tramadol 50 mg b.i.d. as needed; glipizide 10 mg b.i.d.; Singulair 10 mg at night; DuoNebs 4 times daily; Neurontin 300 mg t.i.d.; Plavix 75 mg daily; Humalog insulin 40 units t.i.d.; Advair 250/50 one puff twice daily; aspirin 81 mg daily ; buspirone 5 mg b.i.d.; potassium chloride 40 mEq daily; fluoxetine 50 mg daily ; theophylline-24, unknown dose b.i.d.; spironolactone 12.5 mg daily; MiraLax 17 grams daily; Mucinex 600 mg b.i.d. REVIEW OF SYSTEMS: Remarkable for obesity, chronic shortness of breath, chronic sputum production. Otherwise, 10-point review of systems is negative. PHYSICAL EXAMINATION: VITAL SIGNS: Temperature 100.1, pulse 85, blood pressure 147/85, respiratory rate 18, O2 sat 100% on 3 liters. GENERAL: He is awake, alert, appears to be comfortable. He is a morbidly obese male, who is in no acute distress. HEENT: Pupils react. Sclerae anicteric. Oropharynx clear. NECK: No adenopathy or JVD. LUNGS: Diminished breath sounds without active wheezing or rhonchi. CARDIOVASCULAR: S1, S2 regular without murmur. ABDOMEN: Soft, obese, nontender, and nondistended. EXTREMITIES: No clubbing or cyanosis. Has 1+ edema from knees downward. LABORATORY DATA: White blood cell count 10.5, hematocrit 41.8, platelet count 138. PH of 7.44, pCO2 of 34, pO2 of 92 that was on BiPAP, total rate 28%. Sodium 138, potassium 4.4, chloride 102, CO2 of 23, BUN 22, creatinine 1.7, glucose 192. Troponin 0.016. BNP 92.2. IMAGING: Chest x-ray reviewed personally by myself shows bilateral interstitial changes, pneumonitis versus pulmonary edema. ASSESSMENT: 1. Febrile illness -- bronchitis versus pneumonia. 2. History of chronic obstructive pulmonary disease -- actually, he is well compensated at the current time. 3. Coronary artery disease. 4. Morbid obesity. 5. Renal dysfunction. RECOMMENDATIONS: 1. I would treat the patient with broad-spectrum antibiotics. I would also treat him with steroids. I have been able to successfully wean him off the BiPAP in the ER. He needs to continue wear his home CPAP at night. 2. I will be happy to follow with you. 70min time spent on consult. Of that time >50% was spent with patient and/or on pts unit MTDD
[2017-12-10] MEDS ORDERED: Dextrose 5% in Water 1,000 ML IV PRN (14:32)
[2017-12-10] MEDS ORDERED: Dextrose 50% Abboject 50 ML SYRINGE SLOW IVP PRN (14:32)
[2017-12-10] MEDS ORDERED: HumaLOG 300 UNITS/3 ML VIAL SC PRN (14:32)
[2017-12-10] MEDS ORDERED: cloNIDine 0.1 MG TAB PO PRN (14:34)
[2017-12-10] MEDS ORDERED: Acetaminophen 325 MG TAB PO PRN (14:34)
[2017-12-10] MEDS ORDERED: traMADol HCl 50 MG TAB PO PRN (14:34)
[2017-12-10] MEDS ORDERED: HYDROcodone/Acetaminophen 5/325 mg Tablet PO PRN (14:34)
[2017-12-10] MEDS ORDERED: Loratadine 10 MG TAB PO PRN (14:34)
[2017-12-10] MEDS ORDERED: Bisacodyl 5 MG TAB PO PRN (14:34)
[2017-12-10] MEDS ORDERED: hydrALAZINE 20 MG/ML VIAL SLOW IVP PRN (14:34)
[2017-12-10] MEDS ORDERED: Mag-Al 1200 mg/1200 mg/30 ML UDCUP PO PRN (14:34)
[2017-12-10] MEDS ORDERED: Senokot 8.6 MG TAB PO PRN (14:34)
[2017-12-10] MEDS ORDERED: Diabetic Tussin 200 MG/10 ML UDCUP PO PRN (14:34)
[2017-12-10] MEDS ORDERED: Benzonatate 100 MG CAP PO PRN (14:34)
[2017-12-10] MEDS ORDERED: Nitroglycerin 0.4 MG TAB (25 Tab Bottle) SL PRN (14:34)
[2017-12-10] MEDS ORDERED: Ondansetron HCl/PF 4 MG/2 ML Vial IVP PRN (14:34)
--- NOTE | 2017-12-10 15:33 | HP ---
DATE OF ADMISSION: 12/10/2017 PRIMARY CARE PHYSICIAN: Kashmir Edwards D.O. CHIEF COMPLAINT: Worsening shortness of breath. HISTORY OF PRESENT ILLNESS: Mr. Hernandez is a 62-year-old male with past medical history of chronic shital stolic congestive heart failure as well as severe obstructive sleep apnea, on CPAP; coronary artery d isease; and morbid obesity, who presented to the emergency room with the above-mentioned complaint. History is mainly obtained by the patient himself. Electronic medical records have been reviewed and the case has been discussed with the admitting ER physician. He was recently admitted to our facility from 10/15/2017 to 10/18/2017 and was treated for acute jabari l insufficiency, possible upper respiratory tract infection, hypokalemia, and generalized weakness. The patient reports that he has been compliant with his medication and has been feeling fairly well u p until earlier this morning. When he woke up in the early hours of morning today, he suddenly felt that he could not breathe. He is using his CPAP as prescribed and denies any recent illnesses. He d enies any cough, but has noticed a low-grade temperature earlier this morning around 100 degrees. He denies any recent sick contacts. He did not take any nebulizers at home, but tried inhalers without any relief. He denies any chest pain, left arm paraesthesias or any wheezing. Upon presentation to the emergency room, he was tachycardic to heart rate 111 and was in acute respir atory distress. He was started on BiPAP immediately with significant improvement. His initial milady p included a chest x-ray which showed mild pulmonary vascular congestion, but no infiltrate. His lab work was rather unimpressive with normal WBC count, normal cardiac enzymes and normal BNP. He was g iven Lasix x1 dose in the In the emergency room, he received 1 dose of Lasix as well as Solu-Medrol. He was seen by his pulmon ologist, Dr. Werner in the emergency room and was weaned off of BiPAP and by the time I saw him he i s comfortable at a nasal cannula at home oxygen rate. He is now being admitted to the hospital with acute respiratory failure which seems to be multifactorial. PAST MEDICAL HISTORY: 1. Severe COPD and chronic respiratory failure, on home oxygen. 2. Obstructive sleep apnea, on CPAP at night. 3. Chronic diastolic heart failure. 4. Morbid obesity. 5. Diabetes mellitus type 2. 6. Hypertension. 7. Dyslipidemia. 8. Coronary artery disease, status post NE and stent placement in 2016. 9. Pulmonary hypertension. 10. Peripheral neuropathy. PAST SURGICAL HISTORY: Cardiac catheterization, sinus surgery, CAD, stent placement in 2016. ALLERGIES: FLOMAX, which causes nausea and LEVAQUIN that causes cardiac problems. SOCIAL HISTORY: Quit smoking decades ago. No history of drug, tobacco or alcohol abuse. He is ivy ied and lives with his family. FAMILY HISTORY: Significant for cardiac disease in father, mother having stroke. REVIEW OF SYSTEMS: REVIEW OF SYSTEMS: The following complete review of systems was negative, unless otherwise mentioned in the HPI or below: Constitutional: Weight loss or gain, ability to conduct u sual activities. Skin: Rash, itching. Eyes: Double vision, pain. ENT/Mouth: Nose bleeding, neck stiffness, pain, tenderness. Cardiovascular: Palpitations, dyspnea on exertion, orthopnea. Respir atory: Shortness of breath, wheezing, cough, hemoptysis, fever or night sweats. Gastrointestinal: Poor appetite, abdominal pain, heartburn, nausea, vomiting, constipation, or diarrhea. Genitourinary : Urgency, frequency, dysuria, nocturia. Musculoskeletal: Pain, swelling. Neurologic/Psychiatric: Anxiety, depression. Allergy/Immunologic: Skin rash, bleeding tendency. Except otherwise mentioned in the HPI, 12 point review of systems is done and is negative. HOME MEDICATIONS: As per the ER record include cefdinir 300 mg once daily, Bystolic 5 mg daily, Alondra Lax as needed, Aldactone 12.5 mg daily, theophylline 100 mg b.i.d., fluoxetine 50 mg daily, potassium chloride daily, buspirone 5 mg b.i.d., Advair daily, Humalog, aspirin, Plavix 75 mg daily, gabapenti n 300 t.i.d., DuoNebs as needed, montelukast 10 mg daily, Protonix 40 mg daily, glipizide 10 mg daily , tramadol as needed, clonazepam, on a tapering dose. His neurologist, Dr. Santos is trying to get him off of it. He is supposed to take 1 mg at bedtime, trazodone 100 mg daily, Proventil daily as neede d, ferrous sulfate 325 mg daily, atorvastatin 20 mg daily, [place] as needed, Levemir is 42 units at be dtime, prednisone 20 mg daily, Lasix 80 mg b.i.d., Norvasc 10 mg daily, and hydralazine 25 mg b.i.d. These medications further need to be confirmed. LABORATORY DATA: CBC shows hemoglobin at 15, WBC 10.5, platelet count of 138. ABG shows pH of 7.4, pCO2 of 34, pO2 of 92. Serum chemistries, creatinine of 1.76 with estimated GFR of 39, blood sugar 1 92. Otherwise, serum chemistries, cardiac enzymes and BNP are unremarkable. Theophylline level is l ow at 8.5. Chest x-ray by my review has no evidence to suggest any infiltrate, but does suggest a po ssible pulmonary vascular congestion. PHYSICAL EXAMINATION: VITAL SIGNS: Temperature 100.1, pulse of 85, blood pressure 147/85, respirations 18, saturating 100% on 3 liters nasal cannula. GENERAL: No acute distress. He does get easily winded with long conversation, but is otherwise awak e, alert, oriented x3, morbidly obese. HEENT: Mucous membrane is moist and pink. No oropharyngeal exudate or erythema. Head is normocepha lic, atraumatic. Pupils equal, reactive to light and accommodation. Extraocular movement intact. NECK: Obese, soft, nontender, difficult to auscultate because of muscle mass and thickness. LUNGS: Diminished breath sounds without any active wheezing, rhonchi, or rales. CARDIOVASCULAR: Regular rate and rhythm is regular without any murmur, rubs or gallops. ABDOMEN: Morbidly obese, soft, nontender, nondistended, positive bowel sounds. EXTREMITIES: Mild pitting edema bilaterally lower extremities in the lower legs, knee or ankle. No cyanosis or clubbing. NEUROLOGIC: Nonfocal. SKIN: Free of any rashes or bruises. I feel warm and dry to touch. PSYCHIATRIC: Normal affect. IMPRESSION AND PLAN: 1. Acute respiratory failure. The patient has been weaned off of BiPAP and is currently stable on o xygen with nasal cannula. He will be admitted to telemetry unit. His presentation seems to be multi factorial. He does have a fever and the possibility of infection cannot be ruled out at this time. He also seems to be having a chronic obstructive pulmonary disease exacerbation as well as mild fluid overload. He will be treated with empiric antibiotics, IV Lasix as well as IV steroids, nebulizers, oxygen, and Dulera while he is in the hospital. Pulmonary Medicine team has been consulted and Dr. Werner has already seen the patient. We appreciate his input. We will continue his CPAP at night w lulu in the hospital. 2. Chronic kidney disease. Creatinine seems to be at baseline for now. 3. History of chronic obstructive pulmonary disease and chronic respiratory failure. Continue home medications once confirmed and additional medication, aspirin. 4. Acute on chronic diastolic congestive heart failure. Continue IV Lasix for a short course as the patient does not appear to be in much fluid overload at this time. 5. Obstructive sleep apnea, on CPAP. We will continue this in the hospital. 6. Hypertension. Resume home medications, currently well controlled. 7. Diabetes mellitus type 2. We will resume his long-acting insulin and start him on insulin slidin g scale while in the hospital. He will require higher level of coverage given the fact that he is al so going to be on IV steroids leading to hyperglycemia. 8. Coronary artery disease, status post myocardial infarction and stent placement. We will resume h ome medications once confirmed. We will continue with aspirin and Plavix. 9. Peripheral neuropathy. Resume gabapentin once the dose is confirmed. 10. History of chronic low back pain. 11. Code status: FULL CODE. Discussed with the patient and his present in the room. 12. Deep venous thrombosis and gastrointestinal prophylaxis and p.r.n. medications. DISPOSITION: Mr. Hernandez is currently being admitted for acute respiratory failure. Estimated length of stay is at least 2-3 midnight. Further management will depend upon his clinical course.
[2017-12-10] MEDS: Heparin 5,000 UNITS/ML VIAL SC SCH (17:24)
[2017-12-10] MEDS: HumaLOG 300 UNITS/3 ML VIAL SC PRN (17:25)
[2017-12-10 18:16] VITALS: BMI 48.2
[2017-12-10] MEDS: Arformoterol 15 MCG/2 ML NEB NEB SCH (18:35)
[2017-12-10] MEDS: Budesonide 0.5 MG/2 ML NEB INH SCH (18:36)
[2017-12-10] MEDS ORDERED: Cefepime 1 GM, Admixture Fee 1 EACH in Sterile Water 10 ML SLOW IVP SCH (21:00)
[2017-12-10] MEDS ORDERED: Cefepime 1 GM in Sodium Chloride 0.9% 100 ML IVPB SCH (21:00)
[2017-12-10] MEDS ORDERED: FLUoxetine HCl 20 MG CAP PO SCH (23:30)
[2017-12-10] MEDS ORDERED: traZODone HCl 50 MG TAB PO SCH (23:30)
[2017-12-10] MEDS ORDERED: clonazePAM 1 MG TAB PO SCH (23:45)
[2017-12-10] MEDS ORDERED: busPIRone HCl 5 MG TAB PO SCH (23:45)
[2017-12-11] MEDS: Heparin 5,000 UNITS/ML VIAL SC SCH ×4 (00:28→21:20)
[2017-12-11] MEDS: guaiFENesin ER 600 MG TAB PO SCH ×3 (00:29→21:17)
[2017-12-11] MEDS: Montelukast Sodium 10 mg Tablet PO SCH ×2 (00:31→21:16)
[2017-12-11] MEDS: Calcium Carbonate 500 MG ChewTAB PO PRN ×2 (00:39→14:54)
[2017-12-11 05:35] LABS: #Lymphocytes 0.6 thou/uL (1.20-3.40); #Monocytes 0.5 thou/uL (0.11-0.59); #Neutrophils 12.2 thou/uL (1.40-6.50); %Eosinophils 0.2 % (0.0-10.0); %Lymphocytes 4.5 % (21.0-51.0); %Neutrophils 91.3 % (42.0-75.0); Hemoglobin 13.4 g/dL (14.0-18.0); Mean Corpuscular HGB CONC 33.6 g/dL (32.0-36.0); Mean Corpuscular Hemoglobin 30.4 pg (27.0-31.0); Mean Corpuscular Volume 90.4 fl (80.0-94.0); Mean Platelet Volume 7.6 fL (7.4-10.4); Platelet Count 161 thou/uL (130-400); RBC Distribution Width 14.1 % (11.5-14.5); Red Blood Cell (RBC) Count 4.41 mill/uL (4.70-6.10); White Blood Cell (WBC) Count 13.3 thou/uL (4.8-10.8)
[2017-12-11 05:43] LABS: Anion Gap 14 mmol/L (10-20); BUN (Urea Nitrogen) 28 mg/dL (8.4-25.7); Calc. Creatinine Clearance 82 mL/min (70-130); Carbon Dioxide 26 mmol/L (23-31); Chloride 100 mmol/L (98-107); Estimated GFR-MDRD 38; Glucose 376 mg/dL (80-115); Sodium 136 mmol/L (136-145)
[2017-12-11] MEDS: Arformoterol 15 MCG/2 ML NEB NEB SCH ×2 (06:47→18:53)
[2017-12-11] MEDS: Budesonide 0.5 MG/2 ML NEB INH SCH ×2 (06:48→18:47)
--- NOTE | 2017-12-11 08:34 | PDOC.PULPN ---
Progress Note: Subj/Obj - Subjective Date: 12/11/17 Time: 08:32 Narrative: Feels better. He has no new complaints. Denies any more fever - ROS All systems: reviewed and no additional remarkable complaints except as stated - Objective Allergies/Adverse Reactions: Allergies Allergy/AdvReac Type Severity Reaction Status Date / Time levofloxacin [From Levaquin] Allergy Verified 09/05/17 23:55 tamsulosin [From Flomax] Allergy Verified 09/05/17 23:55 MAR Reviewed: Yes Vital Signs: Vital Signs Temp 98.1 F 12/11/17 07:22 Pulse 82 12/11/17 07:22 Resp 16 12/11/17 07:22 BP 124/75 12/11/17 07:22 Pulse Ox 92 L 12/11/17 07:22 Progress Note: Exam - Physical Exam Constitutional: NAD HEENT: PERRLA, moist MMs Neck: no nodes, no JVD Cardiovascular: RRR Respiratory: clear to auscultation bilaterally Gastrointestinal: soft, non-tender Musculoskeletal: edema present Neurological: non-focal, normal sensation, moves all 4 limbs Lymphatic: no nodes Psychiatric: normal affect, A&O x 3 Progress Note: Data - Labs Result Diagrams: 12/11/17 04:26 12/11/17 04:26 Progress Note: A/P - Problems (1) Febrile illness, acute Current Visit: Yes Status: Acute Code(s): R50.9 - FEVER, UNSPECIFIED (2) Chronic obstructive pulmonary disease Current Visit: Yes Status: Chronic (3) Sleep apnea in adult Current Visit: No Status: Chronic Code(s): G47.33 - OBSTRUCTIVE SLEEP APNEA (ADULT) (PEDIATRIC) - Plan Plan: Looks good. Should be able to convert to oral antibiotics. If all goes well, he can likely go home Wed.
[2017-12-11] MEDS: HumaLOG 300 UNITS/3 ML VIAL SC PRN ×3 (09:06→18:08)
[2017-12-11] MEDS: Furosemide 40 MG/4 ML VIAL SLOW IVP SCH (09:06)
[2017-12-11] MEDS: FLUoxetine HCl 20 MG CAP PO SCH (09:07)
[2017-12-11] MEDS: predniSONE 20 MG TAB PO SCH ×2 (09:07→21:18)
[2017-12-11] MEDS: busPIRone HCl 5 MG TAB PO SCH ×2 (09:08→21:18)
[2017-12-11] MEDS: Nebivolol HCl 5 MG TAB PO SCH (10:55)
[2017-12-11] MEDS: Spironolactone 25 MG TAB PO SCH (10:56)
[2017-12-11] MEDS: Aspirin 81 mg Enteric Coated Tablet PO SCH (10:56)
[2017-12-11] MEDS: Clopidogrel Bisulfate 75 MG TAB PO SCH (10:56)
--- NOTE | 2017-12-11 13:48 | PDOC.PN ---
- Subjective Encounter Start Date: 12/11/17 Encounter Start Time: 13:46 Subjective: feels much better today.easier to breathe. -: no chest pain - Objective MAR Reviewed: Yes Vital Signs & Weight: Vital Signs (12 hours) Temp Pulse Resp BP Pulse Ox 12/11/17 11:40 84 18 134/71 89 L 12/11/17 10:54 70 18 12/11/17 07:22 98.1 F 84 18 124/75 92 L 12/11/17 06:48 90 18 12/11/17 02:22 85 16 94 L Weight Weight 328 lb 9.6 oz I&O: 12/10/17 12/11/17 12/12/17 06:59 06:59 06:59 Intake Total 658 Output Total 1050 Balance -392 Result Diagrams: 12/11/17 04:26 12/11/17 04:26 Additional Labs: Accuchecks labs reviewed 12/11/17 12/11/17 12/10/17 10:59 05:57 17:05 POC Glucose 341 H 354 H 394 H Microbiology 12/10/17 10:04 Venous blood - Left Arm Blood Culture - Preliminary Specimen has been received and culture in progress. No Growth to date. 12/10/17 10:03 Venous blood - Right Arm Blood Culture - Preliminary Specimen has been received and culture in progress. No Growth to date. Phys Exam - Physical Examination Constitutional: NAD morbidly obese HEENT: PERRLA, moist MMs, sclera anicteric, oral pharynx no lesions Neck: no nodes, no JVD, supple, full ROM Respiratory: no wheezing, no rales, no rhonchi, clear to auscultation bilateral Cardiovascular: RRR, no significant murmur, no rub Gastrointestinal: soft, non-tender, no distention, positive bowel sounds morbid obesity Musculoskeletal: pulses present, edema present (+1 b/l leg) Neurological: non-focal, normal sensation, moves all 4 limbs Psychiatric: normal affect, A&O x 3 Skin: no rash Dx/Plan (1) Acute and chronic respiratory failure with hypoxia Code(s): J96.21 - ACUTE AND CHRONIC RESPIRATORY FAILURE WITH HYPOXIA Status: Acute Comment: Continue pulmonary support, Duonebs, Brovana,budesonide neb,o2 support,stroids,empiric ABx (2) Diastolic CHF, acute on chronic Code(s): I50.33 - ACUTE ON CHRONIC DIASTOLIC (CONGESTIVE) HEART FAILURE Status : Acute Comment: Mild. (3) COPD exacerbation Code(s): J44.1 - CHRONIC OBSTRUCTIVE PULMONARY DISEASE W (ACUTE) EXACERBATION Status: Chronic (4) DM type 2 (diabetes mellitus, type 2) Status: Chronic (5) Dyslipidemia Code(s): E78.5 - HYPERLIPIDEMIA, UNSPECIFIED Status: Chronic (6) Hypertension Code(s): I10 - ESSENTIAL (PRIMARY) HYPERTENSION Status: Chronic Qualifiers: (7) Morbid obesity Code(s): E66.01 - MORBID (SEVERE) OBESITY DUE TO EXCESS CALORIES Status: Chronic (8) Sleep apnea in adult Code(s): G47.33 - OBSTRUCTIVE SLEEP APNEA (ADULT) (PEDIATRIC) Status: Chronic Comment: Nocturnal CPAP (9) Chronic respiratory failure Code(s): J96.10 - CHRONIC RESPIRATORY FAILURE, UNSP W HYPOXIA OR HYPERCAPNIA Status: Acute (10) PNA (pneumonia) Code(s): J18.9 - PNEUMONIA, UNSPECIFIED ORGANISM Status: Suspected - Plan plan discussed w/ family, PT/OT, respiratory therapy, incentive spirometry, DVT proph w/SCDs clinically better.change to Po steroids & PO ABx. -: cont nebs,lasix for now. -: PCCM following.[place] in am -: have HH at home.cont home meds as below -: monitor renal Fx. am labs * . Review of Systems - Review of Systems Constitutional: negative: fever, chills, sweats, weakness, malaise, other ENT: negative: Ear Pain, Ear Discharge, Nose Pain, Nose Discharge, Nose Congestion, Mouth Pain, Mouth Swelling, Throat Pain, Throat Swelling, Other Respiratory: SOB with Excertion, Wheezing. negative: Cough, Dry, Shortness of Breath, Hemoptysis, Pleuritic Pain, Sputum Gastrointestinal: negative: Nausea, Vomiting, Abdominal Pain, Diarrhea, Constipation, Melena, Hematochezia, Other Genitourinary: negative: Dysuria, Frequency, Incontinence, Hematuria, Retention , Other Musculoskeletal: negative: Neck Pain, Shoulder Pain, Arm Pain, Back Pain, Hand Pain, Leg Pain, Foot Pain, Other Skin: negative: Rash, Lesions, Stephen, Bruising, Other Neurological: negative: Weakness, Numbness, Incoordination, Change in Speech, Confusion, Seizures, Other - Medications/Allergies Allergies/Adverse Reactions: Allergies Allergy/AdvReac Type Severity Reaction Status Date / Time levofloxacin [From Levaquin] Allergy Verified 09/05/17 23:55 tamsulosin [From Flomax] Allergy Verified 09/05/17 23:55 Medications: Current Medications Acetaminophen (Tylenol) 650 mg PO Q4H PRN PRN Reason: Headache/Fever or Pain Hydrocodone Bitart/Acetaminophen ([place] 5/325) 1 tab PO Q4H PRN PRN Reason: Moderate Pain (4-6) Al Hydroxide/Mg Hydroxide (Maalox) 30 ml PO Q6H PRN PRN Reason: Heartburn or Indigestion Albuterol/Ipratropium (Duoneb) 3 ml NEB [id number] [facility] Last Admin: 12/11/17 10:54 Dose: 3 ml Amlodipine Besylate (Norvasc) 10 mg PO DAILY [facility] Arformoterol Tartrate (Brovana) 15 mcg NEB BID-RT [facility] Last Admin: 12/11/17 06:47 Dose: 15 mcg Aspirin (Ecotrin) 81 mg PO DAILY [facility] Last Admin: 12/11/17 10:56 Dose: 81 mg Atorvastatin Calcium (Lipitor) 20 mg PO HS [facility] Benzonatate (Tessalon) 100 mg PO Q4H PRN PRN Reason: Cough Bisacodyl (Dulcolax) 10 mg PO DAILYPRN PRN PRN Reason: Constipation Budesonide (Pulmicort Neb Solution) 0.5 mg INH BID-RT [facility] Last Admin: 12/11/17 06:48 Dose: 0.5 mg Buspirone HCl (Buspar) 5 mg PO BID [facility] Last Admin: 12/11/17 09:08 Dose: 5 mg Calcium Carbonate (Tums) 1,000 mg PO Q4H PRN PRN Reason: Heartburn or Indigestion Last Admin: 12/11/17 00:39 Dose: 1,000 mg Cefdinir (Omnicef) 600 mg PO 2100 [facility] Clonazepam (Klonopin) 2 mg PO HS [facility] Clonidine (Catapres) 0.1 mg PO Q4H PRN PRN Reason: Systolic BP > 160 Clopidogrel Bisulfate (Plavix) 75 mg PO DAILY [facility] Last Admin: 12/11/17 10:56 Dose: 75 mg Dextrose/Water (Dextrose 50%) 25 gm SLOW IVP PRN PRN PRN Reason: Hypoglycemia Ferrous Sulfate (Feosol) 325 mg PO 0800 [facility] Fluoxetine HCl (Prozac) 40 mg PO DAILY [facility] Last Admin: 12/11/17 09:07 Dose: 40 mg Furosemide (Lasix) 40 mg SLOW IVP DAILY [facility] Last Admin: 12/11/17 09:06 Dose: 40 mg Gabapentin (Neurontin) 300 mg PO TID [facility] Glipizide (Glucotrol) 10 mg PO BID-AC [facility] Glucagon (Glucagon) 1 mg IM PRN PRN PRN Reason: Hypoglycemia Guaifenesin (Mucinex) 1,200 mg PO Q12HR [facility] Last Admin: 12/11/17 09:08 Dose: 1,200 mg Heparin Sodium (Porcine) (Heparin) 5,000 units SC TID [facility] Last Admin: 12/11/17 09:06 Dose: 5,000 units Hydralazine HCl (Apresoline) 10 mg SLOW IVP Q4H PRN PRN Reason: Systolic BP > 170 Hydralazine HCl (Apresoline) 25 mg PO BID [facility] Dextrose/Water (D5w) 1,000 mls @ 0 mls/hr IV .Q0M PRN; As Directed PRN Reason: Hypoglycemia Insulin Detemir 15 units/ (Miscellaneous Medication) 0.15 mls @ 0 mls/hr SC HS [facility] Insulin Detemir 15 units/ (Miscellaneous Medication) 0.15 mls @ 0 mls/hr SC QAM [facility] Insulin Human Lispro (Humalog) 0 units SC .AGGRESSIVE SLIDING PRN PRN Reason: Aggressive Correctional Scale Last Admin: 12/11/17 11:56 Dose: 11 unit Insulin Human Lispro (Humalog) 0 units SC .BEDTIME SLIDING SC PRN PRN Reason: Bedtime Correctional Scale Isosorbide Mononitrate (Imdur Er) 30 mg PO DAILY [facility] Last Admin: 12/11/17 10:56 Dose: 30 mg Loratadine (Claritin) 10 mg PO DAILYPRN PRN PRN Reason: Sinus Symptoms Montelukast Sodium (Singulair) 10 mg PO QPM [facility] Last Admin: 12/11/17 00:31 Dose: 10 mg Nebivolol (Bystolic) 5 mg PO DAILY [facility] Last Admin: 12/11/17 10:55 Dose: 5 mg Nitroglycerin (Nitrostat) 0.4 mg SL Q5MIN PRN PRN Reason: Chest Pain Ondansetron HCl (Zofran) 4 mg IVP Q6H PRN PRN Reason: Nausea/Vomiting Pantoprazole Sodium (Protonix) 40 mg PO DAILY [facility] Last Admin: 12/11/17 09:08 Dose: 40 mg Prednisone (Prednisone) 20 mg PO BID [facility] Last Admin: 12/11/17 09:07 Dose: 20 mg Senna (Senokot) 2 tab PO HSPRN PRN PRN Reason: Constipation Spironolactone (Aldactone) 25 mg PO 0800 [facility] Last Admin: 12/11/17 10:56 Dose: 25 mg Theophylline (Theophylline Sr) 200 mg PO BID [facility] Last Admin: 12/11/17 09:06 Dose: 200 mg Tramadol HCl (Ultram) 50 mg PO Q4H PRN PRN Reason: Moderate Pain (4-6) Last Admin: 12/11/17 00:38 Dose: 50 mg Trazodone HCl (Desyrel) 200 mg PO HSPRN PRN PRN Reason: Insomnia
[2017-12-11] MEDS: Gabapentin 300 MG CAP PO SCH ×2 (15:16→21:18)
[2017-12-11] MEDS: glipiZIDE 10 MG TAB PO SCH (18:08)
[2017-12-11] MEDS ORDERED: Sodium Chloride 0.9% 10 ML ONE (20:03)
[2017-12-11] MEDS ORDERED: clonazePAM 1 MG TAB PO SCH ×3 (21:00)
[2017-12-11] MEDS ORDERED: Atorvastatin Calcium 20 MG TAB PO SCH (21:00)
[2017-12-11] MEDS ORDERED: Cefdinir 300 MG CAP PO SCH (21:00)
[2017-12-11] MEDS ORDERED: traZODone HCl 50 MG TAB PO PRN (21:00)
[2017-12-11] MEDS: hydrALAZINE 25 MG TAB PO SCH (21:18)
[2017-12-11] MEDS: Insulin Glargine 15 UNITS in Pre-Filled Syringe 1 EACH SC SCH (21:20)
[2017-12-12] MEDS: Budesonide 0.5 MG/2 ML NEB INH SCH (06:40)
[2017-12-12] MEDS: Arformoterol 15 MCG/2 ML NEB NEB SCH (06:41)
[2017-12-12] MEDS ORDERED: Ferrous Sulfate 325 MG TAB PO SCH (08:00)
--- NOTE | 2017-12-12 08:31 | PDOC.PULPN ---
Progress Note: Subj/Obj - Subjective Date: 12/12/17 Time: 08:30 Narrative: Doing well. No complaints. Wants to go home - ROS All systems: reviewed and no additional remarkable complaints except as stated - Objective Allergies/Adverse Reactions: Allergies Allergy/AdvReac Type Severity Reaction Status Date / Time levofloxacin [From Levaquin] Allergy Verified 09/05/17 23:55 tamsulosin [From Flomax] Allergy Verified 09/05/17 23:55 MAR Reviewed: Yes Vital Signs: Vital Signs Temp 97.4 F L 12/12/17 07:15 Pulse 72 12/12/17 07:15 Resp 18 12/12/17 07:15 BP 122/82 12/12/17 07:15 Pulse Ox 91 L 12/12/17 07:15 Intake & Output 12/11/17 12/12/17 12/12/17 18:59 06:59 18:59 Intake Total 816 610 Output Total 1700 350 Balance -884 260 Weight 328 lb 6.4 oz Intake: Intake, IV Amount 10 Oral 816 600 Output: Urine 1700 350 Other: Voiding Method Urinal Urinal # Bowel Movements 1 0 Progress Note: Exam - Physical Exam Constitutional: NAD HEENT: PERRLA, moist MMs Neck: no nodes Cardiovascular: RRR Respiratory: clear to auscultation bilaterally Gastrointestinal: soft, non-tender Musculoskeletal: edema present Neurological: non-focal Lymphatic: no nodes Psychiatric: normal affect, A&O x 3 Skin: no rash Progress Note: Data - Labs Result Diagrams: 12/11/17 04:26 12/11/17 04:26 Progress Note: A/P - Problems (1) Febrile illness, acute Current Visit: Yes Status: Acute Code(s): R50.9 - FEVER, UNSPECIFIED (2) Chronic obstructive pulmonary disease Current Visit: Yes Status: Chronic (3) Sleep apnea in adult Current Visit: No Status: Chronic Code(s): G47.33 - OBSTRUCTIVE SLEEP APNEA (ADULT) (PEDIATRIC) - Plan Plan: seems stable for dc finish out abx at home
[2017-12-12] MEDS ORDERED: Amlodipine 10 MG TAB PO SCH (09:00)
[2017-12-12] MEDS ORDERED: Insulin Detemir 100 UNITS/ML 15 UNITS in Pre-Filled Syringe 1 EACH SC SCH (09:00)
[2017-12-12 09:33] LABS: Anion Gap 13 mmol/L (10-20); BUN (Urea Nitrogen) 35 mg/dL (8.4-25.7); Calc. Creatinine Clearance 86 mL/min (70-130); Carbon Dioxide 26 mmol/L (23-31); Chloride 100 mmol/L (98-107); Estimated GFR-MDRD 37; Glucose 296 mg/dL (80-115); Potassium 3.4 mmol/L (3.5-5.1); Sodium 136 mmol/L (136-145)
[2017-12-12] MEDS: Gabapentin 300 MG CAP PO SCH (09:33)
[2017-12-12] MEDS: glipiZIDE 10 MG TAB PO SCH (09:33)
[2017-12-12] MEDS: Clopidogrel Bisulfate 75 MG TAB PO SCH (09:33)
[2017-12-12] MEDS: hydrALAZINE 25 MG TAB PO SCH (09:34)
[2017-12-12] MEDS: Spironolactone 25 MG TAB PO SCH (09:34)
[2017-12-12] MEDS: predniSONE 20 MG TAB PO SCH (09:34)
[2017-12-12] MEDS: guaiFENesin ER 600 MG TAB PO SCH (09:34)
[2017-12-12] MEDS: busPIRone HCl 5 MG TAB PO SCH (09:34)
[2017-12-12] MEDS: Nebivolol HCl 5 MG TAB PO SCH (09:34)
[2017-12-12] MEDS: Insulin Glargine 15 UNITS in Pre-Filled Syringe 1 EACH SC SCH (09:35)
[2017-12-12] MEDS: Heparin 5,000 UNITS/ML VIAL SC SCH (09:35)
[2017-12-12] MEDS: Aspirin 81 mg Enteric Coated Tablet PO SCH (09:35)
[2017-12-12] MEDS: Furosemide 40 MG/4 ML VIAL SLOW IVP SCH (09:35)
[2017-12-12] MEDS: FLUoxetine HCl 20 MG CAP PO SCH (09:43)
[2017-12-12] MEDS: HumaLOG 300 UNITS/3 ML VIAL SC PRN (12:56)
[2017-12-12 13:00] VITALS: TEMP 98.1
[2017-12-12 14:56] VITALS: BP 122/82
--- NOTE | 2017-12-12 16:42 | DIS ---
DATE OF ADMISSION: 12/10/2017 DATE OF DISCHARGE: 12/12/2017 CONDITION AT THE TIME OF DISCHARGE: Stable and improved. DISCHARGE DIAGNOSES: 1. Acute respiratory failure, multifactorial in nature. 2. Acute on chronic diastolic congestive heart failure. 3. Chronic obstructive pulmonary disease exacerbation. 4. Suspected pneumonia. 5. Diabetes mellitus type 2. 6. Dyslipidemia. 7. Hypertension. 8. Morbid obesity. 9. Obstructive sleep apnea on nocturnal CPAP. 10. Chronic respiratory failure on home oxygen. DISCHARGE MEDICATIONS: Remain the same as the home medications which are a multitude of medicines. Please see admission history and physical dictated by myself for the whole list. NEW MEDICATIONS: Omnicef 600 mg p.o. daily for 5 more days. IN-HOUSE CONSULTATIONS: Pulmonary Critical Care Medicine, Dr. Werner. PROCEDURES IN THE HOSPITAL: Include chest x-ray upon admission, which showed pulmonary vascular desirae estion. HOSPITAL COURSE: Mr. Jordon Clifford is a 62-year-old male with known history of chronic respiratory failure due to chronic diastolic congestive heart failure, COPD and severe obstructive sleep apnea wh o is a patient of Dr. Werner, presented to the emergency room with complaints of worsening shortness of breath of few hours duration. Upon presentation, he was hemodynamically stable, but somewhat tac hycardic. Initially, he required BiPAP in the emergency room which was later tapered off to nasal ca nnula. He was seen by his wildlife conservation professor, Dr. Werner in the emergency room. He was found to have no rmal BNP, but chest x-ray which was suggestive of mild fluid overload. He was given IV Lasix in the ER as well. There was also a component of COPD, so he was started on IV steroids, and empiric IV ant ibiotic for possible pneumonitis as well. Please see admission history and physical for further deta ils. HOSPITAL COURSE: The patient was followed on a daily basis. He was continued on gentle diuresis, IV steroids and IV antibiotics which were all later changed to oral. He was continued on nebulizers an d long-acting inhaled bronchodilators as well. His home medications were restarted. CPAP was provid ed in the hospital at night. He had rapid improvement in his symptoms and of this morning, he has been cleared by Pulmonary medici ne to discharge as well. He is back to his baseline and is eager to go home. He was seen and examined this morning. PHYSICAL EXAMINATION: VITAL SIGNS: Temperature 97.4, heart rate 82, blood pressure 122/82, respirations 16, saturating 95% on 2 liters nasal cannula. GENERAL: No acute distress, awake, alert, oriented x3. He does get easily winded with conversation which he reports is baseline for him. CHEST: Clear to auscultation bilaterally without any significant wheezes or crackles, though it is d ifficult to auscultate because of morbid obesity. HEART: Rate and rhythm is regular. EXTREMITIES: Show trace pitting edema bilaterally which is improved since admission. LABORATORY DATA: His serum chemistry showed potassium of 3.4, which will be replaced prior to discha rge. His serum creatinine is 1.86, which was 1.76 at the time of presentation and seems to be his ba seline. Blood sugar 296. DISCHARGE INSTRUCTIONS: He is instructed to follow up with Dr. Werner in the Pulmonary Clinic as we ll as with his primary care physician and he verbalized understanding. Prescriptions were provided. PRIMARY CARE PHYSICIAN: Kashmir Edwards D.O.
== END 2017-12-12 13:50 | disposition home or self-care (01) | DRG 291 ==
LOC: ERS 06:01 → 2NO 10:09
PROVIDERS: ADMIT Internal Medicine; ATTEND Internal Medicine
PROC: 5A09357 Assistance with Respiratory Ventilation, Less than 24 Consecutive Hours, Continuous Positive Airway Pressure (ICD-10-PCS; principal; 2017-12-10)
DX: I13.0 Hypertensive heart and chronic kidney disease with heart failure and stage 1 through stage 4 chronic kidney disease, or unspecified chronic kidney disease (principal); I50.33 Acute on chronic diastolic (congestive) heart failure; J18.9 Pneumonia, unspecified organism; J96.21 Acute and chronic respiratory failure with hypoxia; J44.1 Chronic obstructive pulmonary disease with (acute) exacerbation; Z68.43 Body mass index [BMI] 50.0-59.9, adult; J44.0 Chronic obstructive pulmonary disease with (acute) lower respiratory infection; I25.10 Atherosclerotic heart disease of native coronary artery without angina pectoris; E66.01 Morbid (severe) obesity due to excess calories; Z99.81 Dependence on supplemental oxygen; E78.5 Hyperlipidemia, unspecified; I27.20 Pulmonary hypertension, unspecified; G62.9 Polyneuropathy, unspecified; Z87.891 Personal history of nicotine dependence; N18.9 Chronic kidney disease, unspecified; E11.22 Type 2 diabetes mellitus with diabetic chronic kidney disease
CPT/HCPCS: 36415; 36416; 71045; 80048; 80053; 80198; 82553; 82805; 83735; 83880; 84484; 85025; 87040; 87149; 93005; 94640; 94660; 96365; 96366; 96367; 96368; 96375; 99406; A4216; G8978-GP-CJ; G8979-GP-CI; G8987-GO-CK; G8988-GO-CK; G8989-GO-CK; J0692; J1580; J1644; J1815; J1940; J2543; J2920; J2930; J3370; J7050; J7506; J7620; J7626

== ENCOUNTER 2017-12-21 16:57 | Inpatient (IN) | payer MEDICARE, MEDICAID ==
[2017-12-21 17:40] LABS: #Basophils 0.2 thou/uL (0.0-0.2); #Eosinphils 0.1 thou/uL (0.0-0.7); #Lymphocytes 1.9 thou/uL (1.20-3.40); #Monocytes 0.5 thou/uL (0.11-0.59); %Basophils 1.2 % (0.0-1.0); %Eosinophils 0.5 % (0.0-10.0); %Monocytes 3.8 % (0.0-10.0); %Neutrophils 80.5 % (42.0-75.0); Hemoglobin 15.2 g/dL (14.0-18.0); Mean Corpuscular HGB CONC 34.5 g/dL (32.0-36.0); Mean Corpuscular Hemoglobin 31.2 pg (27.0-31.0); Mean Corpuscular Volume 90.5 fl (80.0-94.0); Mean Platelet Volume 7.1 fL (7.4-10.4); Platelet Count 203 thou/uL (130-400); RBC Distribution Width 14.1 % (11.5-14.5); Red Blood Cell (RBC) Count 4.88 mill/uL (4.70-6.10); White Blood Cell (WBC) Count 13.7 thou/uL (4.8-10.8)
[2017-12-21 17:51] LABS: ALT (SGPT) 19 U/L (8-55); AST (SGOT) 10 U/L (5-34); Albumin 3.9 g/dL (3.4-4.8); Alkaline Phosphatase 61 U/L (40-150); Anion Gap 19 mmol/L (10-20); BUN (Urea Nitrogen) 28 mg/dL (8.4-25.7); Bilirubin, Total 0.6 mg/dL (0.2-1.2); Calc. Creatinine Clearance 0 mL/min (70-130); Calcium 9.3 mg/dL (7.8-10.44); Carbon Dioxide 19 mmol/L (23-31); Chloride 102 mmol/L (98-107); Estimated GFR-MDRD 37; Globulin 2.7 g/dL (2.4-3.5); Glucose 315 mg/dL (80-115); Potassium 3.9 mmol/L (3.5-5.1); Protein, Total 6.6 g/dL (5.8-8.1); Sodium 136 mmol/L (136-145)
[2017-12-21 18:34] LABS: Bilirubin Negative (Negative); Blood, Urine Negative (Negative); Clarity CLEAR (Clear); Glucose, Urine (Dipstick) 250 mg/dL (Negative); Leukocyte Negative (Negative); Nitrite Negative (Negative); Protein, Urine (Dipstick) Negative (Neg-Trace); Specific Gravity, Urine 1.009 (1.002-1.036); Urobilinogen 0.2 mg/dL (0.2-1.0)
[2017-12-21] MEDS ORDERED: methylPREDNISolone Sod Succ/PF 125 MG/2 ML VIAL ONE (19:32)
[2017-12-21] MEDS ORDERED: Azithromycin 250 MG TAB ONE (19:32)
--- NOTE | 2017-12-21 20:23 | RAD ---
AP VIEW CHEST: 12/21/17 HISTORY: Cough. Weight gain. AP view chest is obtained on 12/21/17. Comparison made to previous exam from 12/10/17. AP view chest demonstrates mild pulmonary vascular congestion. No evidence of effusions, pneumonia or pneumothorax seen. IMPRESSION: Pulmonary vascular congestion otherwise unremarkable AP view chest. POS: [facility]
[2017-12-21] MEDS ORDERED: Furosemide 40 MG/4 ML VIAL ONE (20:41)
[2017-12-21 22:00] VITALS: BMI 49.7
[2017-12-21 23:46] LABS: Troponin I 0.019 ng/mL (< 0.028)
[2017-12-22] MEDS ORDERED: Acetaminophen 500 MG TAB PO PRN (02:42)
[2017-12-22] MEDS ORDERED: traZODone HCl 50 MG TAB PO PRN (02:42)
[2017-12-22] MEDS ORDERED: hydrALAZINE 20 MG/ML VIAL SLOW IVP PRN (02:42)
[2017-12-22] MEDS ORDERED: cloNIDine 0.1 MG TAB PO PRN (02:42)
[2017-12-22] MEDS ORDERED: HumaLOG 300 UNITS/3 ML VIAL SC PRN (02:42)
[2017-12-22] MEDS ORDERED: Ondansetron HCl/PF 4 MG/2 ML Vial IVP PRN (02:42)
[2017-12-22] MEDS ORDERED: HYDROcodone/Acetaminophen 5/325 mg Tablet PO PRN (02:42)
[2017-12-22] MEDS ORDERED: Dextrose 50% Abboject 50 ML SYRINGE SLOW IVP PRN (02:42)
[2017-12-22] MEDS ORDERED: Loratadine 10 MG TAB PO PRN (02:42)
[2017-12-22] MEDS ORDERED: Ondansetron ODT 4 MG TAB PO PRN (02:42)
[2017-12-22] MEDS ORDERED: Dextrose 5% in Water 1,000 ML IV PRN (02:42)
[2017-12-22] MEDS ORDERED: Furosemide 40 MG/4 ML VIAL SLOW IVP SCH (02:45)
[2017-12-22] MEDS ORDERED: traZODone HCl 50 MG TAB PO SCH (03:30)
[2017-12-22] MEDS ORDERED: Sodium Chloride 0.9% 10 ML ONE (03:34)
[2017-12-22] MEDS: traMADol HCl 50 MG TAB PO PRN ×2 (03:41→21:25)
[2017-12-22] MEDS: Furosemide 40 MG/4 ML VIAL SLOW IVP SCH ×2 (03:46→14:12)
[2017-12-22 05:25] LABS: Anion Gap 18 mmol/L (10-20); BUN (Urea Nitrogen) 35 mg/dL (8.4-25.7); Calc. Creatinine Clearance 77 mL/min (70-130); Calcium 9.5 mg/dL (7.8-10.44); Carbon Dioxide 23 mmol/L (23-31); Chloride 98 mmol/L (98-107); Estimated GFR-MDRD 34; Glucose 351 mg/dL (80-115); Potassium 3.7 mmol/L (3.5-5.1); Sodium 135 mmol/L (136-145)
[2017-12-22 06:05] LABS: Hemoglobin 15.1 g/dL (14.0-18.0); Lymphocytes 6 % (21-51); MDiff Complete? YES; Mean Corpuscular HGB CONC 34.7 g/dL (32.0-36.0); Mean Corpuscular Hemoglobin 31.5 pg (27.0-31.0); Mean Corpuscular Volume 90.8 fl (80.0-94.0); Mean Platelet Volume 7.5 fL (7.4-10.4); Monocytes 2 % (0-10); Neutrophil 92 % (42-75); PLT Morphology Comment Appears Adequate; Platelet Count 201 thou/uL (130-400)
[2017-12-22] MEDS: HumaLOG 300 UNITS/3 ML VIAL SC PRN ×3 (06:38→17:12)
--- NOTE | 2017-12-22 06:55 | HP ---
DATE OF ADMISSION: 12/22/2017 PRIMARY CARE PROVIDER: Dr. Kashmir Edwards. CHIEF COMPLAINT: Shortness of breath. HISTORY OF PRESENT ILLNESS: This is a 62-year-old male with a significant history of chron ic hypoxemic respiratory failure on chronic oxygen supplementation with 2 liters per minute by nasal cannula at home. The patient was recently admitted to [facility] from 018 through 12/12/2017 for multifactorial dyspnea including acute on chronic hypoxemic respiratory fa ilure as well as chronic obstructive pulmonary disease exacerbation. The patient also with significa nt diastolic heart failure on 40 mg b.i.d. of Lasix. The patient states he was evaluated by [facility] and noted with 3-4 pound weight gain over a 24-hour period of time. The patien t states he has this frequently and has been told by his primary care provider to take extra doses of Lasix for 24-48 hours and to limit fluid intake. The patient states he attempted to explain this to the home healthcare nurse; however, she insistent patient to seek medical attention for the weight g ain. The patient states actually felt fine at home and at baseline respiratory status. The patient denied any change to his chronic medication regimen and states he has been compliant since discharge 12/12/2017. The patient does admit to some increased work of breathing with the change in weather as well as high pollen counts. The patient does receive home health services as stated previously incl uding physical therapy twice weekly. The patient states he has had significant gains in strength and mobility with the physical therapy has been receiving at home. The patient denied any specific ches t pain, fever, chills or productive cough. In the emergency department, the patient underwent genera l evaluation including chest imaging showing pulmonary vascular prominence. BNP was noted 66. The p atient received multiple treatments in the emergency room to include aspirin, Lasix, Solu-Medrol, and azithromycin. The patient was transferred to the telemetry unit for evaluation. PAST MEDICAL HISTORY: 1. Acute on chronic hypoxemic respiratory failure with chronic oxygen supplementation at 2 liters pe r minute nasal cannula. 2. Obstructive sleep apnea with nocturnal CPAP. 3. Coronary artery disease. 4. Morbid obesity. 5. Diastolic congestive heart failure. 6. Chronic obstructive pulmonary disease. 7. Diabetes mellitus type 2, insulin requiring. 8. Chronic kidney disease stage 3. 9. Hypertension. 10. Dyslipidemia. 11. Coronary artery disease status post myocardial infarction with stent placement. 12. Pulmonary hypertension. 13. Peripheral neuropathy. PAST SURGICAL HISTORY: 1. Status post cardiac catheterization. 2. Status post sinus surgery. 3. Status post cardiac stent placement. CURRENT MEDICATIONS: 1. Alendronate 70 mg p.o. q.7 days. 2. Amlodipine 10 mg 1 tab p.o. daily. 3. Enteric-coated aspirin 81 mg p.o. daily. 4. Lipitor 20 mg p.o. at bedtime. 5. BuSpar 5 mg p.o. b.i.d. 6. Clonazepam 0.5 mg p.o. at bedtime. 7. Plavix 75 mg 1 tab p.o. daily. 8. Feosol 325 mg p.o. daily. 9. Prozac 40 mg p.o. daily. 10. Advair Diskus 1 inhalation b.i.d. 11. Lasix 40 mg p.o. b.i.d. 12. Gabapentin 300 mg p.o. t.i.d. 13. Glipizide 10 mg p.o. b.i.d. 14. Hydralazine 25 mg p.o. b.i.d. 15. [place] 5/325 mg 1 tab p.o. b.i.d. p.r.n. 16. Glargine insulin 47 units subcutaneously at bedtime. 17. Humalog 14 units subcutaneously a.c. 18. DuoNeb 3 mL nebulized q.i.d. p.r.n. 19. Isosorbide mononitrate 30 mg p.o. daily. 20. Lisinopril 10 mg p.o. daily. 21. Losartan 25 mg p.o. b.i.d. 22. Singulair 10 mg p.o. daily. 23. Bystolic 5 mg p.o. daily. 24. Protonix 40 mg p.o. daily. 25. MiraLax 17 grams p.o. daily. 26. Potassium chloride 40 mEq p.o. t.i.d. 27. Prednisone 20 mg p.o. daily. 28. Spironolactone 25 mg p.o. daily. 29. Theophylline-24 200 mg p.o. b.i.d. 30. Tramadol 50 mg p.o. b.i.d. p.r.n. pain. 31. Trazodone 200 mg p.o. at bedtime. 32. Incruse Ellipta one inhalation daily. ALLERGIES: LEVAQUIN and TAMSULOSIN. FAMILY HISTORY: Positive for coronary artery disease in father. Mother with stroke. SOCIAL HISTORY: , residing in [place], [place]. Limited mobility due to deconditioning and body habitus. Remote tobacco use. No alcohol or illicit drug use. REVIEW OF SYSTEMS: The following complete review of systems was negative, unless otherwise mentioned in the HPI or below: Constitutional: Weight loss or gain, ability to conduct usual activities. Skin: Rash, itching. Eyes: Double vision, pain. ENT/Mouth: Nose bleeding, neck stiffness, pain, tenderness. Cardiovascular: Palpitations, dyspnea on exertion, orthopnea. Respiratory: Shortness of breath, wheezing, cough, hemoptysis, fever or night sweats. Gastrointestinal: Poor appetite, abdominal pain, heartburn, nausea, vomiting, constipation, or diarr hea. Genitourinary: Urgency, frequency, dysuria, nocturia. Musculoskeletal: Pain, swelling. Neurologic/Psychiatric: Anxiety, depression. Allergy/Immunologic: Skin rash, bleeding tendency. Otherwise negative except as stated per HPI. PHYSICAL EXAMINATION: VITAL SIGNS: On admission blood pressure 162/93, pulse 71, respiratory rate 22, temperature 98.1 deg manuel Fahrenheit, O2 saturation 100% on room air. GENERAL APPEARANCE: This is a 62-year-old male, alert and oriented x3, pleasant, conversan t, in no acute distress. HEENT: Pupils are equal, round, and reactive to light and accommodation. Extraocular muscles are in tact. No scleral icterus, no conjunctival injection. Nares patent. OP is clear. Teeth in fair rep air. NECK: Supple, no cervical adenopathy, no thyromegaly, no carotid bruits, no JVD appreciated. Cervic al spine with full active and passive range of motion. No meningeal signs appreciated. CHEST: Diminished airflow bilaterally. No crackles or rhonchi. Occasional expiratory wheeze. CARDIOVASCULAR: S1 and S2 with distant heart sounds. ABDOMEN: Obese, soft. Landmarks are difficult to palpate due to patient's body habitus. No palpabl e mass. No rebound or guarding noted. EXTREMITIES: Pitting edema to the proximal shins bilaterally. Pulses palpable distally at the dorsa lis pedis, posterior tibial, and popliteal arteries bilaterally. Capillary refill less than 2 second s. NEUROLOGIC: Cranial nerves II-XII are grossly intact. No focal or lateralizing signs appreciated. PERTINENT LABORATORY DATA AND X-RAY FINDINGS: Sodium 136, potassium 3.9, chloride 102, CO2 19, BUN 2 8, creatinine 1.85, estimated GFR 37, glucose 315, calcium 9.3, magnesium 2.0. LFTs within normal li mits. Troponin I negative x3. BNP 66. CBC showed a white blood cell count of 13.7, hemoglobin 15, hematocrit 44, platelet count 203 with 81% neutrophils. Portable chest x-ray dated 12/21/2017 showed pulmonary vascular prominence. EKG dated 12/21/2017 by my interpretation shows a sinus mechanism wi th heart rates in the 90s. Normal R-wave progression noted in the precordial leads. Normal axis. N o acute ST-T wave changes appreciated. ASSESSMENT AND PLAN: 1. Acute on chronic diastolic congestive heart failure exacerbation. Mild overall. We will continu e Lasix 40 mg IV daily. Continue Lasix 40 mg IV x1 dose now. Monitor urine output and daily weight. Last echocardiogram in 03/2017 showed a preserved ejection fraction of 50%-55%. Repeat 2D transtho racic echocardiogram for current ejection fraction. 2. Chronic hypoxemic respiratory failure - stable currently. We will continue oxygen supplementatio n at 2 liters per minute by nasal cannula baseline for the patient. Resume general pulmonary support fatimah measures with Advair Diskus 1 inhalation b.i.d. Continue prednisone 20 mg p.o. daily 3. DuoNeb 3 mL nebulized q.i.d. p.r.n. Continue Singulair 10 mg p.o. daily. 4. Diabetes mellitus type 2, insulin requiring. Continue insulin sliding scale for reflexive covera ge. Continue Glargine insulin 47 units at bedtime. Insulin sliding scale. 5. Hypertension. Resume home antihypertensive regimen and monitor clinical response. 6. Obstructive sleep apnea with nocturnal CPAP. Continue nocturnal CPAP. 7. Prophylaxis. Sequential compression devices while in bed. Protonix 40 mg p.o. daily. Physical Therapy evaluation for functional assessment. 8. Code status is FULL. Surrogate medical decision maker is patient's spouse.
[2017-12-22] MEDS: Spironolactone 25 MG TAB PO SCH (08:15)
[2017-12-22] MEDS: Famotidine 20 MG TAB PO SCH ×2 (08:15→21:23)
[2017-12-22] MEDS: Losartan 25 MG TAB PO SCH ×2 (08:15→21:24)
[2017-12-22] MEDS: Polyethylene Glycol 3350 17 GM Packet PO SCH (08:15)
[2017-12-22] MEDS: Nebivolol HCl 5 MG TAB PO SCH (08:15)
[2017-12-22] MEDS: glipiZIDE 10 MG TAB PO SCH ×2 (08:15→17:12)
[2017-12-22] MEDS: hydrALAZINE 25 MG TAB PO SCH ×2 (08:16→21:24)
[2017-12-22] MEDS: Clopidogrel Bisulfate 75 MG TAB PO SCH (08:16)
[2017-12-22] MEDS: Gabapentin 300 MG CAP PO SCH ×3 (08:16→21:23)
[2017-12-22] MEDS: busPIRone HCl 5 MG TAB PO SCH ×2 (08:16→21:24)
[2017-12-22] MEDS: Lisinopril 10 MG TAB PO SCH (08:16)
[2017-12-22] MEDS: Aspirin 81 mg Enteric Coated Tablet PO SCH (08:16)
[2017-12-22] MEDS: Montelukast Sodium 10 mg Tablet PO SCH (08:16)
[2017-12-22] MEDS: Potassium Chloride 20 MEQ TAB PO SCH ×3 (08:16→21:24)
[2017-12-22] MEDS: Ferrous Sulfate 325 MG TAB PO SCH (08:16)
[2017-12-22] MEDS: predniSONE 20 MG TAB PO SCH (08:16)
[2017-12-22] MEDS: Amlodipine 10 MG TAB PO SCH (08:17)
[2017-12-22] MEDS: FLUoxetine HCl 20 MG CAP PO SCH (08:17)
[2017-12-22] MEDS ORDERED: Non-Formulary Item 1 EACH (Umeclidinium Bromide [Incruse Ellipta] 1 INH) IH SCH (09:00)
[2017-12-22] MEDS: Ipratropium Bromide 2.5 ml Neb NEB SCH ×4 (09:53→23:37)
[2017-12-22] MEDS: Mometasone/Formoterol 120 PUFF INHALER INH SCH ×2 (09:58→19:53)
[2017-12-22] MEDS ORDERED: Atorvastatin Calcium 20 MG TAB PO SCH (21:00)
[2017-12-22] MEDS ORDERED: Insulin Glargine 47 UNITS in Pre-Filled Syringe 1 EACH SC SCH (21:00)
[2017-12-22] MEDS ORDERED: clonazePAM 1 MG TAB PO SCH (21:00)
[2017-12-23] MEDS: Polyethylene Glycol 3350 17 GM Packet PO SCH (00:33)
[2017-12-23] MEDS ORDERED: Sodium Chloride 0.9% 10 ML ONE (04:54)
[2017-12-23] MEDS: Furosemide 40 MG/4 ML VIAL SLOW IVP SCH (06:24)
[2017-12-23] MEDS: HumaLOG 300 UNITS/3 ML VIAL SC PRN (08:33)
[2017-12-23] MEDS: Losartan 25 MG TAB PO SCH (08:33)
[2017-12-23] MEDS: Amlodipine 10 MG TAB PO SCH (08:33)
[2017-12-23] MEDS: Nebivolol HCl 5 MG TAB PO SCH (08:33)
[2017-12-23] MEDS: Clopidogrel Bisulfate 75 MG TAB PO SCH (08:34)
[2017-12-23] MEDS: Potassium Chloride 20 MEQ TAB PO SCH (08:34)
[2017-12-23] MEDS: predniSONE 20 MG TAB PO SCH (08:34)
[2017-12-23] MEDS: Gabapentin 300 MG CAP PO SCH (08:34)
[2017-12-23] MEDS: busPIRone HCl 5 MG TAB PO SCH (08:34)
[2017-12-23] MEDS: hydrALAZINE 25 MG TAB PO SCH (08:34)
[2017-12-23] MEDS: Spironolactone 25 MG TAB PO SCH (08:34)
[2017-12-23] MEDS: Montelukast Sodium 10 mg Tablet PO SCH (08:34)
[2017-12-23] MEDS: FLUoxetine HCl 20 MG CAP PO SCH (08:34)
[2017-12-23] MEDS: glipiZIDE 10 MG TAB PO SCH (08:35)
[2017-12-23] MEDS: Ferrous Sulfate 325 MG TAB PO SCH (08:35)
[2017-12-23] MEDS: Famotidine 20 MG TAB PO SCH (08:35)
[2017-12-23] MEDS: Lisinopril 10 MG TAB PO SCH (08:35)
[2017-12-23] MEDS: Aspirin 81 mg Enteric Coated Tablet PO SCH (08:35)
[2017-12-23] MEDS: Ipratropium Bromide 2.5 ml Neb NEB SCH (08:52)
[2017-12-23] MEDS: Mometasone/Formoterol 120 PUFF INHALER INH SCH (09:00)
[2017-12-23 09:18] VITALS: TEMP 97.6
[2017-12-23 11:31] VITALS: BP 106/60
--- NOTE | 2017-12-23 11:50 | PDOC.EVN ---
Event Note - Event Note Event Note: DC SUMMARY #[id number]
--- NOTE | 2017-12-23 21:16 | DIS ---
DATE OF ADMISSION: 12/22/2017 DATE OF DISCHARGE: 12/23/2017 ADMITTING DIAGNOSES: Includes decompensated heart failure, shortness of breath, obstructive sleep ap saida, coronary artery disease, morbid obesity, congestive heart failure, chronic obstructive pulmonary disease, diabetes mellitus type 2, stage 2 chronic kidney disease, dyslipidemia, and pulmonary hyper tension. DISCHARGE DIAGNOSES: Decompensated heart failure, stable; chronic obstructive pulmonary disease, sta ble; coronary artery disease, stable; morbid obesity; diabetes mellitus, type 2; chronic kidney disea se, stage 3; hypoxia, stable; dyslipidemia, stable; pulmonary hypertension, stable. HOSPITAL COURSE: This is a 62-year-old male, who was admitted for volume overload. The patient stat es that he normally doubles up on his diuretics to help out with shortness of breath; however, the [facility] practitioner who is evaluating him at home stated that this was inappropriate and that he should go to the hospital. The patient was admitted to internal medicine team, followed by internal medicin e throughout his hospital duration and stay. The patient had a chest x-ray done as well as an echoca rdiogram performed. The echo showed an ejection fraction of 50-55% with the left atrium that was dil ated; however, the rest of the echo was relatively normal. The patient at point in time of discharge , denies any nausea, vomiting, diarrhea, constipation, chest pain, fevers, or shortness of breath. T he patient's blood pressure was stable, O2 saturation was 92% on room air. The patient uses home oxy gen at home. The patient was heavily advised to pursue weight loss as aggressively as possible as if he is age of 62 and BMI is at 50. Given the fact that he has a history of CAD, dysfunctional heart, diabetes mellitus, hypertension, and stage 3 CKD, he is a very high risk for dialysis and further pr ogression of his heart. Weight loss was advised and the patient was also advised to discuss with his primary care physicians to have a referral to cardiology and nephrology outpatient. The patient at point in time of discharging again was stable, stated that he felt that he was back to baseline and s hortness of breath was much improved, and stated that he would like to go home. was present at bedside. DISPOSITION: Home. MEDICATIONS: Resume home medications. The patient is to double up on Lasix to try and target a spec ific dry weight, his basal weight in case he gains more than 4 pounds in a 24-hour period. DIET: Low fat, low calorie, high fiber, low salt diet. CONDITION: Stable. PROGNOSIS: Guarded. FOLLOWUP: With PCP within 1 week. ACTIVITY: As tolerated with assistance as appropriate. Once again, case and plan discussed with the patient and at length. They understand and agree w ith this plan.
== END 2017-12-23 13:07 | disposition home or self-care (01) | DRG 291 ==
LOC: ERS 16:57 → 2NO 20:37
PROVIDERS: ADMIT Family Medicine; ATTEND Family Medicine
DX: I13.0 Hypertensive heart and chronic kidney disease with heart failure and stage 1 through stage 4 chronic kidney disease, or unspecified chronic kidney disease (principal); I50.33 Acute on chronic diastolic (congestive) heart failure; J96.11 Chronic respiratory failure with hypoxia; Z68.43 Body mass index [BMI] 50.0-59.9, adult; Z79.4 Long term (current) use of insulin; G47.33 Obstructive sleep apnea (adult) (pediatric); Z99.81 Dependence on supplemental oxygen; J44.9 Chronic obstructive pulmonary disease, unspecified; I25.10 Atherosclerotic heart disease of native coronary artery without angina pectoris; E11.22 Type 2 diabetes mellitus with diabetic chronic kidney disease; N18.3 Chronic kidney disease, stage 3 (moderate); E78.5 Hyperlipidemia, unspecified; I25.2 Old myocardial infarction; I27.20 Pulmonary hypertension, unspecified; E11.42 Type 2 diabetes mellitus with diabetic polyneuropathy; E66.01 Morbid (severe) obesity due to excess calories; L89.151 Pressure ulcer of sacral region, stage 1; Z85.828 Personal history of other malignant neoplasm of skin
CPT/HCPCS: 36415; 36416; 71045; 80048; 80053; 81003; 82553; 83735; 83880; 84484; 85007; 85025; 85027; 93005; 93306; 94640; 94664; 96374; 96375; A4216; J1940; J2930; J7506; J7644

== ENCOUNTER 2017-12-28 23:05 | Inpatient (IN) | payer MEDICARE, MEDICAID ==
[2017-12-28 23:34] LABS: #Lymphocytes 1.2 thou/uL (1.20-3.40); #Neutrophils 8.5 thou/uL (1.40-6.50); %Basophils 0.1 % (0.0-1.0); %Eosinophils 0.3 % (0.0-10.0); %Lymphocytes 11.1 % (21.0-51.0); %Monocytes 9.4 % (0.0-10.0); Hemoglobin 15.3 g/dL (14.0-18.0); Mean Corpuscular HGB CONC 33.9 g/dL (32.0-36.0); Mean Corpuscular Hemoglobin 30.8 pg (27.0-31.0); Mean Corpuscular Volume 90.8 fl (80.0-94.0); Mean Platelet Volume 7.6 fL (7.4-10.4); Platelet Count 224 thou/uL (130-400); Red Blood Cell (RBC) Count 4.98 mill/uL (4.70-6.10); White Blood Cell (WBC) Count 10.7 thou/uL (4.8-10.8)
[2017-12-28 23:59] LABS: CKMB 2.3 ng/mL (0-6.6); Troponin I Less than 0.010 ng/mL (< 0.028)
[2017-12-29 00:02] LABS: ALT (SGPT) 18 U/L (8-55); AST (SGOT) 12 U/L (5-34); Albumin 4.3 g/dL (3.4-4.8); Alkaline Phosphatase 86 U/L (40-150); Anion Gap 20 mmol/L (10-20); BUN (Urea Nitrogen) 92 mg/dL (8.4-25.7); Calc. Creatinine Clearance 0 mL/min (70-130); Calcium 10.4 mg/dL (7.8-10.44); Carbon Dioxide 26 mmol/L (23-31); Chloride 91 mmol/L (98-107); Estimated GFR-MDRD 19; Globulin 2.8 g/dL (2.4-3.5); Glucose 426 mg/dL (80-115); Protein, Total 7.1 g/dL (5.8-8.1); Sodium 132 mmol/L (136-145)
[2017-12-29] MEDS ORDERED: Insulin Regular 300 UNITS/3 ML VIAL ONE (00:19)
[2017-12-29 00:47] LABS: Bilirubin, Total 0.5 mg/dL (0.2-1.2)
[2017-12-29] MEDS ORDERED: Dextrose 5% in Water 1,000 ML IV PRN (02:14)
[2017-12-29] MEDS ORDERED: Senokot 8.6 MG TAB PO PRN (02:14)
[2017-12-29] MEDS ORDERED: Milk Of Magnesia 30 ML UDCUP PO PRN (02:14)
[2017-12-29] MEDS ORDERED: HumaLOG 300 UNITS/3 ML VIAL SC PRN (02:14)
[2017-12-29] MEDS ORDERED: Mag-Al 1200 mg/1200 mg/30 ML UDCUP PO PRN (02:14)
[2017-12-29] MEDS ORDERED: Loperamide HCl 2 MG CAP PO PRN (02:14)
[2017-12-29] MEDS ORDERED: Acetaminophen 325 MG TAB PO PRN (02:14)
[2017-12-29] MEDS ORDERED: Ondansetron ODT 4 MG TAB PO PRN (02:14)
[2017-12-29] MEDS ORDERED: Dextrose 50% Abboject 50 ML SYRINGE SLOW IVP PRN (02:14)
[2017-12-29] MEDS ORDERED: Ondansetron HCl/PF 4 MG/2 ML Vial IVP PRN (02:14)
[2017-12-29 02:19] VITALS: BMI 49.5
[2017-12-29] MEDS ORDERED: traMADol HCl 50 MG TAB PO PRN (02:27)
[2017-12-29] MEDS ORDERED: traZODone HCl 50 MG TAB PO PRN (02:27)
[2017-12-29] MEDS ORDERED: INSULIN LISPRO 14 UNIT SQ PRN (02:27)
[2017-12-29] MEDS: Sodium Chloride 0.9% 1,000 ML IV SCH ×2 (02:41→16:41)
--- NOTE | 2017-12-29 03:13 | HP ---
PRIMARY CARE PHYSICIAN: Kashmir Edwards D.O. REASON FOR ADMISSION: Acute kidney failure. HISTORY OF PRESENT ILLNESS: A 62-year-old male who has underlying history of COPD, asthma as well as obstructive sleep apnea on CPAP, who presented to emergency room with a complaint of generalized abd ominal discomfort. The patient was having generalized weakness. The patient was not feeling good by himself. The patient also reported that he was seeing things which were not there. He was feeling dizziness. He denies any fall. He denies any trauma. He denies any fever or chills. He denies any nausea, vomiting, diarrhea. He denies any pain anywhere in his body. Today in the emergency room, patient had routine blood test, which showed creatinine 3.35. His previ ous creatinine was 2.01. This patient was recently admitted in our hospital on 12/22/2017 and he was discharged home on 12/23/2017. After discharge, the patient came to emergency room on 12/25/2017 an d again today on 12/29/2017. ER physician decided to keep this patient in hospital for acute kidney failure. This patient already has chronic kidney disease stage 3. REVIEW OF SYSTEMS: The following complete review of systems was negative, unless otherwise mentioned in the HPI or below: Constitutional: Weight loss or gain, ability to conduct usual activities. Sk in: Rash, itching. Eyes: Double vision, pain. ENT/Mouth: Nose bleeding, neck stiffness, pain, ten derness. Cardiovascular: Palpitations, dyspnea on exertion, orthopnea. Respiratory: Shortness of breath, wheezing, cough, hemoptysis, fever or night sweats. Gastrointestinal: Poor appetite, abdomi nal pain, heartburn, nausea, vomiting, constipation, or diarrhea. Genitourinary: Urgency, frequency , dysuria, nocturia. Musculoskeletal: Pain, swelling. Neurologic/Psychiatric: Anxiety, depression . Allergy/Immunologic: Skin rash, bleeding tendency. Please see my HPI for pertinent positive and negative. All other review of systems reviewed and negative except as mentioned in the HPI. CURRENT HOME MEDICATIONS: Fosamax 70 mg every week, amlodipine 10 mg daily, aspirin 81 mg p.o. daily , Lipitor 20 mg p.o. at bedtime, buspirone 5 mg p.o. b.i.d., clonazepam 0.5 mg p.o. at bedtime, Plavi x 75 mg p.o. daily, ferrous sulfate 325 mg p.o. daily, Prozac 40 mg p.o. daily, Advair inhalation b.i .d., Lasix 40 mg p.o. b.i.d., gabapentin 300 mg p.o. t.i.d., Glucotrol 10 mg p.o. b.i.d., hydralazine 25 mg p.o. b.i.d., Lantus insulin 47 units subcu at bedtime, Humalog insulin as per sliding scale, D uoNeb q.4 hourly p.r.n., Imdur 30 mg p.o. daily, lisinopril 10 mg p.o. daily, losartan 25 mg p.o. b.i .d., Singulair 10 mg p.o. daily, MiraLax 17 grams p.o. daily, Bystolic 5 mg p.o. daily, Protonix 40 m g p.o. daily, potassium chloride 20 mEq p.o. daily, Aldactone 25 mg p.o. daily, theophylline 200 mg p .o. daily, tramadol 100 mg p.o. q.6 hourly p.r.n., and Breo Ellipta inhalation daily. PAST MEDICAL HISTORY: Chronic hypoxic respiratory failure on chronic oxygen therapy via nasal cannul a; obstructive sleep apnea, on CPAP machine; coronary artery disease; chronic diastolic heart failure ; COPD/asthma; diabetes type 2, insulin requiring; chronic kidney disease stage 3; morbid obesity; hy pertension; dyslipidemia; coronary artery disease with history of [place] with stent placement; pulmonary hypertension; and peripheral neuropathy. PAST SURGICAL HISTORY: Cardiac catheterization with stent placement, sinus surgery, and LINQ monitor placed in 06/2016. PAST PSYCHIATRIC HISTORY: Anxiety disorder, depression. ALLERGIES: LEVOFLOXACIN and FLOMAX. FAMILY HISTORY: Positive for coronary artery disease to his father and mother had stroke. SOCIAL HISTORY: The patient is . Lives in [place] with his . He has very limited mobility due to physical deconditioning and body habitus. He denies any alcohol or other illicit drug abuse. He smokes occasionally. EMERGENCY ROOM COURSE: The patient is given Novolin R 10 unit, IV fluid 500 mL. PHYSICAL EXAMINATION: VITAL SIGNS: On arrival, blood pressure 124/86, pulse 87, respiratory rate 16, temperature 98.9, sat uration 99% on room air, weight 143.3 kilograms. GENERAL: The patient is currently alert, awake, no obvious acute distress. HEENT: Head: Normocephalic, atraumatic. Eyes: Pupils round, reactive to light. Extraocular muscl e intact. ENT: Oropharynx within normal limit. Moist mucous membranes, no oral lesion, no pharynge al erythema, no exudate. NECK: Supple, short neck. Difficult to assess JVD, no thyromegaly, no carotid bruit. LUNGS: Clear to auscultation without any rhonchi or rales, though, obesity limiting examination. CARDIAC: S1, S2 appears regular. Distant heart sound. No murmur, no gallop, no rub. ABDOMEN: Morbid obesity limiting examination. No peritoneal sign, no guarding, no rigidity, no rebo und, no suprapubic tenderness. BACK: Unremarkable, no CVA tenderness. EXTREMITIES: Upper extremities: Passive movement of all joints are normal. Lower extremities: No edema. Good peripheral pulsation. SKIN: No skin rash. HEMATOLOGICAL: No lymphadenopathy. PSYCHIATRIC: Normal affect. NEUROLOGIC: The patient is moving all 4 limbs. Grossly looking. No focal neurological deficit note d. SIGNIFICANT LABORATORY DATA: CBC: WBC 10.7, hemoglobin 15.3, platelet 224. BMP: Sodium 132, potas sium 5.0, chloride 91, carbon dioxide 26, anion gap 20, BUN 92, creatinine 3.35, glucose 426, calcium 10.4. LFT: AST 12, ALT 18, alkaline phosphatase 86, albumin 4.3, CK-MB 2.3. Troponin I less than 0.010. Ammonia level 23. ASSESSMENT AND PLAN/IMPRESSION: 1. Acute on chronic kidney failure, baseline chronic kidney disease stage 3. The patient clinically appears dehydrated. At this point, we will hold on Lasix therapy as well as lisinopril. We will co ntinue with the gentle IV fluid with NS at 70 mL per hour. We will watch for any fluid overload. We will monitor renal function and avoid nephrotoxin agents. 2. Mild hyponatremia. The patient has received NS at 70 mL per hour and we will repeat BMP tomorrow . 3. Hypertension. We will verify the patient's home medication. Based on the most recent discharge summary, the patient is on amlodipine 10 mg p.o. daily, hydralazine 25 mg p.o. b.i.d., Imdur 30 mg p. o. daily, losartan 25 mg p.o. b.i.d., Bystolic 5 mg p.o. daily. We will adjust blood pressure medica tion based on hemodynamics. 4. Chronic obstructive pulmonary disease. Continue theophylline 200 mg p.o. daily, DuoNeb q.6 hourl y, Dulera two puffs inhalation b.i.d. 5. Anxiety and depression. Continue clonazepam 0.5 mg p.o. at bedtime along with Prozac 40 mg p.o. daily. 6. Coronary artery disease. Continue aspirin 81 mg p.o. daily, Plavix 75 mg p.o. daily, Imdur 30 mg p.o. daily along with other blood pressure medication including losartan and Bystolic. 7. Diabetes type 2. Continue Glucotrol 10 mg p.o. b.i.d. Diabetic diet will be given. Insulin as per sliding scale per protocol. 8. Osteoporosis. Continue Fosamax 70 mg p.o. weekly after discharge. 9. Dyslipidemia. Continue Lipitor 20 mg p.o. at bedtime. 10. Anemia, normocytic, normochromic. Continue ferrous sulfate 325 mg p.o. daily. 11. Chronic obstructive pulmonary disease/asthma. Continue Singulair 10 mg p.o. daily, theophylline 200 mg p.o. daily, DuoNeb therapy q.6 hourly and Dulera two puffs inhalation b.i.d. 12. Deep venous thrombosis prophylaxis, heparin 5000 units subcu t.i.d. 13. Gastrointestinal prophylaxis, Pepcid 20 mg p.o. daily. CODE STATUS: The patient is FULL CODE. The patient's is surrogate decision maker. Disposition plan based on clinical course. We are expecting patient's stay in the hospital more than 2 midnights. Plan of care discussed with the patient in detail in the emergency room.
[2017-12-29 04:12] LABS: Creatinine, Urine 36.29 mg/dL (63-166); Protein, Urine Random Quant Less than 10 mg/dL; Sodium, Urine 34 mmol/L (Not Available)
[2017-12-29 05:05] LABS: #Basophils 0.1 thou/uL (0.0-0.2); #Eosinphils 0.1 thou/uL (0.0-0.7); #Lymphocytes 2.1 thou/uL (1.20-3.40); #Monocytes 1.1 thou/uL (0.11-0.59); #Neutrophils 6.6 thou/uL (1.40-6.50); %Basophils 0.7 % (0.0-1.0); %Eosinophils 1.4 % (0.0-10.0); %Lymphocytes 20.9 % (21.0-51.0); %Monocytes 11.2 % (0.0-10.0); %Neutrophils 65.8 % (42.0-75.0); Hemoglobin 15.1 g/dL (14.0-18.0); Mean Corpuscular HGB CONC 34.9 g/dL (32.0-36.0); Mean Corpuscular Hemoglobin 31.8 pg (27.0-31.0); Mean Corpuscular Volume 91.2 fl (80.0-94.0); Mean Platelet Volume 7.9 fL (7.4-10.4); Platelet Count 203 thou/uL (130-400); RBC Distribution Width 13.9 % (11.5-14.5); Red Blood Cell (RBC) Count 4.76 mill/uL (4.70-6.10)
[2017-12-29 05:41] LABS: ALT (SGPT) 16 U/L (8-55); AST (SGOT) 13 U/L (5-34); Alkaline Phosphatase 76 U/L (40-150); Anion Gap 17 mmol/L (10-20); BUN (Urea Nitrogen) 88 mg/dL (8.4-25.7); Bilirubin, Total 0.4 mg/dL (0.2-1.2); Calc. Creatinine Clearance 53 mL/min (70-130); Calcium 10.1 mg/dL (7.8-10.44); Carbon Dioxide 23 mmol/L (23-31); Chloride 96 mmol/L (98-107); Estimated GFR-MDRD 22; Globulin 2.8 g/dL (2.4-3.5); Glucose 240 mg/dL (80-115); Phosphorus 5.7 mg/dL (2.3-4.7); Potassium 4.1 mmol/L (3.5-5.1); Protein, Total 6.8 g/dL (5.8-8.1); Sodium 132 mmol/L (136-145); Uric Acid 14.9 mg/dL (3.5-7.2)
[2017-12-29] MEDS: Mometasone/Formoterol 120 PUFF INHALER INH SCH ×2 (06:32→19:04)
[2017-12-29] MEDS: HumaLOG 300 UNITS/3 ML VIAL SC PRN (08:50)
[2017-12-29] MEDS: Heparin 5,000 UNITS/ML VIAL SC SCH ×3 (08:51→21:29)
[2017-12-29] MEDS: Nebivolol HCl 5 MG TAB PO SCH (08:51)
[2017-12-29] MEDS: Montelukast Sodium 10 mg Tablet PO SCH (08:51)
[2017-12-29] MEDS: Polyethylene Glycol 3350 17 GM Packet PO SCH (08:51)
[2017-12-29] MEDS: FLUoxetine HCl 20 MG CAP PO SCH (08:51)
[2017-12-29] MEDS: Famotidine 20 MG TAB PO SCH (08:51)
[2017-12-29] MEDS: Clopidogrel Bisulfate 75 MG TAB PO SCH (08:51)
[2017-12-29] MEDS: busPIRone HCl 5 MG TAB PO SCH ×2 (08:52→21:29)
[2017-12-29] MEDS: Aspirin 81 mg Enteric Coated Tablet PO SCH (08:52)
[2017-12-29] MEDS: Gabapentin 300 MG CAP PO SCH ×3 (08:52→21:29)
[2017-12-29] MEDS: Spironolactone 25 MG TAB PO SCH (08:52)
[2017-12-29] MEDS: Amlodipine 10 MG TAB PO SCH (08:52)
[2017-12-29] MEDS: glipiZIDE 10 MG TAB PO SCH ×2 (08:52→17:43)
[2017-12-29] MEDS: Ferrous Sulfate 325 MG TAB PO SCH (08:52)
[2017-12-29] MEDS ORDERED: Non-Formulary Item 1 EACH (Umeclidinium Bromide [Incruse Ellipta] 1 INH) IH SCH (09:00)
[2017-12-29] MEDS ORDERED: Calcium Carbonate 500 MG ChewTAB PO PRN (14:29)
[2017-12-29] MEDS: HYDROcodone/Acetaminophen 5/325 mg Tablet PO PRN (16:33)
[2017-12-29] MEDS: Atorvastatin Calcium 20 MG TAB PO SCH (21:29)
[2017-12-29] MEDS: clonazePAM 0.5 MG TAB PO SCH (21:29)
[2017-12-29] MEDS: Insulin Glargine 47 UNITS in Pre-Filled Syringe 1 EACH SC SCH (21:31)
--- NOTE | 2017-12-30 00:34 | CON ---
DATE OF CONSULTATION: 12/29/2017 CONSULTING PHYSICIAN: Kemar Loja M.D. REQUESTING PHYSICIAN: Mu Pierce M.D. REASON FOR CONSULTATION: Acute on chronic kidney disease. IMPRESSION: 1. Acute on chronic kidney disease. This is likely hemodynamically mediated as well as medication i nduced in the context of poor p.o. intake while patient is on diuretics and GAMALIEL inhibitor. One canno t completely rule out drug-induced nephritis. So, this patient has been in and out of the hospital r ecently. 2. Morbid obesity. 3. Baseline chronic kidney disease, stage 3. PLAN: 1. Hold GAMALIEL inhibitor and diuretics for now. 2. Gentle IV fluid resuscitation. 3. Renally dose all medications and avoid potentially nephrotoxic agents. 4. Further management will be dependent on the clinical course. HISTORY OF PRESENT ILLNESS: History is that of a 62-year-old gentleman, who has been in and out of [facility] recently, presented here again with not feeling well and having some visual hallucinations. On clinical evaluation, the patient noted with elevated creatinine above 3, when the patient's baseli ne creatinine is around 2. Of note, the patient has been on diuretics as well as GAMALIEL inhibitor. The patient denies any nausea, vomiting, diarrhea; however, the patient has not been eating very well. As a result of these findings, a decision has been taken to involve Renal in the management of this c ase. PAST MEDICAL HISTORY: Significant for chronic hypoxic respiratory failure in the context of COPD; ob structive sleep apnea; diastolic heart failure; type 2 diabetes; morbid obesity; chronic kidney disea se, stage 3; hypertension; coronary artery disease. MEDICATIONS: Reviewed as documented on [employer]. ALLERGIES: LEVAQUIN and FLOMAX. FAMILY HISTORY: None significantly related to the presenting illness. SOCIAL HISTORY: The patient is . No alcohol, no tobacco, no illicit drug use. REVIEW OF SYSTEMS: As documented in the body of the history. All the other systems reviewed were fo und not to be significantly related to the presenting illness. LABORATORY INVESTIGATION: On presentation significant for creatinine of 3.35, BUN of 92, sodium 132, blood sugar 426. PHYSICAL EXAMINATION: GENERAL: On examination, the patient was found not to be in any obvious distress, noted with the fol lowing vital signs. VITAL SIGNS: Afebrile with temperature 98.9, pulse 74, respiratory rate 20, O2 sat 93%-97% with bloo d pressure 128/74. HEENT EXAMINATION: Unremarkable. Moist oral mucosa. NECK: Supple, no conjunctival injection, no icterus. CARDIOVASCULAR SYSTEM: First and second heart sounds were heard. RESPIRATORY SYSTEM: Clear to auscultation. DIGESTIVE SYSTEM: Revealed an obese abdomen. EXTREMITIES: No peripheral edema. SKIN EXAMINATION: No new gross rash. LYMPHATICS: No peripheral lymphadenopathy. SUMMARY: A 62-year-old morbidly obese gentleman, who presented here with acute on chronic kidney dis ease. Thank you for this consultation. We will follow with you.
[2017-12-30] MEDS: Mometasone/Formoterol 120 PUFF INHALER INH SCH ×2 (06:43→19:11)
[2017-12-30] MEDS: Sodium Chloride 0.9% 1,000 ML IV SCH (07:50)
[2017-12-30] MEDS: Amlodipine 10 MG TAB PO SCH (09:15)
[2017-12-30] MEDS: glipiZIDE 10 MG TAB PO SCH ×2 (09:15→15:50)
[2017-12-30] MEDS: Gabapentin 300 MG CAP PO SCH ×3 (09:16→21:13)
[2017-12-30] MEDS: Aspirin 81 mg Enteric Coated Tablet PO SCH (09:16)
[2017-12-30] MEDS: busPIRone HCl 5 MG TAB PO SCH ×2 (09:16→21:12)
[2017-12-30] MEDS: FLUoxetine HCl 20 MG CAP PO SCH (09:16)
[2017-12-30] MEDS: Famotidine 20 MG TAB PO SCH (09:16)
[2017-12-30] MEDS: Spironolactone 25 MG TAB PO SCH (09:17)
[2017-12-30] MEDS: Polyethylene Glycol 3350 17 GM Packet PO SCH (09:17)
[2017-12-30] MEDS: Montelukast Sodium 10 mg Tablet PO SCH (09:17)
[2017-12-30] MEDS: Clopidogrel Bisulfate 75 MG TAB PO SCH (09:17)
[2017-12-30] MEDS: Nebivolol HCl 5 MG TAB PO SCH (09:17)
[2017-12-30] MEDS: Heparin 5,000 UNITS/ML VIAL SC SCH ×3 (09:18→21:13)
[2017-12-30] MEDS: HYDROcodone/Acetaminophen 5/325 mg Tablet PO PRN (09:18)
[2017-12-30] MEDS: Ferrous Sulfate 325 MG TAB PO SCH (09:21)
[2017-12-30] MEDS ORDERED: Sodium Chloride 0.9% 1,000 ML IV SCH (17:54)
--- NOTE | 2017-12-30 17:54 | PDOC.PN ---
- Subjective Encounter Start Date: 12/30/17 Encounter Start Time: 17:40 Subjective: f/u for MARY/CKD tx with IVF's and avoidance of nephrotoxic meds. States -: feeling better overall. Appetite ok. Voiding ok. No N/V. - Objective Resuscitation Status: Resuscitation Status FULL:Full Resuscitation MAR Reviewed: Yes Vital Signs & Weight: Vital Signs (12 hours) Temp Pulse Resp BP BP Pulse Ox 12/30/17 12:58 97 16 12/30/17 12:20 98.2 F 85 20 111/63 93 L 12/30/17 09:15 72 132/78 12/30/17 08:10 97.9 F 72 20 132/78 94 L 12/30/17 06:43 71 16 12/30/17 06:40 94 L 12/30/17 06:34 71 16 Weight Weight 316 lb 6.4 oz I&O: 12/29/17 12/30/17 12/31/17 06:59 06:59 06:59 Intake Total 365 1278 Output Total 700 3525 Balance -689 -0222 Result Diagrams: 12/29/17 04:10 12/29/17 04:10 Additional Labs: Accuchecks 12/30/17 12/30/17 12/30/17 16:27 11:29 06:25 POC Glucose 208 H 163 H 84 12/29/17 20:25 POC Glucose 195 H Laboratory Tests 12/28/17 12/28/17 12/29/17 23:22 23:22 04:10 Sodium 132 L BUN 92 H Creatinine 3.35 H Uric Acid 14.9 H Phosphorus 5.7 H Ammonia 23 B-Natriuretic Peptide 12/29/17 04:10 Sodium BUN Creatinine Uric Acid Phosphorus Ammonia B-Natriuretic Peptide 19.0 EKG Reviewed by me: Yes (Tele - SR in 70's) Phys Exam - Physical Examination Constitutional: NAD HEENT: PERRLA, moist MMs, sclera anicteric, oral pharynx no lesions Neck: no nodes, no JVD, supple diminished in bases, mild prolonged exp phase Respiratory: no wheezing, no rhonchi S1, S2 Cardiovascular: RRR, no significant murmur, no rub, gallop Gastrointestinal: soft, non-tender, no distention, positive bowel sounds Musculoskeletal: pulses present, edema present Neurological: normal sensation, moves all 4 limbs Psychiatric: normal affect, A&O x 3 Skin: no rash, normal turgor, cap refill <2 seconds Dx/Plan (1) MARY (acute kidney injury) Code(s): N17.9 - ACUTE KIDNEY FAILURE, UNSPECIFIED Status: Acute Comment: Improved, continue IVF but decrease 50ml/h, serial creatinine, avoid nephrotoxic meds and contrast (2) CKD (chronic kidney disease), stage III Code(s): N18.3 - CHRONIC KIDNEY DISEASE, STAGE 3 (MODERATE) Status: Chronic Comment: See above in #1 (3) Hyponatremia Code(s): E87.1 - HYPO-OSMOLALITY AND HYPONATREMIA Status: Acute Comment: Likely secondary to volume overload in context of MARY, serial monitoring (4) DM type 2 (diabetes mellitus, type 2) Status: Chronic Comment: Continue Glipizide, Glargine and ISS, ADA (5) Hypertension Code(s): I10 - ESSENTIAL (PRIMARY) HYPERTENSION Status: Chronic Qualifiers: Hypertension type: essential hypertension Comment: Continue Bystolic, Amlodipine, Spironolactone and Isosorbide, serial BP monitoring (6) Morbid obesity Code(s): E66.01 - MORBID (SEVERE) OBESITY DUE TO EXCESS CALORIES Status: Chronic Comment: Dietitian consult - Plan PT/OT, geriatric social work professor, respiratory therapy, DVT proph w/SCDs Stable overall -: Decrease IVF's 50ml/h -: Avoid Lisinopril, Losartan and Lasix -: OOB and ambulate -: AM lab: BMP, CBC * .
--- NOTE | 2017-12-30 18:11 | PRG ---
DATE OF SERVICE: 12/30/2017 SUBJECTIVE: Patient seen and examined, feeling better, noted with the following vital signs. PHYSICAL EXAMINATION: VITAL SIGNS: Afebrile, temperature 97.8, pulse 74, respiratory rate 20, O2 sat 92% with blood pressu re 122/72. HEENT: Unremarkable. Moist oral mucosa. NECK: Supple, no conjunctival injection or icterus. CARDIOVASCULAR: First and second heart sounds were heard. RESPIRATORY: Clear to auscultation. DIGESTIVE: Revealed a benign abdomen. EXTREMITIES: No peripheral edema. SKIN: No new gross rash. LYMPHATICS: No peripheral lymphadenopathy. LABORATORY INVESTIGATIONS: None. IMPRESSION: Acute on chronic kidney disease which seems to be improving with conservative measures. PLAN: 1. We will continue current renal supportive measures. 2. Further management will be dependent on the clinical course. 3. We will check this patient's chemistry tomorrow and hopefully there will be evidence of improveme nt.
[2017-12-30] MEDS: HumaLOG 300 UNITS/3 ML VIAL SC PRN (18:32)
[2017-12-30] MEDS: Atorvastatin Calcium 20 MG TAB PO SCH (21:12)
[2017-12-30] MEDS: clonazePAM 0.5 MG TAB PO SCH (21:12)
[2017-12-30] MEDS: Insulin Glargine 47 UNITS in Pre-Filled Syringe 1 EACH SC SCH (21:14)
[2017-12-31 05:52] LABS: Anion Gap 14 mmol/L (10-20); BUN (Urea Nitrogen) 47 mg/dL (8.4-25.7); Calc. Creatinine Clearance 84 mL/min (70-130); Calcium 9.8 mg/dL (7.8-10.44); Carbon Dioxide 29 mmol/L (23-31); Chloride 100 mmol/L (98-107); Estimated GFR-MDRD 38; Glucose 89 mg/dL (80-115); Sodium 140 mmol/L (136-145)
[2017-12-31 05:59] LABS: Potassium 2.7 mmol/L (3.5-5.1)
[2017-12-31 06:03] LABS: Band 1 % (5-11); Eosinophils 5 % (0-10); Hemoglobin 14.6 g/dL (14.0-18.0); Lymphocytes 24 % (21-51); MDiff Complete? YES; Mean Corpuscular HGB CONC 33.1 g/dL (32.0-36.0); Mean Corpuscular Hemoglobin 29.9 pg (27.0-31.0); Mean Corpuscular Volume 90.3 fl (80.0-94.0); Mean Platelet Volume 7.4 fL (7.4-10.4); Monocytes 7 % (0-10); Neutrophil 60 % (42-75); Platelet Count 176 thou/uL (130-400); RBC Distribution Width 13.6 % (11.5-14.5); Reactive Lymphocytes 3 % (0-10); Red Blood Cell (RBC) Count 4.89 mill/uL (4.70-6.10); White Blood Cell (WBC) Count 7.3 thou/uL (4.8-10.8)
[2017-12-31] MEDS: Mometasone/Formoterol 120 PUFF INHALER INH SCH ×2 (06:25→18:53)
[2017-12-31] MEDS: FLUoxetine HCl 20 MG CAP PO SCH (08:30)
[2017-12-31] MEDS: glipiZIDE 10 MG TAB PO SCH ×2 (08:30→17:01)
[2017-12-31] MEDS: Aspirin 81 mg Enteric Coated Tablet PO SCH (08:31)
[2017-12-31] MEDS: Famotidine 20 MG TAB PO SCH (08:31)
[2017-12-31] MEDS: Amlodipine 10 MG TAB PO SCH (08:31)
[2017-12-31] MEDS: Clopidogrel Bisulfate 75 MG TAB PO SCH (08:31)
[2017-12-31] MEDS: Ferrous Sulfate 325 MG TAB PO SCH (08:31)
[2017-12-31] MEDS: Montelukast Sodium 10 mg Tablet PO SCH (08:31)
[2017-12-31] MEDS: Gabapentin 300 MG CAP PO SCH ×3 (08:31→20:55)
[2017-12-31] MEDS: Nebivolol HCl 5 MG TAB PO SCH (08:31)
[2017-12-31] MEDS: busPIRone HCl 5 MG TAB PO SCH ×2 (08:31→20:55)
[2017-12-31] MEDS: Spironolactone 25 MG TAB PO SCH (08:31)
[2017-12-31] MEDS: Polyethylene Glycol 3350 17 GM Packet PO SCH (08:34)
[2017-12-31] MEDS: Heparin 5,000 UNITS/ML VIAL SC SCH ×3 (08:35→20:53)
[2017-12-31] MEDS: HYDROcodone/Acetaminophen 5/325 mg Tablet PO PRN (08:50)
[2017-12-31] MEDS ORDERED: Furosemide 40 MG/4 ML VIAL SLOW IVP SCH (10:45)
[2017-12-31] MEDS ORDERED: Potassium Chloride 20 MEQ TAB PO SCH ×2 (12:15→17:00)
--- NOTE | 2017-12-31 12:35 | PDOC.PN ---
- Subjective Encounter Start Date: 12/31/17 Encounter Start Time: 12:30 Subjective: f/u for MARY/CKD initially managed with IVF's and avoiding GAMALIEL-i/ARB' s -: and Lasix. Overall feeling better. No CP, SOB, fever. - Objective Resuscitation Status: Resuscitation Status FULL:Full Resuscitation Vital Signs & Weight: Vital Signs (12 hours) Temp Pulse Resp BP BP Pulse Ox 12/31/17 11:00 98.9 F 87 17 125/73 94 L 12/31/17 08:31 98.4 F 78 19 135/76 135/76 92 L 12/31/17 06:25 72 12 12/31/17 06:16 97 12/31/17 06:15 72 16 12/31/17 03:46 96.4 F L 77 18 122/82 92 L Weight Weight 316 lb 6.4 oz I&O: 12/30/17 12/31/17 01/01/18 06:59 06:59 06:59 Intake Total 1278 2100 Output Total 3525 1546 Balance -2247 554 Result Diagrams: 12/31/17 04:06 12/31/17 04:06 Additional Labs: Accuchecks 12/31/17 12/31/17 12/30/17 10:39 06:28 20:51 POC Glucose 147 H 91 211 H 12/30/17 16:27 POC Glucose 208 H Laboratory Tests 12/28/17 12/28/17 12/29/17 23:22 23:22 04:10 Sodium 132 L Potassium 5.0 4.1 BUN 92 H Creatinine 3.35 H 2.91 H Uric Acid 14.9 H Phosphorus 5.7 H Ammonia 23 B-Natriuretic Peptide 12/29/17 04:10 Sodium Potassium BUN Creatinine Uric Acid Phosphorus Ammonia B-Natriuretic Peptide 19.0 EKG Reviewed by me: Yes (Tele - SR in 80's) Phys Exam - Physical Examination Constitutional: NAD HEENT: PERRLA, moist MMs, sclera anicteric, oral pharynx no lesions Neck: no nodes, no JVD, supple, full ROM prolonged exp phase Respiratory: no wheezing, no rhonchi, clear to auscultation bilateral S1, S2 Cardiovascular: RRR, no significant murmur, no rub, gallop Gastrointestinal: soft, non-tender, no distention, positive bowel sounds Musculoskeletal: pulses present, edema present Neurological: non-focal, normal sensation, moves all 4 limbs Psychiatric: normal affect, A&O x 3 Skin: normal turgor, cap refill <2 seconds Dx/Plan (1) MARY (acute kidney injury) Code(s): N17.9 - ACUTE KIDNEY FAILURE, UNSPECIFIED Status: Acute Comment: Improved, serial creatinine, avoid nephrotoxic meds and contrast (2) Hypokalemia Code(s): E87.6 - HYPOKALEMIA Status: Acute Comment: KCL 40meq BID, serial monitoring (3) CKD (chronic kidney disease), stage III Code(s): N18.3 - CHRONIC KIDNEY DISEASE, STAGE 3 (MODERATE) Status: Chronic Comment: See above in #1 (4) Hyponatremia Code(s): E87.1 - HYPO-OSMOLALITY AND HYPONATREMIA Status: Acute Comment: Likely secondary to volume overload in context of MARY, serial monitoring (5) DM type 2 (diabetes mellitus, type 2) Status: Chronic Comment: Continue Glipizide, Glargine and ISS, ADA (6) Hypertension Code(s): I10 - ESSENTIAL (PRIMARY) HYPERTENSION Status: Chronic Qualifiers: Hypertension type: essential hypertension Comment: Continue Bystolic, Amlodipine, Spironolactone and Isosorbide, serial BP monitoring (7) Morbid obesity Code(s): E66.01 - MORBID (SEVERE) OBESITY DUE TO EXCESS CALORIES Status: Chronic Comment: Dietitian consult - Plan plan discussed w/ family, PT/OT, case management social worker, out of bed/ambulate Stable overall -: KCL 40meq BID -: Hold Lasix, Lisinopril and Losartan -: Continue ASA and Plavix -: PT for OOB/ambulation * AM lab: BMP * Home in am
[2017-12-31] MEDS: HumaLOG 300 UNITS/3 ML VIAL SC PRN (17:01)
[2017-12-31] MEDS: Insulin Glargine 47 UNITS in Pre-Filled Syringe 1 EACH SC SCH (20:52)
[2017-12-31] MEDS: clonazePAM 0.5 MG TAB PO SCH (20:54)
[2017-12-31] MEDS: Atorvastatin Calcium 20 MG TAB PO SCH (20:55)
--- NOTE | 2017-12-31 22:02 | PRG ---
DATE OF SERVICE: 12/31/2017 SUBJECTIVE: The patient was seen and examined, seems to be doing much better. PHYSICAL EXAMINATION: VITAL SIGNS: Afebrile, temperature 98.7, pulse 80, respiratory rate of 18, O2 sat 93% on 2 liters, b lood pressure 121/65. GENERAL: The patient noted to be wheezing while trying to talk. HEENT: Unremarkable. Moist oral mucosa. CARDIOVASCULAR: First and second heart sounds normal. RESPIRATORY: Reveals some diffuse rhonchi. DIGESTIVE: Revealed an obese abdomen with positive bowel sounds. EXTREMITIES: No peripheral edema. SKIN: No new gross rash. LYMPHATICS: No peripheral lymphadenopathy. LABORATORY INVESTIGATIONS: Showed a potassium of 2.7, creatinine down to 1.83. IMPRESSION: 1. Acute on chronic kidney disease seems to have this reverted back to baseline. 2. Hypokalemia. 3. Respiratory distress. PLAN: 1. Discontinue IV fluid. 2. One time dose of loop diuretic. 3. Continue current renal supportive measures.
[2018-01-01 05:51] LABS: Anion Gap 14 mmol/L (10-20); BUN (Urea Nitrogen) 31 mg/dL (8.4-25.7); Calc. Creatinine Clearance 87 mL/min (70-130); Calcium 9.3 mg/dL (7.8-10.44); Carbon Dioxide 26 mmol/L (23-31); Chloride 103 mmol/L (98-107); Estimated GFR-MDRD 39; Glucose 195 mg/dL (80-115); Sodium 140 mmol/L (136-145)
[2018-01-01 06:08] LABS: Potassium 2.8 mmol/L (3.5-5.1)
[2018-01-01 07:11] VITALS: TEMP 98.1
[2018-01-01] MEDS: Potassium Chloride 20 MEQ TAB PO SCH ×2 (07:11→14:11)
[2018-01-01] MEDS: HYDROcodone/Acetaminophen 5/325 mg Tablet PO PRN ×2 (07:11→15:53)
[2018-01-01] MEDS: glipiZIDE 10 MG TAB PO SCH ×2 (07:11→15:53)
[2018-01-01] MEDS: Mometasone/Formoterol 120 PUFF INHALER INH SCH (08:11)
[2018-01-01] MEDS: Montelukast Sodium 10 mg Tablet PO SCH (09:36)
[2018-01-01] MEDS: Gabapentin 300 MG CAP PO SCH ×2 (09:36→15:53)
[2018-01-01] MEDS: Amlodipine 10 MG TAB PO SCH (09:37)
[2018-01-01] MEDS: Famotidine 20 MG TAB PO SCH (09:37)
[2018-01-01] MEDS: busPIRone HCl 5 MG TAB PO SCH (09:37)
[2018-01-01] MEDS: Aspirin 81 mg Enteric Coated Tablet PO SCH (09:37)
[2018-01-01] MEDS: FLUoxetine HCl 20 MG CAP PO SCH (09:37)
[2018-01-01] MEDS: Heparin 5,000 UNITS/ML VIAL SC SCH ×2 (09:37→16:14)
[2018-01-01] MEDS: Clopidogrel Bisulfate 75 MG TAB PO SCH (09:37)
[2018-01-01] MEDS: Spironolactone 25 MG TAB PO SCH (09:37)
[2018-01-01] MEDS: Ferrous Sulfate 325 MG TAB PO SCH (09:37)
[2018-01-01] MEDS: Nebivolol HCl 5 MG TAB PO SCH (09:39)
[2018-01-01] MEDS: Polyethylene Glycol 3350 17 GM Packet PO SCH (09:40)
[2018-01-01 09:58] VITALS: BP 150/95
--- NOTE | 2018-01-01 12:58 | DIS ---
DATE OF ADMISSION: 12/29/2017 DATE OF DISCHARGE: 01/01/2018 DISCHARGE DIAGNOSES: 1. Acute kidney injury, iatrogenic, resolving. 2. Hypokalemia. 3. Chronic kidney disease, stage 3. 4. Hyponatremia secondary to volume overload, improved. 5. Diabetes mellitus, type 2, insulin requiring. 6. Hypertension, stable. 7. Morbid obesity. 8. Chronic hypoxic respiratory failure on chronic oxygen supplementation. 9. Obstructive sleep apnea, on nocturnal CPAP. CONSULTATIONS: Dr. Kemar Loja with Nephrology Service. PERTINENT LABORATORY AND X-RAY FINDINGS: Sodium ranged between 132-140, potassium ranged between 2.7 -5.0, creatinine ranged between 1.77-3.35. Estimated GFR ranged between 19-39. Uric acid level 14.9 . LFTs within normal limits. Troponin I negative x1. BNP 19. Hemoglobin ranged between 14.6-15.3. A 2D transthoracic echocardiogram dated 12/22/2017 showed ejection fraction of 50%-55%. Left atria l enlargement. HOSPITAL COURSE: The patient was initially admitted after presenting with generalized weakness and d izziness with evidence of acute kidney injury. The patient with longstanding history of chronic kidn ey disease, stage 3, presenting with worsening renal failure, likely secondary to volume depletion an d ongoing Lasix therapy with lisinopril and losartan. The patient was placed on IV fluid hydration w ith discontinuation of nephrotoxic agents. The patient continued to clinically improve with volume r eplacement with serial creatinine showing overall improving values with this intervention. The patie nt was noted with mild metabolic derangement including hyponatremia and hypokalemia, improving with s upplementation as well as IV fluid hydration. The patient was evaluated by the Nephrology Service wi recommendations for adjustment to his spironolactone to 50 mg daily. The patient received ongoing potassium supplementations and was reduced on Lasix to 40 mg q.48 hours. Overall, patient did remai n clinically stable throughout the hospital course, tolerating regular oral intake and voiding approp riately. I have examined the patient on the time of discharge and discussed pertinent laboratory fin dings as well as followup instructions. The patient verbalizes understanding and agreement. We will discharge home on 01/01/2018. DISCHARGE MEDICATIONS: 1. Alendronate 70 mg p.o. q.7 days. 2. Norvasc 10 mg p.o. daily. 3. Enteric-coated aspirin 81 mg p.o. daily. 4. Lipitor 20 mg p.o. at bedtime. 5. BuSpar 5 mg p.o. b.i.d. 6. Clonazepam 0.5 mg p.o. at bedtime. 7. Plavix 75 mg p.o. daily. 8. Ferrous sulfate 325 mg p.o. daily. 9. Prozac 40 mg p.o. daily. 10. Advair Diskus 1 inhalation b.i.d. 11. Lasix 40 mg p.o. q.48 hours. 12. Gabapentin 300 mg p.o. t.i.d. 13. Glipizide 10 mg p.o. b.i.d. 14. Webb 5/325 mg 1 tab p.o. b.i.d. p.r.n. 15. Glargine insulin 47 units subcutaneously at bedtime. 16. Humalog KwikPen 14 units subcutaneously daily with sliding scale. 17. DuoNeb 3 mL nebulized q.i.d. p.r.n. 18. Isosorbide mononitrate 30 mg p.o. daily. 19. Lisinopril 10 mg p.o. daily, hold until Nephrology followup. 20. Losartan 25 mg p.o. b.i.d., hold until Nephrology followup. 21. Singulair 10 mg p.o. daily. 22. Bystolic 5 mg p.o. daily. 23. Protonix 40 mg 1 tab p.o. daily. 24. MiraLax 17 grams p.o. daily. 25. Potassium chloride 40 mEq p.o. t.i.d. 26. Prednisone 10 mg p.o. daily. 27. Aldactone 50 mg p.o. daily. 28. Carlos-24 200 mg p.o. b.i.d. 29. Tramadol 50 mg p.o. b.i.d. p.r.n. 30. Trazodone 200 mg p.o. at bedtime. 31. Incruse Ellipta 62.5 mcg inhaled daily. FOLLOWUP: The patient may follow up with his primary care provider, Dr. Kashmir Edwards, within 7 days of discharge. CONDITION ON DISCHARGE: Stable. ACTIVITY: Ad savi. DIET: Heart healthy and ADA. CODE STATUS: FULL. DISPOSITION: Home, 01/01/2018. Total time in preparing and coordinating discharge is 38 minutes.
--- NOTE | 2018-01-01 15:12 | PRG ---
DATE OF SERVICE: 01/01/2018 SUBJECTIVE: Patient is seen and examined, seems to be doing much better. PHYSICAL EXAMINATION: VITAL SIGNS: Afebrile, temperature 98.1, pulse 86, blood pressure 150/95, respiratory rate 16, O2 sa t 98%. HEENT: Unremarkable with moist oral mucosa. No conjunctival injection or icterus. NECK: Supple. CARDIOVASCULAR: First and second heart sounds were heard. RESPIRATORY: Clear to auscultation. DIGESTIVE: Revealed an obese abdomen. EXTREMITIES: No peripheral edema. SKIN: No new gross rash. LYMPHATICS: No peripheral lymphadenopathy. LABORATORY INVESTIGATIONS: Showed a creatinine of 1.77, potassium 2.8. IMPRESSION: 1. Acute on chronic kidney disease, which seems to have improved. 2. Hypokalemia. PLAN: 1. Replete potassium. 2. Increase the dose of spironolactone. 3. Further management to be dependent on the clinical course.
[2018-01-02] MEDS ORDERED: Spironolactone 100 MG TAB PO SCH (09:00)
== END 2018-01-01 17:00 | disposition home or self-care (01) | DRG 682 ==
LOC: ERS 23:05 → 2NO 12-29 00:23
PROVIDERS: ADMIT Internal Medicine; ATTEND Internal Medicine
DX: N17.9 Acute kidney failure, unspecified (principal); J96.01 Acute respiratory failure with hypoxia; E87.1 Hypo-osmolality and hyponatremia; Z68.42 Body mass index [BMI] 45.0-49.9, adult; I50.32 Chronic diastolic (congestive) heart failure; I13.0 Hypertensive heart and chronic kidney disease with heart failure and stage 1 through stage 4 chronic kidney disease, or unspecified chronic kidney disease; E87.6 Hypokalemia; N18.3 Chronic kidney disease, stage 3 (moderate); E66.01 Morbid (severe) obesity due to excess calories; E11.22 Type 2 diabetes mellitus with diabetic chronic kidney disease; Z79.4 Long term (current) use of insulin; G47.33 Obstructive sleep apnea (adult) (pediatric); Z99.81 Dependence on supplemental oxygen; I25.10 Atherosclerotic heart disease of native coronary artery without angina pectoris; J44.9 Chronic obstructive pulmonary disease, unspecified; I25.2 Old myocardial infarction; Z95.5 Presence of coronary angioplasty implant and graft; E11.42 Type 2 diabetes mellitus with diabetic polyneuropathy; F32.9 Major depressive disorder, single episode, unspecified; F41.9 Anxiety disorder, unspecified; M81.0 Age-related osteoporosis without current pathological fracture; E78.5 Hyperlipidemia, unspecified; D64.9 Anemia, unspecified
CPT/HCPCS: 36415; 36416; 80048; 80053; 82140; 82553; 82570; 83735; 83880; 84100; 84132; 84156; 84300; 84484; 84550; 85007; 85025; 85027; 93005; 94640; 94664; 96360; 99406; A4216; G8978-GP-CJ; G8979-GP-CJ; G8980-GP-CJ; G8987-GO-CJ; G8988-GO-CJ; G8989-GO-CJ; J1644; J1815; J7620

== ENCOUNTER 2018-03-15 12:50 | Outpatient (CLI) | payer MEDICARE, MEDICAID ==
--- NOTE | 2018-03-15 13:28 | RAD ---
CHEST TWO VIEWS: History: Cough. Comparison: 12-21-17 FINDINGS: Cardiac silhouette is unremarkable. Pulmonary vasculature remains slightly engorged. Mediastinum is m idline with anterior chest wall monitoring device. Calcified granulomata are consistent with healed g ranulomatous disease. No confluent airspace consolidation, pneumothorax or pleural fluid. IMPRESSION: 1. Borderline pulmonary vascular congestion, stable. 2. No significant interval change. POS: [facility]
== END 2018-03-15 12:51 | disposition home or self-care (01) ==
LOC: RAD 12:50
PROVIDERS: ATTEND Family Medicine
DX: R05 Cough (principal); R06.2 Wheezing; R09.89 Other specified symptoms and signs involving the circulatory and respiratory systems
CPT/HCPCS: 71046

== ENCOUNTER 2018-07-25 12:35 | Outpatient (CLI) | payer MEDICARE, MEDICAID | END 2018-07-25 12:36 | disposition home or self-care (01) | LOC: EDSTATUS 13:00 | PROVIDERS: ATTEND Family Medicine | DX: E66.01 Morbid (severe) obesity due to excess calories (principal); J44.1 Chronic obstructive pulmonary disease with (acute) exacerbation; R26.2 Difficulty in walking, not elsewhere classified; I50.30 Unspecified diastolic (congestive) heart failure; N18.3 Chronic kidney disease, stage 3 (moderate); E11.22 Type 2 diabetes mellitus with diabetic chronic kidney disease; G89.29 Other chronic pain | CPT/HCPCS: 97139 ×2; G8978; G8979; G8980 ==

== ENCOUNTER 2019-01-15 10:56 | Emergency (ER) | payer MEDICARE, MEDICAID ==
--- NOTE | 2019-01-15 11:53 | RAD ---
3 views left RIBS: 01/15/2019 COMPARISON: None HISTORY: Fall 2 days ago, left rib pain FINDINGS: A Loop recorder overlies the upper left hemithorax. No displaced left-sided rib fracture is evident. IMPRESSION: No displaced left rib fracture.
== END 2019-01-15 13:00 | disposition home or self-care (01) ==
LOC: ERS 10:56
DX: S20.212A Contusion of left front wall of thorax, initial encounter (principal); I11.0 Hypertensive heart disease with heart failure; I50.9 Heart failure, unspecified; E11.9 Type 2 diabetes mellitus without complications; J44.9 Chronic obstructive pulmonary disease, unspecified; F32.9 Major depressive disorder, single episode, unspecified; F17.220 Nicotine dependence, chewing tobacco, uncomplicated; Z79.899 Other long term (current) drug therapy; Z79.82 Long term (current) use of aspirin; W22.8XXA Striking against or struck by other objects, initial encounter

== ENCOUNTER 2019-05-26 12:45 | Emergency (ER) | payer MEDICARE, MEDICAID ==
--- NOTE | 2019-05-26 13:21 | RAD ---
Frontal radiograph chest: 05/26/2019 COMPARISON: 12/21/2017 HISTORY: Cough, chest pain, COPD FINDINGS: Stable increased linear interstitial density with pulmonary hyperinflation. Loop recorder o verlies the mid left chest. No pneumothorax or pleural fluid. No focal consolidation or alveolar edema. IMPRESSION: Stable interstitial prominence and pulmonary hyperinflation, consistent with the provided history of COPD. No acute findings.
[2019-05-26 14:05] LABS: #Eosinphils 0.2 thou/uL (0.0-0.7); #Lymphocytes 1.3 thou/uL (1.20-3.40); #Monocytes 0.5 thou/uL (0.11-0.59); #Neutrophils 8.7 thou/uL (1.40-6.50); %Basophils 0.1 % (0.0-1.0); %Lymphocytes 12.3 % (21.0-51.0); %Monocytes 4.4 % (0.0-10.0); %Neutrophils 81.2 % (42.0-75.0); Hemoglobin 15.8 g/dL (14.0-18.0); Mean Corpuscular HGB CONC 33.8 g/dL (32.0-36.0); Mean Corpuscular Hemoglobin 30.1 pg (27.0-31.0); Mean Corpuscular Volume 89.2 fL (78.0-98.0); Platelet Count 209 thou/uL (130-400); RBC Distribution Width 12.9 % (11.5-14.5); Red Blood Cell (RBC) Count 5.23 mill/uL (4.70-6.10); White Blood Cell (WBC) Count 10.7 thou/uL (4.8-10.8)
[2019-05-26] MEDS ORDERED: methylPREDNISolone Sod Succ/PF 125 MG/2 ML VIAL ONE (14:16)
[2019-05-26 14:32] LABS: ALT (SGPT) 25 U/L (8-55); AST (SGOT) 17 U/L (5-34); Albumin 4.4 g/dL (3.4-4.8); Alkaline Phosphatase 84 U/L (40-110); Anion Gap 17 mmol/L (10-20); BUN (Urea Nitrogen) 27 mg/dL (8.4-25.7); Bilirubin, Total 0.5 mg/dL (0.2-1.2); CK (CPK) 259 U/L (30-200); Calc. Creatinine Clearance 0 mL/min (70-130); Calcium 9.8 mg/dL (7.8-10.44); Carbon Dioxide 23 mmol/L (23-31); Chloride 102 mmol/L (98-107); Estimated GFR-MDRD 39; Globulin 2.9 g/dL (2.4-3.5); Glucose 293 mg/dL (80-115); Potassium 3.9 mmol/L (3.5-5.1); Protein, Total 7.3 g/dL (5.8-8.1); Sodium 138 mmol/L (136-145)
== END 2019-05-26 15:20 | disposition home or self-care (01) ==
LOC: ERS 12:45
DX: J44.1 Chronic obstructive pulmonary disease with (acute) exacerbation (principal); I25.2 Old myocardial infarction; I11.0 Hypertensive heart disease with heart failure; I50.9 Heart failure, unspecified; E11.9 Type 2 diabetes mellitus without complications; J44.9 Chronic obstructive pulmonary disease, unspecified; F32.9 Major depressive disorder, single episode, unspecified; Z87.891 Personal history of nicotine dependence; Z79.899 Other long term (current) drug therapy; Z79.82 Long term (current) use of aspirin; Z85.828 Personal history of other malignant neoplasm of skin; Z79.01 Long term (current) use of anticoagulants; Z79.4 Long term (current) use of insulin; Z79.52 Long term (current) use of systemic steroids
CPT/HCPCS: 71045; 80053; 82550; 83880; 84484; 85025; 93005; 94640; 94760; 96374; J2930; J7620

== ENCOUNTER 2020-01-01 21:34 | Emergency (ER) | payer MEDICARE, OTHER ==
--- NOTE | 2020-01-02 08:07 | RAD ---
FRONTAL RADIOGRAPH CHEST: DATE: 01/01/2020. COMPARISON: 05/26/2019. HISTORY: Shortness of breath. FINDINGS: Stable increased linear interstitial density noted with pulmonary hyperinflation. Stable loop record er overlies the left hilar shadow. No pneumothorax, pleural fluid, focal consolidation, or alveolar edema. IMPRESSION: Stable appearance of the chest. POS: [facility]
== END 2020-01-01 23:05 | disposition home or self-care (01) ==
LOC: ERS 21:34
DX: J44.1 Chronic obstructive pulmonary disease with (acute) exacerbation (principal); I11.0 Hypertensive heart disease with heart failure; I50.9 Heart failure, unspecified; F32.9 Major depressive disorder, single episode, unspecified; Z87.891 Personal history of nicotine dependence; V89.2XXA Person injured in unspecified motor-vehicle accident, traffic, initial encounter
CPT/HCPCS: 71045; 93005

== ENCOUNTER 2020-08-18 15:39 | Inpatient (IN) | payer MEDICARE, MEDICAID ==
--- NOTE | 2020-08-18 16:04 | RAD ---
XR Chest 1 View Portable History: Dyspnea Comparison: Radiograph April 2020 Findings: Loop recording device projects over the left hemithorax. Few foci are scattered scar within the lingula right middle lobe and right lower lobe. No pneumothorax. No effusion. No acute osseous abnormality. Impression: Chronic findings. No acute intrathoracic abnormality.
[2020-08-18] MEDS ORDERED: cefTRIAXone\\ROCEPHIN 1 GM VIAL ONE (16:15)
[2020-08-18] MEDS ORDERED: Azithromycin 500 MG VIAL ONE (16:15)
[2020-08-18 16:35] LABS: PTT 35.2 sec (22.9-36.1)
[2020-08-18 16:36] LABS: #Eosinphils 1.7 thou/uL (0.0-0.7); #Lymphocytes 3.8 thou/uL (1.20-3.40); #Monocytes 0.8 thou/uL (0.11-0.59); #Neutrophils 4.5 thou/uL (1.40-6.50); %Basophils 0.3 % (0.0-1.0); %Lymphocytes 34.5 % (21.0-51.0); %Monocytes 7.6 % (0.0-10.0); %Neutrophils 41.6 % (42.0-75.0); Hemoglobin 16.4 g/dL (14.0-18.0); Mean Corpuscular HGB CONC 31.6 g/dL (32.0-36.0); Mean Corpuscular Hemoglobin 28.7 pg (27.0-31.0); Mean Corpuscular Volume 90.7 fL (78.0-98.0); Mean Platelet Volume 7.4 fL (7.4-10.4); Platelet Count 229 thou/uL (130-400); Prothrombin Time 13.7 sec (12.0-14.7); RBC Distribution Width 13.4 % (11.5-14.5); Red Blood Cell (RBC) Count 5.71 mill/uL (4.70-6.10); White Blood Cell (WBC) Count 10.9 thou/uL (4.8-10.8)
[2020-08-18 16:58] LABS: ALT (SGPT) Less than 7 U/L (8-55); AST (SGOT) 10 U/L (5-34); Albumin 3.9 g/dL (3.4-4.8); Alkaline Phosphatase 98 U/L (40-110); Anion Gap 12 mmol/L (10-20); BUN (Urea Nitrogen) 15 mg/dL (8.4-25.7); Bilirubin, Total 0.4 mg/dL (0.2-1.2); Calc. Creatinine Clearance 0 mL/min (70-130); Calcium 9.4 mg/dL (7.8-10.44); Carbon Dioxide 22 mmol/L (23-31); Chloride 107 mmol/L (98-107); Glucose 148 mg/dL (80-115); Potassium 4.4 mmol/L (3.5-5.1); Protein, Total 6.9 g/dL (5.8-8.1); Sodium 137 mmol/L (136-145)
[2020-08-18 17:18] LABS: SARS-CoV-2 NAA Rapid Test Not Detected (NotDetected)
--- NOTE | 2020-08-18 17:49 | PDOC.HHP ---
Hospitalist HPI - History of Present Illness shortness of breath History of Present Illness: Patient is a 64 year old male with a PMH of ERLIN, CAD, HFpEF and COPD on PRN O2 and BiPAP at home. He follows up with a Care Attendant at [facility]. He presents to the ER complaining of shortness of breath and cough for the past few days. His symptoms have been progressively worsening with withish sputum production. He denies any fever, chills, night sweats or hemoptysis. ED Course: He was hemodynamically unstable on arrival and required volume repletion to stabilize his BP Patient was PLACED on NIV after failing 3 rounds of nebulizer therapy His CXR was without active infiltrates During my encounter with the patient, he had his BIPAP machine on. Vitals were stable on the monitor. His dyspnea was nearly resolved as he was kept comfortable on BIPAP - Exam General - other findings: in mild respiratory distress Eye: anicteric sclera ENT: normocephalic atraumatic Neck: supple, symmetric Heart: RRR, no murmur, no gallops Respiratory: rhonchi, wheezes Gastrointestinal: soft, non-tender, non-distended Extremities: no cyanosis, no clubbing, no edema Neurological: cranial nerve grossly intact Psychiatric: normal affect, normal behavior Hospitalist Results - Labs Result Diagrams: 08/18/20 16:10 08/18/20 16:10 Lab results: WBC 10.9 thou/uL (4.8-10.8) H 08/18/20 16:10 Hgb 16.4 g/dL (14.0-18.0) 08/18/20 16:10 Hct 51.8 % (42.0-52.0) 08/18/20 16:10 MCV 90.7 fL (78.0-98.0) 08/18/20 16:10 Plt Count 229 thou/uL (130-400) 08/18/20 16:10 Neutrophils % 41.6 % (42.0-75.0) L 08/18/20 16:10 ESR Westergren 14 mm/hr (Less than 20) 08/18/20 16:02 Sodium 137 mmol/L (136-145) 08/18/20 16:10 Potassium 4.4 mmol/L (3.5-5.1) 08/18/20 16:10 Chloride 107 mmol/L (98-107) 08/18/20 16:10 Carbon Dioxide 22 mmol/L (23-31) L 08/18/20 16:10 BUN 15 mg/dL (8.4-25.7) 08/18/20 16:10 Creatinine 1.18 mg/dL (0.7-1.3) 08/18/20 16:10 Glucose 148 mg/dL (80-115) H 08/18/20 16:10 Lactic Acid 2.3 mmol/L (0.5-2.2) H 08/18/20 16:10 Calcium 9.4 mg/dL (7.8-10.44) 08/18/20 16:10 Total Bilirubin 0.4 mg/dL (0.2-1.2) 08/18/20 16:10 AST 10 U/L (5-34) 08/18/20 16:10 ALT Less than 7 U/L (8-55) L 08/18/20 16:10 Alkaline Phosphatase 98 U/L (40-110) 08/18/20 16:10 Troponin I Less than 0.010 ng/mL (< 0.028) 08/18/20 16:10 C-Reactive Protein 0.86 mg/dL (= or < 0.5) H 08/18/20 16:02 B-Natriuretic Peptide 22.5 pg/mL (0-100) 08/18/20 16:10 Serum Total Protein 6.9 g/dL (5.8-8.1) 08/18/20 16:10 Albumin 3.9 g/dL (3.4-4.8) 08/18/20 16:10 Hospitalist H&P A/P - Problem (1) Acute and chronic respiratory failure with hypoxia Code(s): J96.21 - ACUTE AND CHRONIC RESPIRATORY FAILURE WITH HYPOXIA Status: Acute (2) CKD (chronic kidney disease), stage III Code(s): N18.3 - CHRONIC KIDNEY DISEASE, STAGE 3 (MODERATE) * DO NOT USE * Status: Chronic (3) COPD exacerbation Code(s): J44.1 - CHRONIC OBSTRUCTIVE PULMONARY DISEASE W (ACUTE) EXACERBATION Status: Chronic (4) DM type 2 (diabetes mellitus, type 2) Status: Chronic (5) Hypertension Code(s): I10 - ESSENTIAL (PRIMARY) HYPERTENSION Status: Chronic Qualifiers: Hypertension type: essential hypertension Qualified Code(s): I10 - Essential (primary) hypertension - Plan Plan: Assessment Patient is a 64 year old male with ERLIN, COPD, diastolic CHF, and CKD s tage III. He is admitted with acute COPD exacerbation. He is currently on BIPAP Acute on chronic respiratory failure COPD exacerbation Lactic acidosis - 2.8 ERLIN CAD Chronic diastolic CHF PLAN: Admit inpatient with telemetry Start systemic corticosteroids along with DuoNebs BIPAP at bedtime I would use ceftriaxone/azithromycin combination instead of levofloxacin since the patient has a hx of torsades de pointes Sputum cultures Repeat lactic acid in 4 hours Resume home regimen: SSRI
[2020-08-18 20:11] LABS: Lactic Acid 3.5 mmol/L (0.5-2.2)
[2020-08-18] MEDS: Insulin Glargine 20 UNITS in Pre-Filled Syringe SC SCH (21:14)
[2020-08-18 21:26] LABS: Lactic Acid 3.2 mmol/L (0.5-2.2)
[2020-08-18] MEDS ORDERED: Cyclobenzaprine 10 MG TAB ONE (22:12)
[2020-08-18] MEDS ORDERED: Benzonatate 100 MG CAP ONE (22:12)
[2020-08-18] MEDS ORDERED: methylPREDNISolone Sod Succ/PF 125 MG/2 ML VIAL ONE (22:12)
[2020-08-18] MEDS ORDERED: clonazePAM 0.5 MG TAB ONE (22:12)
[2020-08-18] MEDS: methylPREDNISolone Sod Succ/PF 125 MG/2 ML VIAL IVP SCH (22:21)
[2020-08-18] MEDS: Cyclobenzaprine 10 MG TAB PO SCH (22:21)
[2020-08-18] MEDS: Benzonatate 100 MG CAP PO SCH (22:21)
[2020-08-18] MEDS: Montelukast Sodium 10 mg Tablet PO SCH (22:21)
[2020-08-18] MEDS: busPIRone HCl 5 MG TAB PO SCH (22:21)
[2020-08-18] MEDS: clonazePAM 0.5 MG TAB PO SCH (22:21)
[2020-08-18 23:35] VITALS: BMI 34.8
[2020-08-18] MEDS ORDERED: Dextrose 50% Abboject 50 ML SYRINGE SLOW IVP PRN (23:52)
[2020-08-18] MEDS ORDERED: Dextrose 5% in Water 1,000 ML IV PRN (23:52)
[2020-08-19] MEDS ORDERED: Guaifenesin DM 100-10/5 ML UDCUP PO PRN ×2 (02:08→02:31)
[2020-08-19] MEDS: HYDROcodone/Acetaminophen 5/325 mg Tablet PO PRN ×3 (02:39→21:34)
[2020-08-19] MEDS: methylPREDNISolone Sod Succ/PF 125 MG/2 ML VIAL IVP SCH ×3 (03:40→21:37)
[2020-08-19] MEDS: HumaLOG 300 UNITS/3 ML VIAL SC PRN ×3 (06:27→18:00)
[2020-08-19] MEDS: Polyethylene Glycol 3350 17 GM Packet PO SCH (10:59)
[2020-08-19] MEDS: FLUoxetine HCl 20 MG CAP PO SCH (11:00)
[2020-08-19] MEDS: Clopidogrel Bisulfate 75 MG TAB PO SCH (11:00)
[2020-08-19] MEDS: Aspirin 81 mg Enteric Coated Tablet PO SCH (11:00)
[2020-08-19] MEDS: Benzonatate 100 MG CAP PO SCH ×3 (11:00→21:33)
[2020-08-19] MEDS: Venlafaxine HCl XR 150 MG CAP PO SCH (11:01)
[2020-08-19] MEDS: Atorvastatin Calcium 20 MG TAB PO SCH (11:01)
[2020-08-19] MEDS: busPIRone HCl 5 MG TAB PO SCH ×2 (11:01→21:33)
[2020-08-19] MEDS: Cyclobenzaprine 10 MG TAB PO SCH ×3 (11:01→21:32)
--- NOTE | 2020-08-19 13:28 | PDOC.HOSPP ---
- Subjective Encounter Date: 08/19/20 Subjective: Patient transitioned from NIV to supplemental O2, currently on 3 L via NC. - Objective Vital Signs & Weight: Vital Signs (12 hours) Temp Pulse Resp BP BP Pulse Ox 08/19/20 11:59 97.6 F 116 H 20 113/64 100 08/19/20 10:52 113 H 20 94 L 08/19/20 10:00 97.9 F 108 H 24 H 134/75 94 L 08/19/20 07:07 98 20 95 08/19/20 04:53 108 H 24 H 110/80 92 L 08/19/20 03:48 98.1 F 24 H 93 L Weight Admit Weight 215 lb 12.8 oz Weight 215 lb 12.8 oz I&O: 08/18/20 08/19/20 08/20/20 06:59 06:59 06:59 Intake Total 720 Output Total 550 Balance 170 Result Diagrams: 08/18/20 16:10 08/18/20 16:10 Additional Labs: Accuchecks 08/19/20 08/19/20 08/18/20 10:53 05:47 23:21 POC Glucose 215 H 196 H 173 H 08/18/20 21:11 POC Glucose 168 H Hospitalist ROS - Medication Medications: Active Medications Generic Name Dose Route Start Last Admin Trade Name Freq PRN Reason Stop Dose Admin Hydrocodone Bitart/Acetaminophen 1 tab 08/19/20 02:25 08/19/20 02:39 Hydrocodone/Acetaminophen 5/325 Mg Tablet PO 1 tab Q4H PRN Administration Pain Albuterol/Ipratropium 3 ml 08/18/20 18:30 08/19/20 10:52 Ipratropium/Albuterol Sulfate 3 Ml Neb NEB 3 ml [id number] MARY Administration Aspirin 81 mg 08/19/20 09:00 08/19/20 11:00 Aspirin 81 Mg Enteric Coated Tablet PO 81 mg DAILY MARY Administration Atorvastatin Calcium 20 mg 08/19/20 09:00 08/19/20 11:01 Atorvastatin Calcium 20 Mg Tab PO 20 mg DAILY MARY Administration Benzonatate 200 mg 08/18/20 21:00 08/19/20 11:00 Benzonatate 100 Mg Cap PO 200 mg TID MARY Administration Buspirone HCl 5 mg 08/18/20 21:00 08/19/20 11:01 Buspirone Hcl 5 Mg Tab PO 5 mg BID MARY Administration Clonazepam 0.5 mg 08/18/20 21:00 08/18/20 22:21 Clonazepam 0.5 Mg Tab PO 0.5 mg HS MARY Administration Clopidogrel Bisulfate 75 mg 08/19/20 09:00 08/19/20 11:00 Clopidogrel Bisulfate 75 Mg Tab PO 75 mg DAILY MARY Administration Cyclobenzaprine HCl 5 mg 08/18/20 21:00 08/19/20 11:01 Cyclobenzaprine 10 Mg Tab PO 5 mg TID MARY Administration Fluoxetine HCl 40 mg 08/19/20 09:00 08/19/20 11:00 Fluoxetine Hcl 20 Mg Cap PO 40 mg DAILY MARY Administration Guaifenesin/Dextromethorphan 15 ml 08/19/20 02:31 08/19/20 02:38 Guaifenesin Dm 100-10/5 Ml Udcup PO 15 ml Q4H PRN Administration Cough Insulin Glargine 20 units/ 0.2 mls @ 0 mls/hr 08/18/20 21:00 08/18/20 21:14 Miscellaneous Medication SC Not Given HS [facility] Insulin Human Lispro 0 units 08/18/20 23:52 08/19/20 10:59 Humalog 300 Units/3 Ml Vial SC 3 unit .MILD SLIDING SCALE PRN Administration Mild Correctional Scale Methylprednisolone Sodium Succinate 125 mg 08/18/20 20:00 08/19/20 03:40 Methylprednisolone Sod Succ/Pf 125 Mg/2 Ml Vial IVP 125 mg 0400,1200,2000 MARY Administration Montelukast Sodium 10 mg 08/18/20 21:00 08/18/20 22:21 Montelukast Sodium 10 Mg Tablet PO 10 mg HS [facility] Administration Pantoprazole Sodium 40 mg 08/19/20 09:00 08/19/20 11:01 Pantoprazole 40 Mg Tab PO 40 mg DAILY MARY Administration Polyethylene Glycol 17 gm 08/19/20 09:00 08/19/20 10:59 Polyethylene Glycol 3350 17 Gm Packet PO 17 gm DAILY MARY Administration Venlafaxine HCl 150 mg 08/19/20 09:00 08/19/20 11:01 Venlafaxine Hcl Xr 150 Mg Cap PO 150 mg DAILY MARY Administration - Exam General Appearance: awake alert General - other findings: Mild respiratory distress Eye: anicteric sclera ENT: normocephalic atraumatic Neck: supple Heart: RRR, no murmur, no gallops, no rubs Respiratory: wheezes Respiratory - other findings: Diminished air movement, b/l. Extremities: no cyanosis, no clubbing, no edema Neurological: cranial nerve grossly intact, normal sensation to touch Musculoskeletal: normal tone, normal strength Psychiatric: normal affect, normal behavior Hosp A/P (1) Acute and chronic respiratory failure with hypoxia Code(s): J96.21 - ACUTE AND CHRONIC RESPIRATORY FAILURE WITH HYPOXIA Status: Acute (2) CKD (chronic kidney disease), stage III Code(s): N18.3 - CHRONIC KIDNEY DISEASE, STAGE 3 (MODERATE) * DO NOT USE * Status: Chronic (3) COPD exacerbation Code(s): J44.1 - CHRONIC OBSTRUCTIVE PULMONARY DISEASE W (ACUTE) EXACERBATION Status: Chronic (4) DM type 2 (diabetes mellitus, type 2) Status: Chronic (5) Hypertension Code(s): I10 - ESSENTIAL (PRIMARY) HYPERTENSION Status: Chronic Qualifiers: Hypertension type: essential hypertension Qualified Code(s): I10 - Essential (primary) hypertension - Plan Assessment Patient is a 64 year old male with ERLIN, COPD, diastolic CHF, and CKD stage III. He is admitted with acute COPD exacerbation. Improving and transitioned from BIPAP to nasal cannula Acute on chronic respiratory failure COPD exacerbation Lactic acidosis - 2.8 ERLIN CAD Chronic diastolic CHF PLAN: Air entry still diminished. I will continue scheduled solumedrol and DuoNeb I will also add mucomyst nebulizer, and chest physiotherapy Continue ceftriaxone and azithromycin. Abx so chosen due to documented hx of torsades de pointes BIPAP at bedtime Follow up sputum cultures Repeat lactic acid today and bolus if needed Continue insulin sliding as patient is on dexamethasone
[2020-08-19] MEDS ORDERED: Iopamidol-370 76% 500 ML 1 ML ONE (14:24)
[2020-08-19 14:25] LABS: Lactic Acid 2.7 mmol/L (0.5-2.2)
[2020-08-19] MEDS: Acetylcysteine 20% 200 MG/ML 30 ML VIAL INH SCH ×2 (14:45→20:38)
--- NOTE | 2020-08-19 15:40 | CT ---
CT ANGIOGRAM THORAX WITH IV CONTRAST AND 3-D RECONSTRUCTIONS CLINICAL INDICATION: Difficulty breathing. Coughing. Masslike consolidation on prior CT exam. COMPARISON: CT thorax on 04/14/2020 FINDINGS: Pulmonary arteries: No filling defects are seen within the central or segmental pulmonary arteries. T here is suboptimal opacification of the subsegmental pulmonary arteries for evaluation of pulmonary emboli at this level. Aorta: Vascular calcifications are seen in thoracic aorta with areas of eccentric atherosclerotic nila que seen in the descending thoracic aorta. Thoracic aorta is normal in caliber without evidence of an aortic dissection. Lungs: Linear densities are now present in the previously noted area of masslike consolidation in the left upper lobe likely related to residual scarring as there is minimal adjacent pleural thickening present. Nodular parenchymal densities in the right lower lobe have resolved. There are re sidual peripherally located linear densities at each lung base and lateral aspect right midlung zone in both the right upper lobe and right middle lobes likely due to mild areas of chronic lung agusto nge and scarring. There are linear mild groundglass densities in the anterolateral aspect of the right upper lobe which is overall nonspecific and could also be attributable to chronic lung changes and associated volume loss. No new area of consolidation or pleural fluid is seen. No discrete pulmonary nodule or mass is identified. There are filling defects are seen within a view lower lobe bronchi bilaterally with mild peribronchi al thickening present which may be related to bronchiolitis. Mediastinum: Vascular calcifications are seen in the coronary arteries. Slight increase in number of mediastinal lymph nodes are seen but there are no enlarged lymph nodes seen by CT size criteria. Thyroid gland: Not imaged on this exam. Osseous structures: Degenerative changes are seen in the spine. Chest wall: There is evidence of gynecomastia similar to prior exam. Upper abdomen: Incomplete imaging of density area within the posterior aspect superior pole right kid caroline is again seen statistically likely representing a cyst. IMPRESSION: 1. Mild peribronchial wall thickening suggesting bronchiolitis. 2. Filling defects within bilateral lower lobe bronchi which may be related to mucous plugging or don ris. 3. Chronic lung changes and areas of volume loss. There are linear densities and pleural thickening i n region of previously noted masslike density in the left upper lobe. Findings on the current study are likely due to residual scarring. 4. No CT evidence for pulmonary embolus involving the central or segmental pulmonary arteries. Subseg mental pulmonary arteries are not well evaluated due to timing of the contrast bolus. 5. Gynecomastia. 6. Incomplete imaging of a low-density lesion in the midportion right kidney. This w as seen on prior exam as well.
[2020-08-19] MEDS: cefTRIAXone\\ROCEPHIN 1 GM in Sodium Chloride 0.9% 100 ML IVPB SCH (18:01)
[2020-08-19] MEDS: Azithromycin 500 MG in Sodium Chloride 0.9% 250 ML 250 ML IVPB SCH (18:04)
[2020-08-19] MEDS: clonazePAM 0.5 MG TAB PO SCH (21:33)
[2020-08-19] MEDS: Montelukast Sodium 10 mg Tablet PO SCH (21:36)
[2020-08-19] MEDS: Insulin Glargine 20 UNITS in Pre-Filled Syringe SC SCH (21:49)
[2020-08-20] MEDS: Acetylcysteine 20% 200 MG/ML 30 ML VIAL INH SCH ×4 (01:23→18:14)
[2020-08-20] MEDS: HYDROcodone/Acetaminophen 5/325 mg Tablet PO PRN ×3 (03:31→17:53)
[2020-08-20] MEDS: methylPREDNISolone Sod Succ/PF 125 MG/2 ML VIAL IVP SCH ×3 (03:33→21:08)
[2020-08-20 11:40] LABS: #Lymphocytes 0.6 thou/uL (1.20-3.40); #Monocytes 0.4 thou/uL (0.11-0.59); #Neutrophils 12.8 thou/uL (1.40-6.50); %Eosinophils 0.1 % (0.0-10.0); %Lymphocytes 4.4 % (21.0-51.0); %Monocytes 3.1 % (0.0-10.0); %Neutrophils 92.4 % (42.0-75.0); Hemoglobin 17.3 g/dL (14.0-18.0); Mean Corpuscular HGB CONC 33.3 g/dL (32.0-36.0); Mean Corpuscular Hemoglobin 29.7 pg (27.0-31.0); Mean Corpuscular Volume 89.2 fL (78.0-98.0); Mean Platelet Volume 7.3 fL (7.4-10.4); Platelet Count 251 thou/uL (130-400); RBC Distribution Width 13.4 % (11.5-14.5); Red Blood Cell (RBC) Count 5.83 mill/uL (4.70-6.10); White Blood Cell (WBC) Count 13.9 thou/uL (4.8-10.8)
[2020-08-20] MEDS: Polyethylene Glycol 3350 17 GM Packet PO SCH (11:45)
[2020-08-20] MEDS: Aspirin 81 mg Enteric Coated Tablet PO SCH (11:45)
[2020-08-20] MEDS: FLUoxetine HCl 20 MG CAP PO SCH (11:45)
[2020-08-20] MEDS: HumaLOG 300 UNITS/3 ML VIAL SC PRN ×3 (11:45→22:09)
[2020-08-20] MEDS: Clopidogrel Bisulfate 75 MG TAB PO SCH (11:46)
[2020-08-20] MEDS: Atorvastatin Calcium 20 MG TAB PO SCH (11:46)
[2020-08-20] MEDS: Venlafaxine HCl XR 150 MG CAP PO SCH (11:46)
[2020-08-20] MEDS: Cyclobenzaprine 10 MG TAB PO SCH ×3 (11:48→21:06)
[2020-08-20] MEDS: Benzonatate 100 MG CAP PO SCH ×3 (11:51→21:07)
[2020-08-20] MEDS: busPIRone HCl 5 MG TAB PO SCH ×2 (11:51→21:07)
[2020-08-20 12:01] LABS: Lactic Acid 2.7 mmol/L (0.5-2.2)
[2020-08-20 12:04] LABS: Anion Gap 18 mmol/L (10-20); BUN (Urea Nitrogen) 20 mg/dL (8.4-25.7); Calc. Creatinine Clearance 88 mL/min (70-130); Calcium 9.5 mg/dL (7.8-10.44); Carbon Dioxide 20 mmol/L (23-31); Chloride 106 mmol/L (98-107); Glucose 181 mg/dL (80-115); Potassium 3.7 mmol/L (3.5-5.1); Sodium 140 mmol/L (136-145)
--- NOTE | 2020-08-20 15:29 | PDOC.HOSPP ---
- Subjective Encounter Date: 08/20/20 Subjective: Audible wheezing. This was shortly after receiving nebulizer therapy. He still looks dyspneic. - Objective Vital Signs & Weight: Vital Signs (12 hours) Temp Pulse Resp BP BP Pulse Ox 08/20/20 14:57 98 20 96 08/20/20 11:54 97.6 F 96 20 143/79 H 98 08/20/20 11:00 101 H 20 95 08/20/20 08:26 103 H 22 H 96 08/20/20 07:50 97.6 F 108 H 18 140/98 H 96 08/20/20 04:58 97.7 F 99 24 H 129/90 92 L 08/20/20 04:00 98.0 F 111 H 24 H 149/73 H 93 L Weight Admit Weight 215 lb 12.8 oz Weight 215 lb 12.8 oz I&O: 08/19/20 08/20/20 08/21/20 06:59 06:59 06:59 Intake Total 720 400 Output Total 550 1000 Balance 170 -600 Result Diagrams: 08/20/20 11:29 08/20/20 11:29 Additional Labs: Accuchecks 08/20/20 08/20/20 08/19/20 10:56 05:56 21:31 POC Glucose 195 H 140 H 137 H 08/19/20 16:38 POC Glucose 150 H Hospitalist ROS - Medication Medications: Active Medications Generic Name Dose Route Start Last Admin Trade Name Freq PRN Reason Stop Dose Admin Hydrocodone Bitart/Acetaminophen 1 tab 08/19/20 02:25 08/20/20 11:46 Hydrocodone/Acetaminophen 5/325 Mg Tablet PO 1 tab Q4H PRN Administration Pain Acetylcysteine 600 mg 08/19/20 13:00 08/20/20 14:57 Acetylcysteine 20% 200 Mg/Ml 30 Ml Vial INH 600 mg [id number] MARY Administration Albuterol/Ipratropium 3 ml 08/18/20 18:30 08/20/20 14:57 Ipratropium/Albuterol Sulfate 3 Ml Neb NEB 3 ml [id number] MARY Administration Aspirin 81 mg 08/19/20 09:00 08/20/20 11:45 Aspirin 81 Mg Enteric Coated Tablet PO 81 mg DAILY MARY Administration Atorvastatin Calcium 20 mg 08/19/20 09:00 08/20/20 11:46 Atorvastatin Calcium 20 Mg Tab PO 20 mg DAILY MARY Administration Benzonatate 200 mg 08/18/20 21:00 08/20/20 11:51 Benzonatate 100 Mg Cap PO 200 mg TID MARY Administration Buspirone HCl 5 mg 08/18/20 21:00 08/20/20 11:51 Buspirone Hcl 5 Mg Tab PO 5 mg BID MARY Administration Clonazepam 0.5 mg 08/18/20 21:00 08/19/20 21:33 Clonazepam 0.5 Mg Tab PO 0.5 mg HS MARY Administration Clopidogrel Bisulfate 75 mg 08/19/20 09:00 08/20/20 11:46 Clopidogrel Bisulfate 75 Mg Tab PO 75 mg DAILY MARY Administration Cyclobenzaprine HCl 5 mg 08/18/20 21:00 08/20/20 11:48 Cyclobenzaprine 10 Mg Tab PO 5 mg TID MARY Administration Fluoxetine HCl 40 mg 08/19/20 09:00 08/20/20 11:45 Fluoxetine Hcl 20 Mg Cap PO 40 mg DAILY MARY Administration Guaifenesin/Dextromethorphan 15 ml 08/19/20 02:31 08/19/20 02:38 Guaifenesin Dm 100-10/5 Ml Udcup PO 15 ml Q4H PRN Administration Cough Azithromycin 500 mg/ Sodium 250 mls @ 250 mls/hr 08/19/20 18:00 08/19/20 18:04 Chloride IVPB 250 mls 1800 MARY Administration Ceftriaxone Sodium 1 gm/ 100 mls @ 200 mls/hr 08/19/20 16:00 08/19/20 18:01 Sodium Chloride IVPB 100 mls 1600 MARY Administration Insulin Glargine 20 units/ 0.2 mls @ 0 mls/hr 08/18/20 21:00 08/19/20 21:49 Miscellaneous Medication SC 0.2 mls HS MARY Administration Insulin Human Lispro 0 units 08/18/20 23:52 08/20/20 11:45 Humalog 300 Units/3 Ml Vial SC 2 unit .MILD SLIDING SCALE PRN Administration Mild Correctional Scale Methylprednisolone Sodium Succinate 125 mg 08/18/20 20:00 08/20/20 11:51 Methylprednisolone Sod Succ/Pf 125 Mg/2 Ml Vial IVP 125 mg 0400,1200,2000 MARY Administration Montelukast Sodium 10 mg 08/18/20 21:00 08/19/20 21:36 Montelukast Sodium 10 Mg Tablet PO 10 mg HS MARY Administration Pantoprazole Sodium 40 mg 08/19/20 09:00 08/20/20 11:46 Pantoprazole 40 Mg Tab PO 40 mg DAILY MARY Administration Polyethylene Glycol 17 gm 08/19/20 09:00 08/20/20 11:45 Polyethylene Glycol 3350 17 Gm Packet PO 17 gm DAILY MARY Administration Sodium Chloride 10 ml 08/19/20 21:00 08/20/20 11:51 Flush - Normal Saline 10 Ml Syringe IVF 10 ml Q12HR MARY Administration Venlafaxine HCl 150 mg 08/19/20 09:00 08/20/20 11:46 Venlafaxine Hcl Xr 150 Mg Cap PO 150 mg DAILY MARY Administration - Exam General - other findings: Dyspnea ENT: normocephalic atraumatic Neck: supple, symmetric Heart: RRR, no murmur, no gallops, no rubs Respiratory: wheezes Respiratory - other findings: Good air entry left upper lung capellan. Air movement diminished in the rest Gastrointestinal: soft, non-tender, non-distended Extremities: no cyanosis, no clubbing, no edema Neurological: cranial nerve grossly intact Psychiatric: normal affect, normal behavior Hosp A/P (1) Acute and chronic respiratory failure with hypoxia Code(s): J96.21 - ACUTE AND CHRONIC RESPIRATORY FAILURE WITH HYPOXIA Status: Acute (2) CKD (chronic kidney disease), stage III Code(s): N18.3 - CHRONIC KIDNEY DISEASE, STAGE 3 (MODERATE) * DO NOT USE * Status: Chronic (3) COPD exacerbation Code(s): J44.1 - CHRONIC OBSTRUCTIVE PULMONARY DISEASE W (ACUTE) EXACERBATION Status: Chronic (4) DM type 2 (diabetes mellitus, type 2) Status: Chronic (5) Hypertension Code(s): I10 - ESSENTIAL (PRIMARY) HYPERTENSION Status: Chronic Qualifiers: Hypertension type: essential hypertension Qualified Code(s): I10 - Essential (primary) hypertension - Plan Assessment Patient is a 64 year old male with ERLIN, COPD, diastolic CHF, and CKD stage III. He is admitted with acute COPD exacerbation. He has been transitioned from BiPAP to nasal cannula. He still requiring 3 L of oxygen. Continues to appear deconditioned and dyspneic. Is also on systemic corticosteroids, nebulizer and Mucomyst. I had ordered chest physiotherapy due to rhonchorous breath sounds and evidence of mucous plugs on CT chest . Acute on chronic respiratory failure COPD exacerbation Lactic acidosis - 2.8 ERLIN CAD Chronic diastolic CHF PLAN: Chest physiotherapy, albuterol/ipratropium nebulizer and Mucomyst I discussed with patient's RN regarding importance of chest physiotherapy Continue systemic corticosteroids and empiric antibiotics I am avoiding quinolones due to documented history of torsade the point We will also give the patient a trial of diuretics and presence of pulmonary edema BIPAP at bedtime Follow-up sputum cultures Continue trending lactic acid Resume home dose of Lunesta for sleep Maalox for abdominal discomfort Continue insulin sliding as patient is on solumedrol
[2020-08-20] MEDS ORDERED: Sodium Chloride 0.9% 500 ML IV SCH (15:45)
[2020-08-20] MEDS ORDERED: Mag-Al 1200 mg/1200 mg/30 ML UDCUP PO SCH (17:00)
[2020-08-20] MEDS ORDERED: Furosemide 20 MG/2 ML VIAL SLOW IVP SCH (17:00)
[2020-08-20 17:10] LABS: Lactic Acid 1.3 mmol/L (0.5-2.2)
[2020-08-20] MEDS: cefTRIAXone\\ROCEPHIN 1 GM in Sodium Chloride 0.9% 100 ML IVPB SCH (17:56)
[2020-08-20] MEDS: Azithromycin 500 MG in Sodium Chloride 0.9% 250 ML 250 ML IVPB SCH (18:35)
[2020-08-20] MEDS: Montelukast Sodium 10 mg Tablet PO SCH (21:07)
[2020-08-20] MEDS: clonazePAM 0.5 MG TAB PO SCH (21:07)
[2020-08-20] MEDS: Amlodipine 5 MG TAB PO SCH (21:07)
[2020-08-20] MEDS: Insulin Glargine 20 UNITS in Pre-Filled Syringe SC SCH (22:11)
[2020-08-21] MEDS: HYDROcodone/Acetaminophen 5/325 mg Tablet PO PRN ×5 (01:10→23:01)
[2020-08-21] MEDS: Acetylcysteine 20% 200 MG/ML 30 ML VIAL INH SCH ×4 (02:08→18:47)
[2020-08-21] MEDS: HumaLOG 300 UNITS/3 ML VIAL SC PRN ×2 (06:14→11:43)
[2020-08-21] MEDS: methylPREDNISolone Sod Succ/PF 125 MG/2 ML VIAL IVP SCH ×3 (07:09→20:14)
[2020-08-21] MEDS: Polyethylene Glycol 3350 17 GM Packet PO SCH (07:11)
[2020-08-21] MEDS: Atorvastatin Calcium 20 MG TAB PO SCH (08:18)
[2020-08-21] MEDS: Aspirin 81 mg Enteric Coated Tablet PO SCH (08:19)
[2020-08-21] MEDS: Clopidogrel Bisulfate 75 MG TAB PO SCH (08:19)
[2020-08-21] MEDS: Cyclobenzaprine 10 MG TAB PO SCH ×3 (08:21→20:15)
[2020-08-21] MEDS: Benzonatate 100 MG CAP PO SCH ×3 (08:21→20:14)
[2020-08-21] MEDS: Venlafaxine HCl XR 150 MG CAP PO SCH (08:23)
[2020-08-21] MEDS: busPIRone HCl 5 MG TAB PO SCH ×2 (08:23→20:14)
[2020-08-21] MEDS: FLUoxetine HCl 20 MG CAP PO SCH (08:24)
[2020-08-21] MEDS: Furosemide 20 MG/2 ML VIAL SLOW IVP SCH (08:24)
[2020-08-21] MEDS ORDERED: Mag-Al 1200 mg/1200 mg/30 ML UDCUP PO SCH (09:00)
--- NOTE | 2020-08-21 10:09 | EKG ---
Test Reason : Blood Pressure : / mmHG Vent. Rate : 093 BPM Atrial Rate : 093 BPM P-R Int : 120 ms QRS Dur : 092 ms QT Int : 366 ms P-R-T Axes : 051 073 126 degrees QTc Int : 455 ms Normal sinus rhythm Low voltage QRS Nonspecific ST and T wave abnormality Abnormal ECG Confirmed by CARMEN CROWDER, VICKY Garcia ([id number]), development editor LATRICIA SWARTZ ([id number]) on 08/21/2020 10:09:21 AM Referred By: Confirmed By:VICKY MORALES MD
--- NOTE | 2020-08-21 12:10 | PDOC.HOSPP ---
- Subjective Encounter Date: 08/21/20 Subjective: Progressing well but slowly. Still has shortness of breath with minimal exertion. Chest physiotherapy has been ordered - Objective Vital Signs & Weight: Vital Signs (12 hours) Temp Pulse Resp BP Pulse Ox 08/21/20 08:11 98 08/21/20 08:00 98 F 100 18 148/86 H 98 08/21/20 04:00 97.3 F L 101 H 16 140/78 94 L 08/21/20 02:06 106 H 18 96 Weight Admit Weight 215 lb 12.8 oz Weight 215 lb 12.8 oz I&O: 08/20/20 08/21/20 08/22/20 06:59 06:59 06:59 Intake Total 400 1496 Output Total 1000 452 Balance -600 1044 Result Diagrams: 08/20/20 11:29 08/20/20 11:29 Additional Labs: Accuchecks 08/21/20 08/21/20 08/20/20 11:19 06:07 16:58 POC Glucose 181 H 173 H 154 H 08/19/20 16:38 POC Glucose 150 H Hospitalist ROS - Medication Medications: Active Medications Generic Name Dose Route Start Last Admin Trade Name Freq PRN Reason Stop Dose Admin Hydrocodone Bitart/Acetaminophen 1 tab 08/19/20 02:25 08/21/20 08:17 Hydrocodone/Acetaminophen 5/325 Mg Tablet PO 1 tab Q4H PRN Administration Pain Acetylcysteine 600 mg 08/19/20 13:00 08/21/20 06:57 Acetylcysteine 20% 200 Mg/Ml 30 Ml Vial INH 600 mg [id number] MARY Administration Albuterol/Ipratropium 3 ml 08/18/20 18:30 08/21/20 06:44 Ipratropium/Albuterol Sulfate 3 Ml Neb NEB 3 ml [id number] MARY Administration Amlodipine Besylate 5 mg 08/20/20 21:00 08/20/20 21:07 Amlodipine 5 Mg Tab PO 5 mg HS MARY Administration Aspirin 81 mg 08/19/20 09:00 08/21/20 08:19 Aspirin 81 Mg Enteric Coated Tablet PO 81 mg DAILY MARY Administration Atorvastatin Calcium 20 mg 08/19/20 09:00 08/21/20 08:18 Atorvastatin Calcium 20 Mg Tab PO 20 mg DAILY MARY Administration Benzonatate 200 mg 08/18/20 21:00 08/21/20 08:21 Benzonatate 100 Mg Cap PO 200 mg TID MARY Administration Buspirone HCl 5 mg 08/18/20 21:00 08/21/20 08:23 Buspirone Hcl 5 Mg Tab PO 5 mg BID MARY Administration Clonazepam 0.5 mg 08/18/20 21:00 08/20/20 21:07 Clonazepam 0.5 Mg Tab PO 0.5 mg HS MARY Administration Clopidogrel Bisulfate 75 mg 08/19/20 09:00 08/21/20 08:19 Clopidogrel Bisulfate 75 Mg Tab PO 75 mg DAILY MARY Administration Cyclobenzaprine HCl 5 mg 08/18/20 21:00 08/21/20 08:21 Cyclobenzaprine 10 Mg Tab PO 5 mg TID MARY Administration Fluoxetine HCl 40 mg 08/19/20 09:00 08/21/20 08:24 Fluoxetine Hcl 20 Mg Cap PO 40 mg DAILY MARY Administration Furosemide 20 mg 08/21/20 09:00 08/21/20 08:24 Furosemide 20 Mg/2 Ml Vial SLOW IVP 20 mg DAILY MARY Administration Guaifenesin/Dextromethorphan 15 ml 08/19/20 02:31 08/19/20 02:38 Guaifenesin Dm 100-10/5 Ml Udcup PO 15 ml Q4H PRN Administration Cough Azithromycin 500 mg/ Sodium 250 mls @ 250 mls/hr 08/19/20 18:00 08/20/20 18:35 Chloride IVPB 250 mls 1800 MARY Administration Ceftriaxone Sodium 1 gm/ 100 mls @ 200 mls/hr 08/19/20 16:00 08/20/20 17:56 Sodium Chloride IVPB 100 mls 1600 MARY Administration Insulin Glargine 20 units/ 0.2 mls @ 0 mls/hr 08/18/20 21:00 08/20/20 22:11 Miscellaneous Medication SC 0.2 mls HS MARY Administration Insulin Human Lispro 0 units 08/18/20 23:52 08/21/20 11:43 Humalog 300 Units/3 Ml Vial SC 2 unit .MILD SLIDING SCALE PRN Administration Mild Correctional Scale Methylprednisolone Sodium Succinate 125 mg 08/18/20 20:00 08/21/20 11:44 Methylprednisolone Sod Succ/Pf 125 Mg/2 Ml Vial IVP 125 mg 0400,1200,2000 MARY Administration Montelukast Sodium 10 mg 08/18/20 21:00 08/20/20 21:07 Montelukast Sodium 10 Mg Tablet PO 10 mg HS MARY Administration Pantoprazole Sodium 40 mg 08/19/20 09:00 08/21/20 08:19 Pantoprazole 40 Mg Tab PO 40 mg DAILY MARY Administration Polyethylene Glycol 17 gm 08/19/20 09:00 08/21/20 07:11 Polyethylene Glycol 3350 17 Gm Packet PO Not Given DAILY MARY Sodium Chloride 10 ml 08/19/20 21:00 08/21/20 08:25 Flush - Normal Saline 10 Ml Syringe IVF 10 ml Q12HR MARY Administration Venlafaxine HCl 150 mg 08/19/20 09:00 08/21/20 08:23 Venlafaxine Hcl Xr 150 Mg Cap PO 150 mg DAILY MARY Administration - Exam General - other findings: Moderate respiratory distress Eye: PERRL ENT: normocephalic atraumatic Heart: RRR, no murmur, no gallops, no rubs Respiratory: wheezes Respiratory - other findings: Diminished air entry Gastrointestinal: soft, non-tender, non-distended Psychiatric: normal affect, normal behavior Hosp A/P (1) Acute and chronic respiratory failure with hypoxia Code(s): J96.21 - ACUTE AND CHRONIC RESPIRATORY FAILURE WITH HYPOXIA Status: Acute (2) CKD (chronic kidney disease), stage III Code(s): N18.3 - CHRONIC KIDNEY DISEASE, STAGE 3 (MODERATE) * DO NOT USE * Status: Chronic (3) COPD exacerbation Code(s): J44.1 - CHRONIC OBSTRUCTIVE PULMONARY DISEASE W (ACUTE) EXACERBATION Status: Chronic (4) DM type 2 (diabetes mellitus, type 2) Status: Chronic (5) Hypertension Code(s): I10 - ESSENTIAL (PRIMARY) HYPERTENSION Status: Chronic Qualifiers: Hypertension type: essential hypertension Qualified Code(s): I10 - Essential (primary) hypertension - Plan Assessment Patient is a 64 year old male with ERLIN, COPD, diastolic CHF, and CKD stage III. He is admitted with acute COPD exacerbation. He has been transitioned from BiPAP to nasal cannula, currently on 2.5 L of oxygen. Continues to appear deconditioned and dyspneic and improving very slowly. I had ordered chest physiotherapy due to rhonchorous breath sounds and evidence of mucous plugs on CT chest Acute on chronic respiratory failure COPD exacerbation Lactic acidosis - 2.8 ERLIN CAD Chronic diastolic CHF IDDM Physical deconditioning PLAN: Lasix trial with 20 mg IV x 1 Continue chest physiotherapy. I will add incentive spirometry today Continue albuterol/ipratropium nebulizer and Mucomyst I discussed plan of care with RT today Continue systemic corticosteroids and empiric antibiotics I am avoiding quinolones due to documented history of torsade the point He has a CPAP at bedtime I will put a case management consult for pulmonary rehab Continue home dose of Lunesta for sleep Continue insulin sliding as patient is on solumedrol
[2020-08-21] MEDS ORDERED: Furosemide 20 MG/2 ML VIAL SLOW IVP SCH (12:15)
[2020-08-21 12:29] LABS: #Lymphocytes 0.7 thou/uL (1.20-3.40); #Monocytes 0.8 thou/uL (0.11-0.59); #Neutrophils 8.5 thou/uL (1.40-6.50); %Basophils 0.3 % (0.0-1.0); %Eosinophils 0.1 % (0.0-10.0); %Monocytes 7.8 % (0.0-10.0); %Neutrophils 84.8 % (42.0-75.0); Hemoglobin 16.4 g/dL (14.0-18.0); Mean Corpuscular HGB CONC 33.5 g/dL (32.0-36.0); Mean Corpuscular Hemoglobin 30.2 pg (27.0-31.0); Mean Corpuscular Volume 90.2 fL (78.0-98.0); Mean Platelet Volume 7.6 fL (7.4-10.4); Platelet Count 219 thou/uL (130-400); RBC Distribution Width 13.4 % (11.5-14.5); Red Blood Cell (RBC) Count 5.42 mill/uL (4.70-6.10); White Blood Cell (WBC) Count 10.1 thou/uL (4.8-10.8)
[2020-08-21] MEDS: cefTRIAXone\\ROCEPHIN 1 GM in Sodium Chloride 0.9% 100 ML IVPB SCH (15:10)
[2020-08-21] MEDS: Azithromycin 500 MG in Sodium Chloride 0.9% 250 ML 250 ML IVPB SCH (17:23)
[2020-08-21] MEDS: Amlodipine 5 MG TAB PO SCH (20:14)
[2020-08-21] MEDS: Insulin Glargine 20 UNITS in Pre-Filled Syringe SC SCH (20:15)
[2020-08-21] MEDS: clonazePAM 0.5 MG TAB PO SCH (20:15)
[2020-08-21] MEDS: Montelukast Sodium 10 mg Tablet PO SCH (20:15)
[2020-08-22] MEDS: Acetylcysteine 20% 200 MG/ML 30 ML VIAL INH SCH ×4 (01:44→18:19)
[2020-08-22] MEDS: methylPREDNISolone Sod Succ/PF 125 MG/2 ML VIAL IVP SCH ×3 (04:48→20:43)
[2020-08-22] MEDS: HumaLOG 300 UNITS/3 ML VIAL SC PRN ×3 (06:14→18:29)
[2020-08-22] MEDS: Atorvastatin Calcium 20 MG TAB PO SCH (09:41)
[2020-08-22] MEDS: Aspirin 81 mg Enteric Coated Tablet PO SCH (09:41)
[2020-08-22] MEDS: Benzonatate 100 MG CAP PO SCH ×3 (09:42→20:44)
[2020-08-22] MEDS: Cyclobenzaprine 10 MG TAB PO SCH ×3 (09:42→20:45)
[2020-08-22] MEDS: busPIRone HCl 5 MG TAB PO SCH ×2 (09:42→20:45)
[2020-08-22] MEDS: Clopidogrel Bisulfate 75 MG TAB PO SCH (09:42)
[2020-08-22] MEDS: FLUoxetine HCl 20 MG CAP PO SCH (09:47)
[2020-08-22] MEDS: Furosemide 20 MG/2 ML VIAL SLOW IVP SCH (09:48)
[2020-08-22] MEDS: Venlafaxine HCl XR 150 MG CAP PO SCH (09:49)
[2020-08-22] MEDS: Polyethylene Glycol 3350 17 GM Packet PO SCH (09:49)
--- NOTE | 2020-08-22 12:06 | PDOC.HOSPP ---
- Subjective Encounter Date: 08/22/20 Subjective: Patient seen resting well in bed. Tolerating minimal exertion like moving in and out of bed. However, when asked to perform incentive spirometry, he starts coughing and becomes short of breath. - Objective Vital Signs & Weight: Vital Signs (12 hours) Temp Pulse Resp BP Pulse Ox 08/22/20 11:15 92 18 08/22/20 10:31 98.1 F 92 18 138/90 100 08/22/20 08:00 97.7 F 97 16 132/74 96 08/22/20 07:11 85 14 08/22/20 04:02 98.0 F 102 H 18 145/84 H 95 08/22/20 01:43 102 H 18 96 Weight Admit Weight 215 lb 12.8 oz Weight 215 lb 12.8 oz I&O: 08/21/20 08/22/20 08/23/20 06:59 06:59 06:59 Intake Total 1496 360 200 Output Total 452 Balance 1044 360 200 Result Diagrams: 08/21/20 12:03 08/20/20 11:29 Additional Labs: Accuchecks 08/22/20 08/22/20 08/21/20 11:11 06:09 20:10 POC Glucose 166 H 174 H 171 H Hospitalist ROS - Medication Medications: Active Medications Generic Name Dose Route Start Last Admin Trade Name Freq PRN Reason Stop Dose Admin Hydrocodone Bitart/Acetaminophen 1 tab 08/19/20 02:25 08/21/20 23:01 Hydrocodone/Acetaminophen 5/325 Mg Tablet PO 1 tab Q4H PRN Administration Pain Acetylcysteine 600 mg 08/19/20 13:00 08/22/20 07:11 Acetylcysteine 20% 200 Mg/Ml 30 Ml Vial INH 600 mg [id number] MARY Administration Albuterol/Ipratropium 3 ml 08/18/20 18:30 08/22/20 11:15 Ipratropium/Albuterol Sulfate 3 Ml Neb NEB 3 ml [id number] MARY Administration Amlodipine Besylate 5 mg 08/20/20 21:00 08/21/20 20:14 Amlodipine 5 Mg Tab PO 5 mg HS MARY Administration Aspirin 81 mg 08/19/20 09:00 08/22/20 09:41 Aspirin 81 Mg Enteric Coated Tablet PO 81 mg DAILY MARY Administration Atorvastatin Calcium 20 mg 08/19/20 09:00 08/22/20 09:41 Atorvastatin Calcium 20 Mg Tab PO 20 mg DAILY MARY Administration Benzonatate 200 mg 08/18/20 21:00 08/22/20 09:42 Benzonatate 100 Mg Cap PO 200 mg TID MARY Administration Buspirone HCl 5 mg 08/18/20 21:00 08/22/20 09:42 Buspirone Hcl 5 Mg Tab PO 5 mg BID MARY Administration Clonazepam 0.5 mg 08/18/20 21:00 08/21/20 20:15 Clonazepam 0.5 Mg Tab PO 0.5 mg HS MARY Administration Clopidogrel Bisulfate 75 mg 08/19/20 09:00 08/22/20 09:42 Clopidogrel Bisulfate 75 Mg Tab PO 75 mg DAILY MARY Administration Cyclobenzaprine HCl 5 mg 08/18/20 21:00 08/22/20 09:42 Cyclobenzaprine 10 Mg Tab PO 5 mg TID MARY Administration Fluoxetine HCl 40 mg 08/19/20 09:00 08/22/20 09:47 Fluoxetine Hcl 20 Mg Cap PO 40 mg DAILY MARY Administration Furosemide 20 mg 08/21/20 09:00 08/22/20 09:48 Furosemide 20 Mg/2 Ml Vial SLOW IVP 20 mg DAILY MARY Administration Guaifenesin/Dextromethorphan 15 ml 08/19/20 02:31 08/19/20 02:38 Guaifenesin Dm 100-10/5 Ml Udcup PO 15 ml Q4H PRN Administration Cough Azithromycin 500 mg/ Sodium 250 mls @ 250 mls/hr 08/19/20 18:00 08/21/20 17:23 Chloride IVPB 250 mls 1800 MARY Administration Ceftriaxone Sodium 1 gm/ 100 mls @ 200 mls/hr 08/19/20 16:00 08/21/20 15:10 Sodium Chloride IVPB 100 mls 1600 MARY Administration Insulin Glargine 20 units/ 0.2 mls @ 0 mls/hr 08/18/20 21:00 08/21/20 20:15 Miscellaneous Medication SC 0.2 mls HS MAYR Administration Insulin Human Lispro 0 units 08/18/20 23:52 08/22/20 06:14 Humalog 300 Units/3 Ml Vial SC 2 unit .MILD SLIDING SCALE PRN Administration Mild Correctional Scale Methylprednisolone Sodium Succinate 125 mg 08/18/20 20:00 08/22/20 04:48 Methylprednisolone Sod Succ/Pf 125 Mg/2 Ml Vial IVP 125 mg 0400,1200,2000 MARY Administration Montelukast Sodium 10 mg 08/18/20 21:00 08/21/20 20:15 Montelukast Sodium 10 Mg Tablet PO 10 mg HS MARY Administration Pantoprazole Sodium 40 mg 08/19/20 09:00 08/22/20 09:49 Pantoprazole 40 Mg Tab PO 40 mg DAILY MARY Administration Polyethylene Glycol 17 gm 08/19/20 09:00 08/22/20 09:49 Polyethylene Glycol 3350 17 Gm Packet PO 17 gm DAILY MARY Administration Sodium Chloride 10 ml 08/19/20 21:00 08/22/20 09:49 Flush - Normal Saline 10 Ml Syringe IVF 10 ml Q12HR MARY Administration Venlafaxine HCl 150 mg 08/19/20 09:00 08/22/20 09:49 Venlafaxine Hcl Xr 150 Mg Cap PO 150 mg DAILY MARY Administration - Exam General - other findings: More comfortable while at rest Eye: anicteric sclera ENT: normocephalic atraumatic Heart: RRR, no murmur, no gallops, no rubs Respiratory: no wheezes, no ronchi Respiratory - other findings: Better air movement throughout, but still diminished Gastrointestinal: soft, non-tender, non-distended Extremities: no clubbing, no edema Psychiatric: normal affect, normal behavior Hosp A/P (1) Acute and chronic respiratory failure with hypoxia Code(s): J96.21 - ACUTE AND CHRONIC RESPIRATORY FAILURE WITH HYPOXIA Status: Acute (2) CKD (chronic kidney disease), stage III Code(s): N18.3 - CHRONIC KIDNEY DISEASE, STAGE 3 (MODERATE) * DO NOT USE * Status: Chronic (3) COPD exacerbation Code(s): J44.1 - CHRONIC OBSTRUCTIVE PULMONARY DISEASE W (ACUTE) EXACERBATION Status: Chronic (4) DM type 2 (diabetes mellitus, type 2) Status: Chronic (5) Hypertension Code(s): I10 - ESSENTIAL (PRIMARY) HYPERTENSION Status: Chronic Qualifiers: Hypertension type: essential hypertension Qualified Code(s): I10 - Essenti al (primary) hypertension - Plan Assessment Patient is a 64 year old male with ERLIN, COPD, diastolic CHF, and CKD stage III. He is admitted with acute COPD exacerbation. He has been transitioned from BiPAP to nasal cannula, currently on 2.5 L of oxygen via [place]. Respiratory status improving but he will need intensive pulmonary rehab as he is unable to successfully use his incentive spirometry. I had ordered chest physiotherapy due to rhonchorous breath sounds and evidence of mucous plugs on CT chest Acute on chronic respiratory failure COPD exacerbation Lactic acidosis - 2.8 ERLIN CAD Chronic diastolic CHF IDDM Physical deconditioning PLAN: Continue IV lasix I will introduce symbicort to his regimen Plan to discharge on LABA/LAMA Continue chest physiotherapy and incentive spirometry today Continue albuterol/ipratropium nebulizer and Mucomyst I am planning to transition him to PO steroid tomorrow Continue antibiotics. I am avoiding quinolones due to documented history of torsade the point Wean down supplemental O2 as tolerated Continue BIPAP at bed time Case management consult for pulmonary rehab Continue home dose of Lunesta for sleep Continue insulin sliding scale and scheduled lantus as patient is on solumedrol
[2020-08-22] MEDS: cefTRIAXone\\ROCEPHIN 1 GM in Sodium Chloride 0.9% 100 ML IVPB SCH (14:59)
[2020-08-22] MEDS: Mometasone 200 MCG/Formoterol 5 MCG 120 PUFF INHALER INH SCH (18:20)
[2020-08-22] MEDS: Azithromycin 500 MG in Sodium Chloride 0.9% 250 ML 250 ML IVPB SCH (18:25)
[2020-08-22] MEDS: Amlodipine 5 MG TAB PO SCH (20:44)
[2020-08-22] MEDS: clonazePAM 0.5 MG TAB PO SCH (20:45)
[2020-08-22] MEDS: Montelukast Sodium 10 mg Tablet PO SCH (20:45)
[2020-08-22] MEDS: Insulin Glargine 20 UNITS in Pre-Filled Syringe SC SCH (20:45)
[2020-08-22] MEDS: HYDROcodone/Acetaminophen 5/325 mg Tablet PO PRN (23:58)
[2020-08-23] MEDS: Acetylcysteine 20% 200 MG/ML 30 ML VIAL INH SCH ×4 (02:11→18:25)
[2020-08-23] MEDS: methylPREDNISolone Sod Succ/PF 125 MG/2 ML VIAL IVP SCH (03:42)
[2020-08-23] MEDS: HumaLOG 300 UNITS/3 ML VIAL SC PRN ×3 (05:10→17:13)
[2020-08-23] MEDS: Atorvastatin Calcium 20 MG TAB PO SCH (08:18)
[2020-08-23] MEDS: Aspirin 81 mg Enteric Coated Tablet PO SCH (08:18)
[2020-08-23] MEDS: Clopidogrel Bisulfate 75 MG TAB PO SCH (08:18)
[2020-08-23] MEDS: Cyclobenzaprine 10 MG TAB PO SCH ×3 (08:18→21:06)
[2020-08-23] MEDS: Benzonatate 100 MG CAP PO SCH ×3 (08:18→21:07)
[2020-08-23] MEDS: busPIRone HCl 5 MG TAB PO SCH ×2 (08:18→21:07)
[2020-08-23] MEDS: FLUoxetine HCl 20 MG CAP PO SCH (08:19)
[2020-08-23] MEDS: Furosemide 20 MG/2 ML VIAL SLOW IVP SCH (08:20)
[2020-08-23] MEDS: Polyethylene Glycol 3350 17 GM Packet PO SCH (08:21)
[2020-08-23] MEDS: Venlafaxine HCl XR 150 MG CAP PO SCH (08:21)
[2020-08-23] MEDS: Mometasone 200 MCG/Formoterol 5 MCG 120 PUFF INHALER INH SCH ×2 (08:46→18:25)
--- NOTE | 2020-08-23 12:27 | PDOC.HOSPP ---
- Subjective Encounter Date: 08/23/20 Subjective: Overnight. Significant improvement over the past 24 hours. Patient is now performing incentive spirometry successfully. He still on 3 L of oxygen via nasal cannula but appears more comfortable in the settings. - Objective Vital Signs & Weight: Vital Signs (12 hours) Temp Pulse Pulse Pulse Resp BP BP 08/23/20 11:31 98.0 F 78 20 08/23/20 09:44 73 86 153/90 H 142/89 H 08/23/20 08:31 08/23/20 08:30 98.3 F 80 18 08/23/20 08:00 08/23/20 07:45 98.3 F 73 16 08/23/20 04:21 78 08/23/20 03:38 98.8 F 81 18 08/23/20 02:19 88 BP BP Pulse Ox Pulse Ox Pulse Ox 08/23/20 11:31 154/89 H 99 08/23/20 09:44 98 95 08/23/20 08:31 94 L 08/23/20 08:30 146/97 H 97 08/23/20 08:00 97 08/23/20 07:45 142/92 H 99 08/23/20 04:21 96 08/23/20 03:38 146/91 H 93 L 08/23/20 02:19 92 L Weight Admit Weight 215 lb 12.8 oz Weight 215 lb 12.8 oz I&O: 08/22/20 08/23/20 08/24/20 06:59 06:59 06:59 Intake Total 360 1050 Output Total 725 Balance 360 325 Result Diagrams: 08/21/20 12:03 08/20/20 11:29 Additional Labs: Accuchecks 08/23/20 08/23/20 08/22/20 10:57 04:54 20:40 POC Glucose 156 H 155 H 158 H 08/22/20 08/21/20 08/20/20 16:22 16:42 21:52 POC Glucose 154 H 150 H 181 H Hospitalist ROS - Medication Medications: Active Medications Generic Name Dose Route Start Last Admin Trade Name Freq PRN Reason Stop Dose Admin Hydrocodone Bitart/Acetaminophen 1 tab 08/19/20 02:25 08/22/20 23:58 Hydrocodone/Acetaminophen 5/325 Mg Tablet PO 1 tab Q4H PRN Administration Pain Acetylcysteine 600 mg 08/19/20 13:00 08/23/20 08:30 Acetylcysteine 20% 200 Mg/Ml 30 Ml Vial INH 600 mg [id number] MARY Administration Albuterol/Ipratropium 3 ml 08/18/20 18:30 08/23/20 11:06 Ipratropium/Albuterol Sulfate 3 Ml Neb NEB Not Given [id number] MARY Amlodipine Besylate 5 mg 08/20/20 21:00 08/22/20 20:44 Amlodipine 5 Mg Tab PO 5 mg HS MARY Administration Aspirin 81 mg 08/19/20 09:00 08/23/20 08:18 Aspirin 81 Mg Enteric Coated Tablet PO 81 mg DAILY MARY Administration Atorvastatin Calcium 20 mg 08/19/20 09:00 08/23/20 08:18 Atorvastatin Calcium 20 Mg Tab PO 20 mg DAILY MARY Administration Benzonatate 200 mg 08/18/20 21:00 08/23/20 08:18 Benzonatate 100 Mg Cap PO 200 mg TID MARY Administration Buspirone HCl 5 mg 08/18/20 21:00 08/23/20 08:18 Buspirone Hcl 5 Mg Tab PO 5 mg BID MARY Administration Clonazepam 0.5 mg 08/18/20 21:00 08/22/20 20:45 Clonazepam 0.5 Mg Tab PO 0.5 mg HS MARY Administration Clopidogrel Bisulfate 75 mg 08/19/20 09:00 08/23/20 08:18 Clopidogrel Bisulfate 75 Mg Tab PO 75 mg DAILY MARY Administration Cyclobenzaprine HCl 5 mg 08/18/20 21:00 08/23/20 08:18 Cyclobenzaprine 10 Mg Tab PO 5 mg TID MARY Administration Fluoxetine HCl 40 mg 08/19/20 09:00 08/23/20 08:19 Fluoxetine Hcl 20 Mg Cap PO 40 mg DAILY MARY Administration Furosemide 20 mg 08/21/20 09:00 08/23/20 08:20 Furosemide 20 Mg/2 Ml Vial SLOW IVP 20 mg DAILY MARY Administration Guaifenesin/Dextromethorphan 15 ml 08/19/20 02:31 08/19/20 02:38 Guaifenesin Dm 100-10/5 Ml Udcup PO 15 ml Q4H PRN Administration Cough Azithromycin 500 mg/ Sodium 250 mls @ 250 mls/hr 08/19/20 18:00 08/22/20 18:25 Chloride IVPB 250 mls 1800 MARY Administration Ceftriaxone Sodium 1 gm/ 100 mls @ 200 mls/hr 08/19/20 16:00 08/22/20 14:59 Sodium Chloride IVPB 100 mls 1600 MARY Administration Insulin Glargine 20 units/ 0.2 mls @ 0 mls/hr 08/18/20 21:00 08/22/20 20:45 Miscellaneous Medication SC 0.2 mls HS MARY Administration Insulin Human Lispro 0 units 08/18/20 23:52 08/23/20 05:10 Humalog 300 Units/3 Ml Vial SC 2 unit .MILD SLIDING SCALE PRN Administration Mild Correctional Scale Methylprednisolone Sodium Succinate 125 mg 08/18/20 20:00 08/23/20 03:42 Methylprednisolone Sod Succ/Pf 125 Mg/2 Ml Vial IVP 125 mg 0400,1200,2000 MARY Administration Mometasone Furoate/Formoterol Fumar 2 puff 08/22/20 18:30 08/23/20 08:46 Mometasone 200 Mcg/Formoterol 5 Mcg 120 Puff Inhaler INH 2 puff BID-RT MARY Administration Montelukast Sodium 10 mg 08/18/20 21:00 08/22/20 20:45 Montelukast Sodium 10 Mg Tablet PO 10 mg HS MARY Administration Pantoprazole Sodium 40 mg 08/19/20 09:00 08/23/20 08:20 Pantoprazole 40 Mg Tab PO 40 mg DAILY MARY Administration Polyethylene Glycol 17 gm 08/19/20 09:00 08/23/20 08:21 Polyethylene Glycol 3350 17 Gm Packet PO Not Given DAILY MARY Sodium Chloride 10 ml 08/19/20 21:00 08/23/20 08:21 Flush - Normal Saline 10 Ml Syringe IVF 10 ml Q12HR MARY Administration Venlafaxine HCl 150 mg 08/19/20 09:00 08/23/20 08:21 Venlafaxine Hcl Xr 150 Mg Cap PO 150 mg DAILY MARY Administration - Exam General - other findings: More alert and awake. Less dyspneic Eye: anicteric sclera ENT: normocephalic atraumatic Neck: supple Heart: RRR, no murmur, no gallops, no rubs Respiratory: no wheezes, no rales, no ronchi Respiratory - other findings: Slightly diminished air movement in both lung capellan Gastrointestinal: soft, non-tender, non-distended Extremities: no clubbing, no edema Neurological: cranial nerve grossly intact Musculoskeletal - other findings: Slightly deconditioned Psychiatric: normal affect, normal behavior Hosp A/P (1) Acute and chronic respiratory failure with hypoxia Code(s): J96.21 - ACUTE AND CHRONIC RESPIRATORY FAILURE WITH HYPOXIA Status: Acute (2) CKD (chronic kidney disease), stage III Code(s): N18.3 - CHRONIC KIDNEY DISEASE, STAGE 3 (MODERATE) * DO NOT USE * Status: Chronic (3) COPD exacerbation Code(s): J44.1 - CHRONIC OBSTRUCTIVE PULMONARY DISEASE W (ACUTE) EXACERBATION Status: Chronic (4) DM type 2 (diabetes mellitus, type 2) Status: Chronic (5) Hypertension Code(s): I10 - ESSENTIAL (PRIMARY) HYPERTENSION Status: Chronic Qualifiers: Hypertension type: essential hypertension Qualified Code(s): I10 - Essential (primary) hypertension - Plan Assessment Patient is a 64 year old male with ERLIN, COPD, diastolic CHF, and CKD stage III. He is admitted with acute COPD exacerbation. He has been transitioned from BiPAP to nasal cannula, currently on 2.5 L of oxygen via NC. Respiratory status improving on chest physiotherapy and incentive spirometry. CT chest had evidence of mucous plugs. I have recommended pulmonary rehab but the patient declined. He has home health services and would like to resume it upon discharge. Would prefer to do additional rehab as outpatient Acute on chronic respiratory failure COPD exacerbation Lactic acidosis - 2.8 ERLIN CAD Chronic diastolic CHF IDDM Physical deconditioning PLAN: Transition from IV to oral steroid Continue duo nebs, antibiotics and Symbicort Continue chest physiotherapy and incentive spirometry today It looks like patient will most likely be discharged on home oxygen Goal will be to wean him to 2 L in the next 24 hours He has a CPAP at home Continue insulin sliding scale and scheduled lantus as patient is on solumedrol
[2020-08-23] MEDS ORDERED: predniSONE 50 MG TAB PO SCH (12:45)
[2020-08-23] MEDS: Azithromycin 500 MG in Sodium Chloride 0.9% 250 ML 250 ML IVPB SCH (17:11)
[2020-08-23] MEDS: cefTRIAXone\\ROCEPHIN 1 GM in Sodium Chloride 0.9% 100 ML IVPB SCH (17:12)
[2020-08-23] MEDS ORDERED: Finasteride 5 MG TAB PO SCH (21:00)
[2020-08-23] MEDS: clonazePAM 0.5 MG TAB PO SCH (21:07)
[2020-08-23] MEDS: Amlodipine 5 MG TAB PO SCH (21:07)
[2020-08-23] MEDS: Montelukast Sodium 10 mg Tablet PO SCH (21:08)
[2020-08-23] MEDS: Insulin Glargine 20 UNITS in Pre-Filled Syringe SC SCH (21:08)
[2020-08-24] MEDS: Acetylcysteine 20% 200 MG/ML 30 ML VIAL INH SCH ×3 (01:31→11:01)
[2020-08-24] MEDS: HYDROcodone/Acetaminophen 5/325 mg Tablet PO PRN (02:35)
[2020-08-24] MEDS: Mometasone 200 MCG/Formoterol 5 MCG 120 PUFF INHALER INH SCH (07:20)
[2020-08-24] MEDS ORDERED: predniSONE 50 MG TAB PO SCH (08:00)
[2020-08-24] MEDS: Atorvastatin Calcium 20 MG TAB PO SCH (08:45)
[2020-08-24] MEDS: Aspirin 81 mg Enteric Coated Tablet PO SCH (08:45)
[2020-08-24] MEDS: Cyclobenzaprine 10 MG TAB PO SCH (08:46)
[2020-08-24] MEDS: Benzonatate 100 MG CAP PO SCH (08:46)
[2020-08-24] MEDS: busPIRone HCl 5 MG TAB PO SCH (08:46)
[2020-08-24] MEDS: Clopidogrel Bisulfate 75 MG TAB PO SCH (08:46)
[2020-08-24] MEDS: Furosemide 20 MG/2 ML VIAL SLOW IVP SCH (08:47)
[2020-08-24] MEDS: FLUoxetine HCl 20 MG CAP PO SCH (08:47)
[2020-08-24] MEDS: Polyethylene Glycol 3350 17 GM Packet PO SCH (08:48)
[2020-08-24] MEDS: Venlafaxine HCl XR 150 MG CAP PO SCH (08:48)
--- NOTE | 2020-08-24 11:39 | PDOC.DS.DS ---
Provider - Provider Date of Admission: 08/18/20 17:31 Date of Discharge: 08/24/20 Admitting Provider: Prince Robin Aguirre MD Primary Care Physician: Kashmir Edwards DO Course - Hospital Course Hospital Course: Patient is a 64 year old male with ERLIN on CPAP at home, COPD, diastolic CHF, and CKD stage III who was admitted with acute COPD exacerbation. He required BiPAP on admission and has been successfully transitioned to nasal cannula, currently on 2 L of oxygen via NC. He is maintaining O2 saturation above 90%. CT chest had evidence of mucous plugs, no pulmonary embolism. His respiratory status improved on chest physiotherapy and incentive spirometry. I have recommended pulmonary rehab but the patient declined. He has home health services and would like to resume it upon discharge. Would prefer to do additional rehab as outpatient. He will be discharged on supplemental O2, prolonged steroid, and LABA/LAMA for chronic maintenance of COPD. - Labs Lab Results: 08/21/20 12:03 08/20/20 11:29 Microbiology - Entire Visit 08/18/20 16:13 Venous blood - Right Hand Blood Culture - Final NO GROWTH IN 5 DAYS 08/18/20 16:24 Venous blood - Left Arm Blood Culture - Final NO GROWTH IN 5 DAYS - Physical Exam Vitals: Vital Signs (12 hours) Temp Pulse Resp BP BP Pulse Ox 08/24/20 11:01 76 16 97 08/24/20 10:58 76 16 97 08/24/20 07:51 98 F 69 20 141/91 H 99 08/24/20 07:21 97 08/24/20 04:17 99.0 F 76 20 143/93 H 95 08/24/20 00:00 96.4 F L 93 18 140/90 99 Weight Admit Weight 215 lb 12.8 oz Weight 215 lb 12.8 oz Physical Exam: The patient was seen and examined on the day of discharge. General: obese. Alert and awake HEENT: Head atraumatic, normocephalic. EOM intact Pulmonary: No wheezing or crackles CVS: Normal S1 and S2. Regular rate. Abdomen: Soft, nontender, nondistended Extremities: Without edema. Good range of motion in all extremities Skin: Warm and well perfused Psych: Mood and affect appropriate. Neuro: Grossly intact Problem - Discharge Plan Assessment: Please refer to hospital course - Problem (1) Acute and chronic respiratory failure with hypoxia Code(s): J96.21 - ACUTE AND CHRONIC RESPIRATORY FAILURE WITH HYPOXIA Status: Acute (2) CKD (chronic kidney disease), stage III Code(s): N18.3 - CHRONIC KIDNEY DISEASE, STAGE 3 (MODERATE) * DO NOT USE * Status: Chronic (3) COPD exacerbation Code(s): J44.1 - CHRONIC OBSTRUCTIVE PULMONARY DISEASE W (ACUTE) EXACERBATION Status: Chronic (4) DM type 2 (diabetes mellitus, type 2) Status: Chronic (5) Hypertension Code(s): I10 - ESSENTIAL (PRIMARY) HYPERTENSION Status: Chronic Qualifiers: Hypertension type: essential hypertension Qualified Code(s): I10 - Essential (primary) hypertension Plan - Discharge Medications Prescriptions: Mometasone/Formoterol 200/5 [Dulera 200 Mcg/5 Mcg Inhaler] 2 puff INH BID-RT #1 inh predniSONE 50 mg PO QAM-WM #7 tab Tiotropium [place] [Spiriva] 18 mcg IH DAILY #1 inhaler Home Medications: Medication Instructions Recorded Confirmed Type Aspirin [Aspirin EC] 81 mg PO DAILY 12/10/17 04/14/20 History Atorvastatin Calcium [Lipitor] 20 mg PO HS 12/10/17 04/14/20 History Clopidogrel Bisulfate [Clopidogrel] 75 mg PO DAILY 12/10/17 08/21/20 History FLUoxetine HCl [Prozac] 40 mg PO DAILY 12/10/17 04/14/20 History Ferrous Sulfate [Feosol] 325 mg PO DAILY 12/10/17 04/14/20 History Gabapentin [Neurontin] 600 mg PO TID 12/10/17 04/14/20 History Montelukast Sodium [Singulair] 10 mg PO DAILY 12/10/17 08/21/20 History Pantoprazole [Protonix] 40 mg PO DAILY 12/10/17 08/21/20 History Polyethylene Glycol 3350 [Miralax] 17 gm PO DAILY 12/10/17 04/14/20 History Theophylline Anhydrous [Carlos-24] 200 mg PO BID 12/10/17 04/14/20 History busPIRone HCl [Buspar] 5 mg PO BID 12/10/17 04/14/20 History clonazePAM 0.5 mg PO HS 12/10/17 08/21/20 History Insulin Glargine,Hum.Rec.Anlog 20 units SQ HS 12/21/17 04/14/20 History [Lantus] Insulin Lispro [Humalog Kwikpen 10 unit SQ ACHS 12/21/17 04/14/20 History U-100] Ipratropium/Albuterol Sulfate 3 ml NEB QID PRN 12/21/17 04/14/20 History [DuoNeb] Benzonatate 200 mg PO TID 04/14/20 04/14/20 History Brompheniramine/Pseudoephed/Dm 10 ml PO Q4HR PRN 04/14/20 04/14/20 History [Bromfed DM Cough Syrup] Cyclobenzaprine HCl 5 mg PO TID 04/14/20 04/14/20 History Eszopiclone [Lunesta] 1 mg PO HS 04/14/20 04/14/20 History Ondansetron [Zofran ODT] 4 mg PO Q6HR PRN 04/14/20 04/14/20 History Promethazine HCl/Codeine 5 ml PO Q6H PRN 04/14/20 04/14/20 History [Prometh-Codein 6.25-10 mg/5 ml] Spironolactone [Aldactone] 25 mg PO DAILY 04/14/20 08/21/20 History Venlafaxine HCl [Venlafaxine HCl 150 mg PO DAILY 04/14/20 04/14/20 History ER] Amlodipine [Norvasc] 2.5 mg PO DAILY #30 tab 04/19/20 08/21/20 Rx Azithromycin [Zithromax] 250 mg PO DAILY #2 tab 04/19/20 Rx Cefdinir [Omnicef] 600 mg PO DAILY #7 cap 04/19/20 Rx traMADol HCl [Tramadol HCl] 50 mg PO BID 08/19/20 08/19/20 History Isosorbide Mononitrate [Isosorbide 30 mg PO DAILY 08/21/20 08/21/20 History Mononitrate ER] Losartan Potassium 50 mg PO DAILY 08/21/20 08/21/20 History Nebivolol HCl [Bystolic] 5 mg PO DAILY 08/21/20 08/21/20 History Atorvastatin Calcium [Lipitor] 20 mg PO DAILY tab 08/24/20 Rx Finasteride [Proscar] 5 mg PO HS tab 08/24/20 Rx Insulin Glargine [Lantus Vial] 20 units SC HS vial 08/24/20 Rx Mometasone/Formoterol 200/5 2 puff INH BID-RT #1 inh 08/24/20 Rx [Dulera 200 Mcg/5 Mcg Inhaler] Tiotropium [place] [Spiriva] 18 mcg IH DAILY #1 inhaler 08/24/20 Rx predniSONE 50 mg PO QAM-WM #7 tab 08/24/20 Rx Allergies: levofloxacin [From Levaquin] Allergy (Unknown, Verified 08/18/20 23:38) Dizziness tamsulosin [From Flomax] Allergy (Unknown, Verified 08/18/20 23:38) Dizziness - Follow up Plan Referrals: Kashmir Edwards DO [Primary Care Provider] - Disposition: HOME HEALTH Quality - Care Measures CORE MEASURES:: N/A - Stroke/TIA Did you prescribe antithrombotic therapy?: No Specify reason for no DC antithrombotic therapy: Treatment not indicated
[2020-08-24 12:05] VITALS: BP 151/91; TEMP 98.1
--- NOTE | 2020-08-26 04:29 | PQF ---
Dear : Prince Timothy Date 08/26/2020 Please exercise your independent, professional judgment in responding to the clarification form. Clinical indicators are provided on the bottom of this form for your review Please check appropriate box(es): [ ] Sepsis [ ] Severe sepsis with associated acute organ dysfunction: [ ] Acute on chronic Respiratory Failure [ ] Septic Shock [x] No sepsis [ ] Other diagnosis, please specify [ ] Unable to determine Physician Signature: Date/Time: For continuity of documentation, please document condition throughout progress notes and discharge summary. Thank You. To be completed by CDI/Coding staff for physician review: Present Clinical Indicators - Signs / Symptoms / Labs Results and Location in Medical Record [ x ] VS: BP: 85/63, Pulse: 105, RR: 26, T: 98.1 ED Provider pg.2 [ x ] Tachycardic ED Provider pg.2 [ x ] hypotensive ED Provider pg.2 [ x ] Respiratory rate increased ED Provider pg.2 [ x ] Complicated by sepsis with hypotension ED Provider pg.3 [ x ] Sepsis ED Provider pg.4 [ x ] WBC: 10.9H, 13.9H, 10.1 Laboratory [ x ] Lactic acid: 2.3H, 3.5H, 3.2H, 2.7H, 2.7H Laboratory [ x ] Progressive worsening with whitish sputum production H and P pg.1 [ x ] Blood culture no growth for 5 days Microbiology [ x ] Acute on chronic respiratory failure H and P pg.2 [ x ] Lactic Acidosis HP 08/18 Present Risk Factors Results and Location in Medical Record [ x ] 64 years old H and P pg.1 [ x ] ERLIN H and P pg.1 [ x ] COPD H and P pg.1 [ x ] Former Smoker ED Notes 08/18 [ x ] DM HP 08/18 [ x ] Obesity DS 08/24 Present Treatments Results and Location in Medical Record [ x ] BiPAP H and P pg.1 [ x ] IV Fluids MAR [ x ] Lactic acid monitoring Laboratory [ x ] WBC Monitoring Laboratory [ x ] Blood culture Microbiology [ x ] Azithromycin 250mg PO MAR [ x ] Azithromycin 500mg IV MAR [ x ] Rocephin 1gm IV MAR CDS/Director Of Land Acquisition Signature: Usama Morillo Phone #: [phone] Date 08/26/19 This is a permanent part of the Medical Record [facility]
== END 2020-08-24 12:45 | disposition home health service (06) | DRG 189 ==
LOC: ERS 15:39 → ERHOLD 17:31 → 2SE 22:50
PROVIDERS: ADMIT Internal Medicine; ATTEND Internal Medicine
PROC: 5A09457 Assistance with Respiratory Ventilation, 24-96 Consecutive Hours, Continuous Positive Airway Pressure (ICD-10-PCS; principal; 2020-08-18)
DX: J96.21 Acute and chronic respiratory failure with hypoxia (principal); J44.1 Chronic obstructive pulmonary disease with (acute) exacerbation; I13.0 Hypertensive heart and chronic kidney disease with heart failure and stage 1 through stage 4 chronic kidney disease, or unspecified chronic kidney disease; I50.32 Chronic diastolic (congestive) heart failure; E87.2 Acidosis; Z20.822 Contact with and (suspected) exposure to COVID-19; Z23 Encounter for immunization; G47.33 Obstructive sleep apnea (adult) (pediatric); N18.30 Chronic kidney disease, stage 3 unspecified; E66.9 Obesity, unspecified; I25.10 Atherosclerotic heart disease of native coronary artery without angina pectoris; E11.22 Type 2 diabetes mellitus with diabetic chronic kidney disease; I25.2 Old myocardial infarction; Z85.828 Personal history of other malignant neoplasm of skin; Z95.5 Presence of coronary angioplasty implant and graft; Z98.890 Other specified postprocedural states; Z88.1 Allergy status to other antibiotic agents; Z99.81 Dependence on supplemental oxygen; Z68.34 Body mass index [BMI] 34.0-34.9, adult; Z99.89 Dependence on other enabling machines and devices
CPT/HCPCS: 0240U; 36415; 36416; 71045; 71275; 80048; 80053; 83605; 83880; 84484; 85025; 85610; 85652; 85730; 86140; 87040; 89220; 90471; 90732; 93005; 94640; 94660; 94667; 94668; 94760; 96365; 96367; 99292; G0009; J0132; J0456; J0696; J1815; J1940; J2930; J3490; J7050; J7512; J7620; Q9967

== ENCOUNTER 2022-09-27 19:27 | Emergency (ER) | payer MEDICARE, MEDICAID ==
[~2022-09-27 19:27] MED LIST: Iopamidol-370 76% 500 ML 1 ML ONE
[2022-09-27 20:55] LABS: ALT (SGPT) Less than 7 U/L (8-55); AST (SGOT) 9 U/L (5-34); Albumin 3.8 g/dL (3.4-4.8); Alkaline Phosphatase 122 U/L (40-110); Anion Gap 19 mmol/L (10-20); BUN (Urea Nitrogen) 16 mg/dL (8.4-25.7); Bilirubin, Total 0.5 mg/dL (0.2-1.2); Calc. Creatinine Clearance 0 mL/min (70-130); Calcium 9.9 mg/dL (7.8-10.44); Carbon Dioxide 26 mmol/L (23-31); Chloride 105 mmol/L (98-107); Estimated GFR 94; Globulin 4.4 g/dL (2.4-3.5); Glucose 107 mg/dL (80-115); Lipase Less than 4 U/L (8-78); Potassium 4.3 mmol/L (3.5-5.1); Protein, Total 8.2 g/dL (5.8-8.1); Sodium 146 mmol/L (136-145)
[2022-09-27 21:16] LABS: #Basophils 0.1 thou/uL (0.0-0.2); #Eosinphils 0.9 thou/uL (0.0-0.7); #Lymphocytes 3.4 thou/uL (1.20-3.40); #Neutrophils 8.6 thou/uL (1.40-6.50); %Basophils 0.7 % (0.0-1.0); %Eosinophils 6.7 % (0.0-10.0); %Lymphocytes 24.4 % (21.0-51.0); %Monocytes 7.4 % (0.0-10.0); %Neutrophils 60.8 % (42.0-75.0); Hemoglobin 16.6 g/dL (14.0-18.0); Mean Corpuscular Hemoglobin 28.4 pg (27.0-31.0); Mean Corpuscular Volume 91.6 fl (78.0-98.0); Mean Platelet Volume 8.3 fL (7.4-10.4); Platelet Count 348 10x3/uL (130-400); RBC Distribution Width 14.6 % (11.5-14.5); Red Blood Cell (RBC) Count 5.86 mill/uL (4.70-6.10); White Blood Cell (WBC) Count 14.1 10x3/uL (4.8-10.8)
[2022-09-27 22:53] LABS: Bilirubin Negative (Negative); Blood, Urine Negative (Negative); Clarity Clear (Clear); Glucose, Urine (Dipstick) 100 mg/dL (Negative); Ketone, Urine Negative (Negative); Leukocyte Negative Leu/uL (Negative); Nitrite Negative (Negative); Protein, Urine (Dipstick) Negative (Neg-Trace); Specific Gravity, Urine 1.013 (1.002-1.036); Urobilinogen Normal mg/dL (Less than 2); pH, Urine 7.5 (5.0-9.0)
== END 2022-09-27 23:24 | disposition home or self-care (01) ==
LOC: ERS 19:27
DX: N30.90 Cystitis, unspecified without hematuria (principal); D72.829 Elevated white blood cell count, unspecified; I11.0 Hypertensive heart disease with heart failure; I50.9 Heart failure, unspecified; E11.9 Type 2 diabetes mellitus without complications; Z87.891 Personal history of nicotine dependence
CPT/HCPCS: 71045; 74177; 80053; 81003; 82550; 83690; 84484; 85025; Q9967